=== PATIENT | male | born 1995 | race Caucasian/White ===

== ENCOUNTER 2016-08-19 13:06 | Emergency (ER) | payer OTHER ==
[~2016-08-19] VITALS: Ht 182.9 cm; Wt 102.0 kg
[~2016-08-19 13:06] MED LIST: PROM25TA5 PO
[2016-08-19 13:08] VITALS: BP 136/104; PULSE 110; RESP 16; TEMP 97.2; O2SAT 95
[2016-08-19 13:23] VITALS: O2SAT 100
[2016-08-19] MEDS ORDERED: predniSONE 20 MG TAB PO ONE (13:30)
[2016-08-19] MEDS: RESP: ALBUTEROL 2.5 MG/IPRATROPIUM 0.5 MG NEB (SCH) INH ×2 (13:30→13:31)
--- NOTE | 2016-08-19 13:30 | PD ---
HPI Chief Complaint: Respiratory Symptoms Time Seen by Provider: 13:13 Travel History International Travel<30 days: No Contact w/Intl Traveler<30days: No Traveled to known affect area: No History of Present Illness HPI The patient is a 21-year-old male who presents to the emergency department for shortness of breath and wheezing. The patient notes a week and a half of URI symptoms with cough and congestion. The patient then started wheezing and was seen by his primary physician. The patient was placed on a steroid inhaler which did help for several days, however, his symptoms are not progressing. The patient does complain of a dry nonproductive cough, chest tightness, and audible wheezing. The patient does have a history of asthma with admissions as a child, but no recent hospitalizations. The patient denies any previous intubations. The patient has been using his albuterol inhaler, however, is not currently using his albuterol nebulizer, secondary to running out of his medications. The patient's symptoms are moderate, possibly exacerbated by history of asthma and recent URI, and mildly alleviated with steroid inhaler and albuterol inhaler. PFSH Past Medical History Asthma: Yes Autoimmune Disease: No Blood Disorders: No Anxiety: No Depression: No Cardiovascular Problems: No Diminished Hearing: No Endocrine: No Gastrointestinal Disorders: Yes (per patient "they can't figure out what's wrong" N,V.) Genitourinary: No Immune Disorder: No Musculoskeletal: No Neurologic: Yes (CONCUSSION) Psychiatric: No Reproductive: No Respiratory: Yes (ASTHMA) Tetanus Vaccination: < 5 Years Influenza Vaccination: Yes Past Surgical History Other Surgery: No Social History Alcohol Use: No Tobacco Use: Yes (1/2PPD) Substance Use: Yes (last marajuana 1 week ago) Allergies-Medications (Allergen,Severity, Reaction): Coded Allergies: Dextromethorphan (Verified Allergy, Intermediate, HIVES, 08/19/16) Reported Meds & Prescriptions Reported Meds & Active Scripts Active Review of Systems Except as stated in HPI: all other systems reviewed are Neg General / Constitutional: No: Fever HENT: Positive: Congestion Cardiovascular: Positive: Chest Pain or Discomfort (tightness) Respiratory: Positive: Cough, Shortness of Breath, Wheezing Gastrointestinal: No: Nausea, Vomiting Musculoskeletal: No: Edema Physical Exam Narrative GENERAL: Awake, alert, pleasant 21-year-old male appears his stated age and is in no acute respiratory distress. SKIN: Warm and dry. HEAD: Atraumatic. Normocephalic. EYES: No injection or drainage. ENT: No nasal bleeding or discharge. Mucous membranes pink and moist. NECK: Trachea midline. No JVD. CARDIOVASCULAR: Regular, tachycardic with a heart rate of 110. RESPIRATORY: No accessory muscle use. Prolonged expiratory phase with diffuse wheezing. GASTROINTESTINAL: Abdomen soft, non-tender, nondistended. No rebound tenderness. MUSCULOSKELETAL: No obvious deformities. No clubbing. No cyanosis. No edema. NEUROLOGICAL: Awake and alert. No obvious cranial nerve deficits. Motor grossly within normal limits. Normal speech. PSYCHIATRIC: Appropriate mood and affect; insight and judgment normal. Data Data Last Documented VS Vital Signs Date Time Temp Pulse Resp B/P Pulse Ox O2 Delivery O2 Flow Rate FiO2 08/19/16 13:24 70 16 100 Room Air 08/19/16 13:08 97.2 136/104 Orders Ecg Monitoring (08/19/16 13:18) Oximetry (08/19/16 13:18) Oxygen Administration (08/19/16 13:18) Chest, Single Ap (08/19/16 13:18) Albuterol-Ipratropium Neb (Duoneb Neb) (08/19/16 13:30) Prednisone (Deltasone) (08/19/16 13:30) MDM Medical Decision Making Medical Screen Exam Complete: Yes Emergency Medical Condition: Yes Medical Record Reviewed: Yes Interpretation(s) Chest x-ray reveals negative chest for acute disease. Evidence for previous reduction of clavicular fracture noted on the right. Differential Diagnosis Differential diagnosis includes reactive airway disease, asthma exacerbation, bronchitis, pneumonia, pulmonary embolism, pleural effusion, cardiomyopathy, congestive heart failure. Narrative Course The patient was administered prednisone 60 mg orally. Chest x-ray was obtained. The patient was then provided duo nebs 3. Chest x-ray was negative. The patient was reassessed at 2 PM, his symptoms had significantly improved. The patient be discharged home on prednisone and albuterol nebulizers. He is advised to return if symptoms worsen or progress. Diagnosis Primary Impression: Asthma exacerbation Patient Instructions: General Instructions Additional Instructions: Medications as directed. Follow-up with your primary physician. Return if symptoms worsen or progress. Med/Other Pt SpecificInfo: Prescription(s) given Scripts Albuterol Neb 2.5 Mg/3 Ml Neb2.5 Mg NEB Q4HR NEB #60 NEBULE Ref 0 While awake Prov:Guillermo Rodas MD 08/19/16 Prednisone (Deltasone)20 Mg Tab40 Mg PO DAILY 4 Days Ref 0 Prov:Guillermo Rodas MD 08/19/16 Disposition: 01 DISCHARGE HOME Condition: Stable Guillermo Rodas MD Aug 19, 2016 13:30
--- NOTE | 2016-08-19 13:46 | RADHPO ---
EXAM DATE/TIME: 08/19/2016 13:26 [facility] COMPARISON: CHEST SINGLE AP, March 04, 2015, 22:42. INDICATIONS : Patient states shortness of breath. MEDICAL HISTORY : Asthma SURGICAL HISTORY : None. ENCOUNTER: Initial ACUITY: 1 day PAIN SCORE: 0/10 LOCATION: Bilateral chest FINDINGS: Evidence for previous reduction of clavicular fracture is noted. Lungs are clear. Heart and pulmona ry vascularity are normal. CONCLUSION: Negative chest for acute disease. Chato Vang MD FACR on August 19, 2016 at 13:42 Board Certified Radiologist. This report was verified electronically.
[2016-08-19] MEDS ORDERED: ALBU0.08 NEB (14:03)
[2016-08-19] MEDS ORDERED: PRED-503 PO (14:03)
== END 2016-08-19 14:34 | disposition home or self-care (01) ==
LOC: PHED 13:06
DX: J45.901 Unspecified asthma with (acute) exacerbation (principal); R00.0 Tachycardia, unspecified; F17.210 Nicotine dependence, cigarettes, uncomplicated
CPT/HCPCS: 71010; 94640; 94664; 99284; J7512

== ENCOUNTER 2016-08-26 07:38 | Emergency (ER) | payer OTHER ==
[~2016-08-26] VITALS: Ht 182.9 cm; Wt 110.0 kg
[~2016-08-26 07:38] MED LIST changes: +ALBU0.08 NEB; +PRED-503 PO; -PROM25TA5 PO
[2016-08-26 07:42] VITALS: BP 153/85; PULSE 116; RESP 28; TEMP 98.2; O2SAT 92
[2016-08-26 07:45] VITALS: RESP 20; O2SAT 93; O2SAT 97
[2016-08-26] MEDS: RESP: ALBUTEROL 2.5 MG/IPRATROPIUM 0.5 MG NEB (SCH) INH (07:55)
--- NOTE | 2016-08-26 07:55 | PD ---
HPI Chief Complaint: Respiratory Symptoms Time Seen by Provider: 07:45 Travel History International Travel<30 days: No Contact w/Intl Traveler<30days: No Traveled to known affect area: No History of Present Illness HPI This patient complains of shortness of breath. He has history of asthma and smokes. He does have nebulizer at home. Started this morning. Duration 3 hours. Symptoms are severe. No alleviating factors. He is not having chest pain. No productive cough or fever. He has a chronic dry cough and wheezes often. He arrives critically ill with respiratory rate in the 40s and room air saturation of 88% and very dyspneic. PFSH Past Medical History Asthma: Yes Autoimmune Disease: No Blood Disorders: No Anxiety: No Depression: No Cardiovascular Problems: No Diminished Hearing: No Endocrine: No Gastrointestinal Disorders: Yes (per patient "they can't figure out what's wrong" N,V.) Genitourinary: No Immune Disorder: No Musculoskeletal: No Neurologic: Yes (CONCUSSION) Psychiatric: No Reproductive: No Respiratory: Yes Influenza Vaccination: Yes ?: Not Past Surgical History Other Surgery: No Social History Alcohol Use: No Tobacco Use: Yes (1/2PPD) Substance Use: Yes (last marajuana 1 week ago) Allergies-Medications (Allergen,Severity, Reaction): Coded Allergies: Dextromethorphan (Verified Allergy, Intermediate, HIVES, 08/26/16) Reported Meds & Prescriptions Reported Meds & Active Scripts Active Albuterol Neb (Albuterol Sulfate) 2.5 Mg/3 Ml Neb 2.5 Mg NEB Q4HR NEB While awake Review of Systems General / Constitutional: No: Fever Eyes: No: Visual changes HENT: No: Headaches Cardiovascular: Positive: Tachycardia, No: Chest Pain or Discomfort Respiratory: Positive: Cough, Shortness of Breath, Wheezing Gastrointestinal: No: Abdominal Pain Genitourinary: No: Dysuria Musculoskeletal: No: Pain Skin: No Rash Neurologic: No: Weakness Psychiatric: No: Depression Endocrine: No: Polydipsia Hematologic/Lymphatic: No: Easy Bruising Physical Exam Narrative GENERAL: Well-nourished, well-developed patient in respiratory distress. SKIN: Warm and dry. HEAD: Atraumatic. Normocephalic. EYES: Pupils equal and round. No scleral icterus. No injection or drainage. ENT: No nasal bleeding or discharge. Mucous membranes pink and moist. NECK: Trachea midline. No JVD. CARDIOVASCULAR: Regular rate and rhythm. No murmur appreciated. Tachycardic at 120 RESPIRATORY: Positive accessory muscle use. Diffuse expiratory wheezing without crackles. Respiratory rate of 45. GASTROINTESTINAL: Abdomen soft, non-tender, nondistended. Hepatic and splenic margins not palpable. MUSCULOSKELETAL: No obvious deformities. No clubbing. No cyanosis. No edema. NEUROLOGICAL: Awake and alert. No obvious cranial nerve deficits. Motor grossly within normal limits. Normal speech. PSYCHIATRIC: Appropriate mood and affect; insight and judgment normal. Data Data Last Documented VS Vital Signs Date Time Temp Pulse Resp B/P Pulse Ox O2 Delivery O2 Flow Rate FiO2 08/26/16 09:16 110 16 92 Nasal Cannula 2 08/26/16 08:30 143/74 08/26/16 07:42 98.2 Orders Complete Blood Count With Diff (08/26/16 07:48) Basic Metabolic Panel (Bmp) (08/26/16 07:48) Iv Access Insert/Monitor (08/26/16 07:48) Ecg Monitoring (08/26/16 07:48) Oximetry (08/26/16 07:48) Oxygen Administration (08/26/16 07:48) Chest, Single Ap (08/26/16 07:48) Sodium Chloride 0.9% Flush (Ns Flush) (08/26/16 08:00) Methylprednisolone So Succ Inj (Solumedr (08/26/16 08:00) Albuterol-Ipratropium Neb (Duoneb Neb) (08/26/16 08:00) Labs Laboratory Tests Test 08/26/16 08:05 White Blood Count 11.9 TH/MM3 Red Blood Count 5.09 MIL/MM3 Hemoglobin 15.3 GM/DL Hematocrit 45.5 % Mean Corpuscular Volume 89.4 FL Mean Corpuscular Hemoglobin 30.1 PG Mean Corpuscular Hemoglobin 33.7 % Concent Red Cell Distribution Width 13.2 % Platelet Count 199 TH/MM3 Mean Platelet Volume 7.7 FL Neutrophils (%) (Auto) 62.5 % Lymphocytes (%) (Auto) 22.1 % Monocytes (%) (Auto) 5.7 % Eosinophils (%) (Auto) 8.4 % Basophils (%) (Auto) 1.3 % Neutrophils # (Auto) 7.4 TH/MM3 Lymphocytes # (Auto) 2.6 TH/MM3 Monocytes # (Auto) 0.7 TH/MM3 Eosinophils # (Auto) 1.0 TH/MM3 Basophils # (Auto) 0.2 TH/MM3 CBC Comment DIFF FINAL Differential Comment Sodium Level 140 MEQ/L Potassium Level 3.3 MEQ/L Chloride Level 102 MEQ/L Carbon Dioxide Level 31.4 MEQ/L Anion Gap 7 MEQ/L Blood Urea Nitrogen 11 MG/DL Creatinine 0.98 MG/DL Estimat Glomerular Filtration 95 ML/MIN Rate Random Glucose 104 MG/DL Calcium Level 9.4 MG/DL MDM Medical Decision Making Medical Screen Exam Complete: Yes Emergency Medical Condition: Yes Medical Record Reviewed: Yes Differential Diagnosis Asthma exacerbation, pneumonia, pneumothorax Narrative Course I have reviewed the patient's electronic medical record. Patient was here for asthma exacerbation one week ago IV placed I gave him a series of 3 nebulizer treatments Placed him on oxygen Extended cardiac monitoring reveals sinus tachycardia without ectopy I reviewed his chest x-ray which is normal CBC is normal Metabolic profile is normal Patient arrived critically ill and was hypoxic on room air with tachypnea and tachycardia and respiratory distress On recheck he is clinically significantly improved. No longer critically ill. Oxygen saturation on room air is now 99% There is minor residual wheeze but much improved. He needs to quit smoking 5 days of prednisone written He has a nebulizer at home and a primary physician Critical Care Narrative Aggregate critical care time was 34 minutes. Time to perform other separately billable procedures was not included in the critical care time. My time did not include minutes spent treating any other patients simultaneously or on activities that did not directly contribute to the patient's treatment. The services I provided to this patient were to treat and/or prevent clinically significant deterioration that could result in: Cardiopulmonary arrest, cardiac arrhythmia, hypoxemic brain injury I provided critical care services requiring my management, as noted below: Chart data review, documentation time, medication orders and management, vital sign assessments/reviewing monitor data, ordering and reviewing lab tests, ordering and interpreting/reviewing x-rays and diagnostic studies, care of the patient and discussion of the patient with the admitting physicians. Diagnosis Primary Impression: Acute respiratory failure with hypoxia Additional Impression: Asthma exacerbation Additional Instructions: The patient was advised to follow up with their physician and return if they worsen. Quit smoking Med/Other Pt SpecificInfo: Prescription(s) given Scripts Prednisone 20 Mg Tab40 Mg PO DAILY #10 TAB Ref 0 Take 40 mg (2 tablets) daily for 5 days Prov:Yadiel Nuno MD 08/26/16 Disposition: 01 DISCHARGE HOME Condition: Stable Yadiel Nuno MD Aug 26, 2016 07:55
[2016-08-26] MEDS ORDERED: methylPREDNISolone SOD SUCC 125 MG/2 ML VIAL IVP ONE (08:00)
[2016-08-26] MEDS ORDERED: SODIUM CHLORIDE 0.9% FLUSH 5 ML FLUSH IVF PRN (08:00)
[2016-08-26 08:15] VITALS: BP 153/85; PULSE 111; RESP 16; O2SAT 93
[2016-08-26 08:25] LABS: AUTOMATED NEUTROPHIL # 7.4 TH/MM3 (1.8-7.7); BASOPHIL # 0.2 TH/MM3 (0-0.2); BASOPHIL % 1.3 % (0.0-2.0); EOSINOPHIL % 8.4 % (0.0-4.0); HEMATOCRIT 45.5 % (39.0-51.0); HEMO FLAGS DIFF FINAL; LYMPH % 22.1 % (9.0-44.0); LYMPHOCYTE # 2.6 TH/MM3 (1.0-4.8); MEAN CELL VOLUME 89.4 FL (80.0-100.0); MEAN CORPUSCULAR HEMOGLOBIN 30.1 PG (27.0-34.0); MEAN CORPUSCULAR HGB CONC 33.7 % (32.0-36.0); MONO % 5.7 % (0.0-8.0); NEUT % 62.5 % (16.0-70.0); PLATELET COUNT 199 TH/MM3 (150-450); POTASSIUM 3.3 MEQ/L (3.5-5.1); RED BLOOD COUNT 5.09 MIL/MM3 (4.50-5.90); RED CELL DISTRIBUTION WIDTH 13.2 % (11.6-17.2); WHITE BLOOD COUNT 11.9 TH/MM3 (4.0-11.0)
[2016-08-26 08:29] LABS: BICARBONATE 31.4 MEQ/L (21.0-32.0)
[2016-08-26 08:30] VITALS: BP 143/74; PULSE 110; RESP 18; O2SAT 91
--- NOTE | 2016-08-26 09:21 | RADHPO ---
EXAM DATE/TIME: 08/26/2016 07:56 [facility] COMPARISON: CHEST SINGLE AP, August 19, 2016, 13:26. INDICATIONS : Severe short of breath. MEDICAL HISTORY : Asthma. Smoker. SURGICAL HISTORY : ORIF right clavicle. ENCOUNTER: Initial ACUITY: 1 day PAIN SCORE: 0/10 LOCATION: chest FINDINGS: A single view of the chest demonstrates the lungs to be symmetrically aerated without evidence of mas s, infiltrate or effusion. The cardiomediastinal contours are unremarkable. Osseous structures are intact with screw plate fixation device again noted over the right clavicle. There overlying a ctroca rdiogram leads and oxygen tubing. CONCLUSION: No acute disease. Wilian Ritchie MD on August 26, 2016 at 9:19 Board Certified Radiologist. This report was verified electronically.
[2016-08-26] MEDS ORDERED: PRED20 PO (10:12)
[2016-08-26 10:26] VITALS: BP 135/88
== END 2016-08-26 10:33 | disposition home or self-care (01) ==
LOC: PHED 07:45
DX: J96.01 Acute respiratory failure with hypoxia (principal); J45.901 Unspecified asthma with (acute) exacerbation; F17.210 Nicotine dependence, cigarettes, uncomplicated
CPT/HCPCS: 71010; 80048; 85025; 94640; 94664; 96374; 99291; J2930

== ENCOUNTER 2016-09-06 04:06 | Emergency (ER) | payer OTHER ==
[~2016-09-06] VITALS: Ht 182.9 cm; Wt 108.5 kg
[~2016-09-06 04:06] MED LIST changes: -PRED-503 PO; +PRED20 PO
[2016-09-06 04:21] VITALS: BP 123/86; PULSE 92; RESP 20; TEMP 97.6; O2SAT 96
[2016-09-06] MEDS ORDERED: DEXAMETHASONE SOD PHOS 4 MG/ML VIAL IM ONE (04:30)
--- NOTE | 2016-09-06 04:35 | PD ---
HPI Chief Complaint: Respiratory Symptoms Time Seen by Provider: 04:26 Travel History International Travel<30 days: No Contact w/Intl Traveler<30days: No Traveled to known affect area: No History of Present Illness HPI 31-year-old male complains of shortness of breath. Patient has history of asthma. Patient states that he woke up in the middle night with shortness of breath and wheezing. Patient denies any fever chills. Patient denies any coughing congestion. Patient denies any chest pain. Patient gave himself an albuterol treatment before coming to the emergency room. PFSH Past Medical History Asthma: Yes Autoimmune Disease: No Blood Disorders: No Anxiety: No Depression: No Cardiovascular Problems: No Diminished Hearing: No Endocrine: No Gastrointestinal Disorders: Yes (per patient "they can't figure out what's wrong" N,V.) Genitourinary: No Immune Disorder: No Musculoskeletal: No Neurologic: Yes (CONCUSSION) Psychiatric: No Reproductive: No Respiratory: Yes Tetanus Vaccination: < 5 Years Influenza Vaccination: Yes Past Surgical History Other Surgery: No Social History Alcohol Use: No Tobacco Use: Yes (1/2PPD) Substance Use: Yes (last marajuana 1 week ago) Allergies-Medications (Allergen,Severity, Reaction): Coded Allergies: Dextromethorphan (Verified Allergy, Intermediate, HIVES, 09/06/16) Reported Meds & Prescriptions Reported Meds & Active Scripts Active Albuterol Neb (Albuterol Sulfate) 2.5 Mg/3 Ml Neb 2.5 Mg NEB Q4HR NEB While awake Review of Systems General / Constitutional: No: Fever Eyes: No: Visual changes HENT: No: Headaches Cardiovascular: No: Chest Pain or Discomfort Respiratory: Positive: Shortness of Breath, Wheezing Gastrointestinal: No: Abdominal Pain Genitourinary: No: Dysuria Musculoskeletal: No: Pain Skin: No Rash Neurologic: No: Weakness Psychiatric: No: Depression Endocrine: No: Polydipsia Hematologic/Lymphatic: No: Easy Bruising Physical Exam Narrative GENERAL: Well-nourished, well-developed patient. SKIN: Warm and dry. HEAD: Normocephalic. EYES: No scleral icterus. No injection or drainage. NECK: Supple, trachea midline. No JVD or lymphadenopathy. CARDIOVASCULAR: Regular rate and rhythm without murmurs, gallops, or rubs. RESPIRATORY: Breath sounds equal bilaterally. No accessory muscle use. Patient has moderate expiratory wheezes bilaterally. No rhonchi. GASTROINTESTINAL: Abdomen soft, non-tender, nondistended. MUSCULOSKELETAL: No cyanosis, or edema. BACK: Nontender without obvious deformity. No CVA tenderness. Neurologic exam normal. Data Data Last Documented VS Vital Signs Date Time Temp Pulse Resp B/P Pulse Ox O2 Delivery O2 Flow Rate FiO2 09/06/16 04:24 96 20 96 Room Air 09/06/16 04:21 97.6 123/86 Orders Albuterol-Ipratropium Neb (Duoneb Neb) (09/06/16 04:30) Dexamethasone Inj (Decadron Inj) (09/06/16 04:30) [facility] Medical Decision Making Medical Screen Exam Complete: Yes Emergency Medical Condition: Yes Medical Record Reviewed: Yes Differential Diagnosis Differential diagnosis including acute exacerbation of asthma, bronchitis, pneumonia, PE, pneumothorax. Narrative Course 21-year-old male with shortness of breath and wheezing. History of asthma. Albuterol with Atrovent unit dose treatment 3. Decadron 8 mg IM. Diagnosis Primary Impression: Acute asthma exacerbation Qualified Code: J45.51 - Severe persistent asthma with acute exacerbation Patient Instructions: General Instructions Additional Instructions: Continue with nebulizer treatment as needed. Take medication as directed. Follow-up with personal physician. Return if worse. Advised patient to stop smoking. Med/Other Pt SpecificInfo: Prescription(s) given Scripts Prednisone (Deltasone)20 Mg Tab20 Mg PO BID #14 TAB Ref 0 Prov:Brendan Mercer MD 09/06/16 Albuterol Neb 2.5 Mg/3 Ml Neb2.5 Mg NEB Q4HR NEB #60 NEBULE Ref 0 While awake Prov:Brendan Mercer MD 09/06/16 Ipratropium Neb 0.5 Mg/2.5 Ml Amp0.5 Mg NEB Q4HR NEB #30 NEBULE Ref 0 Prov:Brendan Mercer MD 09/06/16 Disposition: 01 DISCHARGE HOME Condition: Stable Brendan Mercer MD Sep 06, 2016 04:35
[2016-09-06] MEDS: RESP: ALBUTEROL 2.5 MG/IPRATROPIUM 0.5 MG NEB (SCH) INH (04:38)
[2016-09-06 05:19] VITALS: BP 137/85; PULSE 92; RESP 18; O2SAT 96
[2016-09-06] MEDS ORDERED: IPRA0.02 NEB (05:21)
[2016-09-06] MEDS ORDERED: PRED-503 PO (05:23)
[2016-09-06] MEDS ORDERED: ALBU0.08 NEB (05:23)
== END 2016-09-06 05:33 | disposition home or self-care (01) ==
LOC: PHED 04:06
DX: J45.901 Unspecified asthma with (acute) exacerbation (principal); F17.210 Nicotine dependence, cigarettes, uncomplicated; F12.10 Cannabis abuse, uncomplicated
CPT/HCPCS: 94640; 94664; 96372; 99284; J1100

== ENCOUNTER 2016-09-11 01:35 | Emergency (ER) | payer SELFPAY ==
[~2016-09-11] VITALS: Ht 195.6 cm; Wt 109.7 kg
[~2016-09-11 01:35] MED LIST changes: +IPRA0.02 NEB; +PRED-503 PO; -PRED20 PO
[2016-09-11 01:43] VITALS: BP 145/77; PULSE 123; RESP 28; TEMP 97.7; O2SAT 94
[2016-09-11] MEDS: RESP: ALBUTEROL 2.5 MG/IPRATROPIUM 0.5 MG NEB (SCH) INH ×2 (01:54→01:55)
--- NOTE | 2016-09-11 02:12 | PD ---
HPI Chief Complaint: Respiratory Symptoms Time Seen by Provider: 01:44 Travel History International Travel<30 days: No Contact w/Intl Traveler<30days: No Traveled to known affect area: No History of Present Illness HPI The patient is a 38-year-old male with a long history of asthma who complains of fairly sudden onset of shortness of breath beginning at midnight tonight. The patient has had episodes of acute asthma since the beginning of last month. He is currently on 40 mg of prednisone daily. He denies any fever or chills. The patient denies any chest pain other than the usual tightness he gets with asthma. He gave himself an albuterol and ipratropium treatment nebulizer before he came into the emergency room tonight, this was done at 11 PM tonight. He does not have a cage maker and Dr. Miguel Winter is his primary care physician. He continues to smoke one half pack a day but he has not smoked in the last 2 weeks because of his severe asthma symptoms. He used to smoke marijuana but he has not done that in over 2 months. The patient states that the symptoms only occur when he is at home and never at work or anywhere else. PFSH Past Medical History Asthma: Yes Autoimmune Disease: No Blood Disorders: No Anxiety: No Depression: No Cardiovascular Problems: No Diminished Hearing: No Endocrine: No Gastrointestinal Disorders: Yes (per patient "they can't figure out what's wrong" N,V.) Genitourinary: No Immune Disorder: No Musculoskeletal: No Neurologic: Yes (CONCUSSION middle school age ) Psychiatric: No Reproductive: No Respiratory: Yes Past Surgical History Other Surgery: No Social History Alcohol Use: No Tobacco Use: Yes () Substance Use: Yes (july 2016) Allergies-Medications (Allergen,Severity, Reaction): Coded Allergies: Dextromethorphan (Verified Allergy, Intermediate, HIVES, 09/11/16) Reported Meds & Prescriptions Reported Meds & Active Scripts Active Deltasone (Prednisone) 20 Mg Tab 20 Mg PO BID Albuterol Neb (Albuterol Sulfate) 2.5 Mg/3 Ml Neb 2.5 Mg NEB Q4HR NEB While awake Ipratropium Neb (Ipratropium [place]) 0.5 Mg/2.5 Ml Amp 0.5 Mg NEB Q4HR NEB Review of Systems Except as stated in HPI: all other systems reviewed are Neg Physical Exam Narrative GENERAL: The patient is alert, oriented 3 in moderate respiratory distress. His vital signs show pulse of 123, respiratory rate of 28, blood pressure 145/ 77 with oximetry 94% on room air. SKIN: Warm and dry. HEAD: Atraumatic. Normocephalic. EYES: Pupils equal and round. No scleral icterus. No injection or drainage. ENT: No nasal bleeding or discharge. Mucous membranes pink and moist. NECK: Trachea midline. No JVD. CARDIOVASCULAR: Regular rate and rhythm. No murmur appreciated. RESPIRATORY: No accessory muscle use. Diminished breath sounds are present bilaterally, bilateral wheezes are heard. GASTROINTESTINAL: Abdomen soft, non-tender, nondistended. Hepatic and splenic margins not palpable. MUSCULOSKELETAL: No obvious deformities. No clubbing. No cyanosis. No edema. NEUROLOGICAL: Awake and alert. No obvious cranial nerve deficits. Motor grossly within normal limits. Normal speech. PSYCHIATRIC: Appropriate mood and affect; insight and judgment normal. Data Data Last Documented VS Vital Signs Date Time Temp Pulse Resp B/P Pulse Ox O2 Delivery O2 Flow Rate FiO2 09/11/16 01:48 123 26 94 Room Air 09/11/16 01:43 97.7 145/77 Orders Albuterol-Ipratropium Neb (Duoneb Neb) (09/11/16 01:45) Resp Peak Flow Rate (09/11/16 ) Complete Blood Count With Diff (09/11/16 02:13) Comprehensive Metabolic Panel (09/11/16 02:13) Magnesium (Mg) (09/11/16 02:13) Arterial Blood Gas (Abg) (09/11/16 02:13) Iv Access Insert/Monitor (09/11/16 02:13) Ecg Monitoring (09/11/16 02:13) Oximetry (09/11/16 02:13) Oxygen Administration (09/11/16 02:13) Sodium Chloride 0.9% Flush (Ns Flush) (09/11/16 02:15) Methylprednisolone So Succ Inj (Solumedr (09/11/16 02:15) Chest, Pa & Lat (09/11/16 02:52) Labs Laboratory Tests Test 09/11/16 09/11/16 09/11/16 02:23 02:30 03:08 Blood Gas Puncture Site RT RADIAL Blood Gas Patient Temperature 98.6 Blood Gas HCO3 26 mmol/L Blood Gas Base Excess 1.7 mmol/L Blood Gas Oxygen Saturation 94 % Arterial Blood pH 7.40 Arterial Blood Partial 43 mmHG Pressure CO2 Arterial Blood Partial 90 mmHG Pressure O2 Arterial Blood Oxygen Content 19.3 Vol % Arterial Blood 2.1 % Carboxyhemoglobin Arterial Blood Methemoglobin 1.1 % Blood Gas Hemoglobin 14.5 G/DL Blood Gas Inspired Oxygen 21 % White Blood Count 10.2 TH/MM3 Red Blood Count 4.67 MIL/MM3 Hemoglobin 14.4 GM/DL Hematocrit 41.8 % Mean Corpuscular Volume 89.4 FL Mean Corpuscular Hemoglobin 30.8 PG Mean Corpuscular Hemoglobin 34.4 % Concent Red Cell Distribution Width 13.0 % Platelet Count 195 TH/MM3 Mean Platelet Volume 8.4 FL Neutrophils (%) (Auto) 65.5 % Lymphocytes (%) (Auto) 22.8 % Monocytes (%) (Auto) 4.5 % Eosinophils (%) (Auto) 6.5 % Basophils (%) (Auto) 0.7 % Neutrophils # (Auto) 6.6 TH/MM3 Lymphocytes # (Auto) 2.3 TH/MM3 Monocytes # (Auto) 0.5 TH/MM3 Eosinophils # (Auto) 0.7 TH/MM3 Basophils # (Auto) 0.1 TH/MM3 CBC Comment DIFF FINAL Differential Comment Sodium Level 142 MEQ/L Potassium Level 3.7 MEQ/L Chloride Level 105 MEQ/L Carbon Dioxide Level 29.1 MEQ/L Anion Gap 8 MEQ/L Blood Urea Nitrogen 11 MG/DL Creatinine 1.20 MG/DL Estimat Glomerular Filtration 75 ML/MIN Rate Random Glucose 162 MG/DL Calcium Level 9.0 MG/DL Magnesium Level 2.3 MG/DL Total Bilirubin 0.1 MG/DL Aspartate Amino Transf 14 U/L (AST/SGOT) Alanine Aminotransferase 37 U/L (ALT/SGPT) Alkaline Phosphatase 78 U/L Total Protein 6.6 GM/DL Albumin 3.5 GM/DL [facility] Medical Decision Making Medical Screen Exam Complete: Yes Emergency Medical Condition: Yes Medical Record Reviewed: Yes Differential Diagnosis Acute asthma, allergic reaction, pneumonia Narrative Course The patient has acute asthma. Apparently, there is something in his home that he is allergic to horse at his asthma. This may be pollen. It may be a good idea to close his windows and turn on the air conditioner and change the air- conditioner filters. He is told that pollen often builds up in the home when the windows are open. He should follow-up with a cage maker. It is now [id number] and the patient feels much better and wants to go home. Diagnosis Primary Impression: Acute asthma exacerbation Additional Instructions: As we discussed, follow-up with a cage maker. It may benefit you to close the windows, turned on the air conditioner and change the air-conditioner filters. Take the steroids as prescribed. Med/Other Pt SpecificInfo: No Change to Meds Disposition: 01 DISCHARGE HOME Condition: Stable Toi Espinoza MD Sep 11, 2016 02:12
[2016-09-11] MEDS ORDERED: SODIUM CHLORIDE 0.9% FLUSH 5 ML FLUSH IVF PRN (02:15)
[2016-09-11] MEDS ORDERED: methylPREDNISolone SOD SUCC 125 MG/2 ML VIAL IVP ONE (02:15)
[2016-09-11 02:31] LABS: BLOOD GAS BASE EXCESS 1.7 mmol/L (-2-2); BLOOD GAS CARBOXYHEMOGLOBIN 2.1 % (0-4); BLOOD GAS HCO3 26 mmol/L (22-26); BLOOD GAS METHEMOGLOBIN 1.1 % (0-2); BLOOD GAS O2 HGB SATURATION 94 % (90-100); BLOOD GAS OXYGEN CONTENT 19.3 Vol % (12.0-20.0); BLOOD GAS PCO2 43 mmHG (38-42); BLOOD GAS PO2 90 mmHG (61-120); BLOOD GAS TOTAL HGB 14.5 G/DL (12.0-16.0); TEMP CORR TO 98.6
[2016-09-11 02:32] LABS: CRITICAL VALUE NO; DRAW SITE RT RADIAL; FIO2 21 %; NUMBER OF ARTERIAL PUNCTURES 1; STAT YES; ULNAR PULSE Y
[2016-09-11 02:54] LABS: AUTOMATED NEUTROPHIL # 6.6 TH/MM3 (1.8-7.7); BASOPHIL # 0.1 TH/MM3 (0-0.2); BASOPHIL % 0.7 % (0.0-2.0); EOSINOPHIL # 0.7 TH/MM3 (0-0.4); EOSINOPHIL % 6.5 % (0.0-4.0); HEMATOCRIT 41.8 % (39.0-51.0); HEMO FLAGS DIFF FINAL; LYMPH % 22.8 % (9.0-44.0); LYMPHOCYTE # 2.3 TH/MM3 (1.0-4.8); MEAN CELL VOLUME 89.4 FL (80.0-100.0); MEAN CORPUSCULAR HEMOGLOBIN 30.8 PG (27.0-34.0); MEAN CORPUSCULAR HGB CONC 34.4 % (32.0-36.0); MONO % 4.5 % (0.0-8.0); NEUT % 65.5 % (16.0-70.0); PLATELET COUNT 195 TH/MM3 (150-450); RED BLOOD COUNT 4.67 MIL/MM3 (4.50-5.90); WHITE BLOOD COUNT 10.2 TH/MM3 (4.0-11.0)
[2016-09-11 03:24] LABS: CHLORIDE 105 MEQ/L (98-107); POTASSIUM 3.7 MEQ/L (3.5-5.1); SODIUM (NA) 142 MEQ/L (136-145)
[2016-09-11 03:28] LABS: ANION GAP 8 MEQ/L (5-15); BICARBONATE 29.1 MEQ/L (21.0-32.0); BLOOD UREA NITROGEN 11 MG/DL (7-18); MAGNESIUM 2.3 MG/DL (1.5-2.5)
[2016-09-11 03:31] LABS: ALT (GPT) 37 U/L (12-78); AST (GOT) 14 U/L (15-37); GLOMERULAR FILTRATION RATE 75 ML/MIN (>89)
[2016-09-11 03:33] LABS: TOTAL BILIRUBIN ADULT 0.1 MG/DL (0.2-1.0)
[2016-09-11 03:34] LABS: ALKALINE PHOSPHATASE 78 U/L (45-117)
[2016-09-11 04:21] VITALS: BP 118/67
--- NOTE | 2016-09-11 04:39 | RADHPO ---
EXAM DATE/TIME: 09/11/2016 03:21 [facility] COMPARISON: CHEST SINGLE AP, August 26, 2016, 7:56. INDICATIONS : Patient states shortness of breath. MEDICAL HISTORY : Asthma SURGICAL HISTORY : Clavicle repair 2014 ENCOUNTER: Initial ACUITY: 2 days PAIN SCORE: 2/10 LOCATION: Bilateral chest FINDINGS: PA and lateral views of the chest demonstrate the lungs to be symmetrically aerated without evidence of mass, infiltrate or effusion. The cardiomediastinal contours are unremarkable. Plating of previou s clavicle fracture again noted on the right. CONCLUSION: No acute disease. Jacob Do MD on September 11, 2016 at 4:36 Board Certified Radiologist. This report was verified electronically.
== END 2016-09-11 04:23 | disposition home or self-care (01) ==
LOC: PHED 01:35
DX: J45.901 Unspecified asthma with (acute) exacerbation (principal); F17.210 Nicotine dependence, cigarettes, uncomplicated
CPT/HCPCS: 36600; 71020; 80053; 82805; 83735; 85025; 94640; 94664; 94799; 96374; 99283; J2930

== ENCOUNTER 2016-09-26 19:21 | Observation (INO) | payer SELFPAY ==
[~2016-09-26] VITALS: Ht 182.9 cm; Wt 108.5 kg
[2016-09-26] VITALS (7 sets, daily range): BP systolic 126–137; BP diastolic 60–88; PULSE 118–125; RESP 20–22; TEMP 98.2; O2SAT 88–95
[2016-09-26] MEDS ORDERED: predniSONE 20 MG TAB PO ONE (19:45)
[2016-09-26] MEDS ORDERED: RESP: ALBUTEROL 2.5 MG/IPRATROPIUM 0.5 MG NEB (SCH) NEB ONE (19:45)
--- NOTE | 2016-09-26 19:57 | PD ---
HPI Chief Complaint: Respiratory Symptoms Time Seen by Provider: 19:27 Travel History International Travel<30 days: No Contact w/Intl Traveler<30days: No Traveled to known affect area: No History of Present Illness HPI Patient is a 21-year-old male presents emergency department for evaluation of shortness of breath. Patient states she has a history of asthma is been trying his inhalers and nebulizers at home without relief. He was last seen here on September 11. States his last time he was seen for his asthma. Patient denies any cough cold flu symptoms denies any chest pain. Denies any history of blood clots. Denies any fevers. PFSH Past Medical History Asthma: Yes Autoimmune Disease: No Blood Disorders: No Anxiety: No Depression: No Cardiovascular Problems: No Diminished Hearing: No Endocrine: No Gastrointestinal Disorders: Yes (per patient "they can't figure out what's wrong" N,V.) Genitourinary: No Immune Disorder: No Musculoskeletal: No Neurologic: Yes (CONCUSSION middle school age ) Psychiatric: No Reproductive: No Respiratory: Yes Tetanus Vaccination: < 5 Years Influenza Vaccination: Yes Past Surgical History Other Surgery: No Social History Alcohol Use: No Tobacco Use: Yes () Substance Use: Yes (july 2016) Allergies-Medications (Allergen,Severity, Reaction): Coded Allergies: Dextromethorphan (Verified Allergy, Intermediate, HIVES, 09/26/16) Reported Meds & Prescriptions Reported Meds & Active Scripts Active Albuterol Neb (Albuterol Sulfate) 2.5 Mg/3 Ml Neb 2.5 Mg NEB Q4HR NEB While awake Ipratropium Neb (Ipratropium [place]) 0.5 Mg/2.5 Ml Amp 0.5 Mg NEB Q4HR NEB Review of Systems Except as stated in HPI: all other systems reviewed are Neg Physical Exam Narrative GENERAL: Well-nourished, well-developed patient. SKIN: Warm and dry. HEAD: Normocephalic. EYES: No scleral icterus. No injection or drainage. NECK: Supple, trachea midline. No JVD or lymphadenopathy. CARDIOVASCULAR: Regular rhythm tachycardia without murmurs, gallops, or rubs. RESPIRATORY: No increased work of breathing, there are inspiratory extra wheezes and decreased air entry. No accessory muscle uses.. GASTROINTESTINAL: Abdomen soft, non-tender, nondistended. MUSCULOSKELETAL: No cyanosis, or edema. BACK: Nontender without obvious deformity. No CVA tenderness. Data Data Last Documented VS Vital Signs Date Time Temp Pulse Resp B/P Pulse Ox O2 Delivery O2 Flow Rate FiO2 09/26/16 22:30 125 20 126/73 95 Nasal Cannula 09/26/16 22:15 2 09/26/16 19:31 98.2 Orders Albuterol-Ipratropium Neb (Duoneb Neb) (09/26/16 19:45) Prednisone (Deltasone) (09/26/16 19:45) Basic Metabolic Panel (Bmp) (09/26/16 20:35) Complete Blood Count With Diff (09/26/16 20:35) Chest, Single Ap (09/26/16 20:35) Ecg Monitoring (09/26/16 20:35) Iv Access Insert/Monitor (09/26/16 20:35) Oximetry (09/26/16 20:35) Oxygen Administration (09/26/16 20:35) Albuterol-Ipratropium Neb (Duoneb Neb) (09/26/16 20:45) Sodium Chloride 0.9% Flush (Ns Flush) (09/26/16 20:45) Magnesium Sulfate 1 Gm Premix (Magnesium (09/26/16 20:45) Blood Gas Venous (Vbg) (09/26/16 20:47) Ampicillin-Sulbactam Inj (Unasyn Inj) (09/26/16 23:00) Levofloxacin 750 Mg Premix Inj (Levaquin (09/26/16 23:30) Admit Order (Ed Use Only) (09/26/16 ) Labs Laboratory Tests Test 09/26/16 09/26/16 21:00 21:03 White Blood Count 18.8 TH/MM3 Red Blood Count 5.12 MIL/MM3 Hemoglobin 15.4 GM/DL Hematocrit 46.4 % Mean Corpuscular Volume 90.6 FL Mean Corpuscular Hemoglobin 30.2 PG Mean Corpuscular Hemoglobin 33.3 % Concent Red Cell Distribution Width 13.4 % Platelet Count 147 TH/MM3 Mean Platelet Volume 9.1 FL Neutrophils (%) (Auto) 83.0 % Lymphocytes (%) (Auto) 8.5 % Monocytes (%) (Auto) 4.3 % Eosinophils (%) (Auto) 2.5 % Basophils (%) (Auto) 1.7 % Neutrophils # (Auto) 15.6 TH/MM3 Lymphocytes # (Auto) 1.6 TH/MM3 Monocytes # (Auto) 0.8 TH/MM3 Eosinophils # (Auto) 0.5 TH/MM3 Basophils # (Auto) 0.3 TH/MM3 CBC Comment AUTO DIFF Differential Comment AUTO DIFF CONFIRMED Platelet Estimate NORMAL Platelet Morphology Comment NORMAL Sodium Level 142 MEQ/L Potassium Level 3.4 MEQ/L Chloride Level 102 MEQ/L Carbon Dioxide Level 29.6 MEQ/L Anion Gap 10 MEQ/L Blood Urea Nitrogen 11 MG/DL Creatinine 1.10 MG/DL Estimat Glomerular Filtration 83 ML/MIN Rate Random Glucose 116 MG/DL Calcium Level 9.8 MG/DL Blood Gas Puncture Site LT ARM Blood Gas Patient Temperature 98.6 Venous Blood pH 7.39 Venous Blood Partial Pressure 47 mmHg CO2 Venous Blood Partial Pressure 27 mmHg O2 Venous Blood HCO3 28 mmol/L Venous Blood Oxygen Saturation 43 % Venous Blood Oxygen Content 9.5 Vol % Venous Blood Base Excess 3.7 mmol/L Oxygen Delivery Device ROOM AIR Blood Gas Inspired Oxygen 21 % MDM Medical Decision Making Medical Screen Exam Complete: Yes Emergency Medical Condition: Yes Differential Diagnosis SOB, Hypoxia, PNA, Asthma exacerbation Narrative Course Patient roomed in the ER, appears well and in NAD. Fairly hypoxic on arrival and was 91%. Given 3 duoneb on arrival, afterwards still fairly hypoxic. Patient given additional 3 duonebs. Seen saturating 88 on room air after the duonebs. Also given prednisone 60mg po, levaquin IV, magnesium IV. Discussed with Jacob Xiao and will be Admitted to Dr. Navarrete for further workup and admission. CBC and BMP show elevated WBC to 18, otherwise reassuring. CXR negative. Diagnosis Primary Impression: Acute respiratory failure with hypoxia Additional Impression: Acute asthma exacerbation Admitting Information Admitting Physician Requests: Admit Condition: Stable Zion Shook MD Sep 26, 2016 19:57
[2016-09-26] MEDS: RESP: ALBUTEROL 2.5 MG/IPRATROPIUM 0.5 MG NEB (SCH) INH ×2 (20:43→20:44)
[2016-09-26] MEDS ORDERED: SODIUM CHLORIDE 0.9% FLUSH 5 ML FLUSH IVF PRN (20:45)
--- NOTE | 2016-09-26 21:06 | RADHPO ---
EXAM DATE/TIME: 09/26/2016 20:47 [facility] COMPARISON: CHEST SINGLE AP, August 26, 2016, 7:56. INDICATIONS : Short of breath with history of asthma. MEDICAL HISTORY : asthma SURGICAL HISTORY : None. ENCOUNTER: Initial ACUITY: 2 days PAIN SCORE: 5/10 LOCATION: Bilateral upper chest FINDINGS: A single view of the chest demonstrates the lungs to be symmetrically aerated without evidence of mas s, infiltrate or effusion. The cardiomediastinal contours are unremarkable. Osseous structures are intact and stable. Stable internal fixation of the right clavicle.. CONCLUSION: No acute disease. No significant change has occurred. Teofilo Kramer MD on September 26, 2016 at 21:04 Board Certified Radiologist. This report was verified electronically.
[2016-09-26 21:12] LABS: BLOOD GAS VENOUS BASE EXCESS 3.7 mmol/L (-2-2); BLOOD GAS VENOUS HCO3 28 mmol/L (22-26); BLOOD GAS VENOUS O2 CONTENT 9.5 Vol % (9.0-17.0); BLOOD GAS VENOUS O2 HGB SAT 43 % (70-76); BLOOD GAS VENOUS PCO2 47 mmHg (44-48); BLOOD GAS VENOUS PO2 27 mmHg (35-40); BLOOD GAS VENOUS pH 7.39 (7.360-7.400); TEMP CORR TO 98.6
[2016-09-26 21:13] LABS: CRITICAL VALUE YES; DRAW SITE LT ARM; FIO2 21 %; OXYGEN DEVICE ROOM AIR; STAT YES
[2016-09-26 21:26] LABS: POTASSIUM 3.4 MEQ/L (3.5-5.1)
[2016-09-26 21:29] LABS: BICARBONATE 29.6 MEQ/L (21.0-32.0)
[2016-09-26 21:35] LABS: AUTOMATED NEUTROPHIL # 15.6 TH/MM3 (1.8-7.7); BASOPHIL # 0.3 TH/MM3 (0-0.2); BASOPHIL % 1.7 % (0.0-2.0); EOSINOPHIL # 0.5 TH/MM3 (0-0.4); EOSINOPHIL % 2.5 % (0.0-4.0); HEMATOCRIT 46.4 % (39.0-51.0); LYMPH % 8.5 % (9.0-44.0); LYMPHOCYTE # 1.6 TH/MM3 (1.0-4.8); MEAN CELL VOLUME 90.6 FL (80.0-100.0); MEAN CORPUSCULAR HEMOGLOBIN 30.2 PG (27.0-34.0); MEAN CORPUSCULAR HGB CONC 33.3 % (32.0-36.0); MONO % 4.3 % (0.0-8.0); PLATELET COUNT 147 TH/MM3 (150-450); RED BLOOD COUNT 5.12 MIL/MM3 (4.50-5.90); RED CELL DISTRIBUTION WIDTH 13.4 % (11.6-17.2); WHITE BLOOD COUNT 18.8 TH/MM3 (4.0-11.0)
[2016-09-26 21:47] LABS: HEMO FLAGS AUTO DIFF
[2016-09-26 22:14] LABS: PLATELET ESTIMATE SMEAR NORMAL (NORMAL); PLATELET MORPHOLOGY NORMAL (NORMAL); SCAN/DIFF AUTO DIFF CONFIRMED
[2016-09-26] MEDS ORDERED: AMPICILLIN-SULBACTAM INJ 3 GM in SODIUM CHLORIDE 0.9% INJ 100 ML IV ONE (23:00)
[2016-09-26] MEDS: MAGNESIUM SULFATE 1 GM PREMIX 100 ML IV SCH (23:16)
[2016-09-26] MEDS ORDERED: LEVOFLOXACIN 750 MG PREMIX INJ 150 ML IV ONE (23:30)
[2016-09-27] VITALS (10 sets, daily range): BP systolic 107–142; BP diastolic 57–78; PULSE 113–131; RESP 18–29; TEMP 96.2–98; O2SAT 92–96
[2016-09-27] MEDS: ENOXAPARIN SODIUM 40 MG/0.4 ML SYRINGE SQ SCH (00:42)
[2016-09-27] MEDS: RESP: ALBUTEROL 2.5 MG/3 ML NEB (PRN) NEB ×2 (01:54→05:24)
[2016-09-27] MEDS: RESP: IPRATROPIUM 0.5 MG/2.5 ML NEB NEB SCH ×6 (03:50→23:45)
[2016-09-27] MEDS: RESP: ALBUTEROL 2.5 MG/3 ML NEB (SCH) NEB ×6 (03:50→23:46)
[2016-09-27] MEDS: SODIUM CHLORIDE 0.9% FLUSH 5 ML FLUSH IV PRN ×2 (05:27→17:13)
[2016-09-27] MEDS ORDERED: methylPREDNISolone SOD SUCC 125 MG/2 ML VIAL IV ONE (05:30)
[2016-09-27 06:12] LABS: HEMATOCRIT 45.3 % (39.0-51.0); MEAN CELL VOLUME 89.1 FL (80.0-100.0); MEAN CORPUSCULAR HEMOGLOBIN 30.1 PG (27.0-34.0); MEAN CORPUSCULAR HGB CONC 33.8 % (32.0-36.0); PLATELET COUNT 241 TH/MM3 (150-450); RED BLOOD COUNT 5.08 MIL/MM3 (4.50-5.90); RED CELL DISTRIBUTION WIDTH 13.1 % (11.6-17.2); REVIEW FLAG FINAL; WHITE BLOOD COUNT 17.8 TH/MM3 (4.0-11.0)
[2016-09-27] MEDS ORDERED: predniSONE 20 MG TAB PO SCH (09:00)
[2016-09-27] MEDS ORDERED: POTASSIUM CHLORIDE 20 MEQ CONTROLLED RELEASE TAB PO ONE (09:45)
[2016-09-27] MEDS: SODIUM CHLORIDE 0.9% FLUSH 5 ML FLUSH IV SCH ×2 (09:55→21:49)
--- NOTE | 2016-09-27 11:05 | MH ---
cc: CHALO ALEXIS MD DATE OF ADMISSION 09/26/2016 CHIEF COMPLAINT Cough, shortness of breath HISTORY OF PRESENT ILLNESS This is a 21-year-old male with a past medical-surgical history significant for asthma. He had a concussion in the past and a smoker of a half pack a day for many years who came to the ER at [facility] complaining of shortness of breath. The patient stated that he has a history of asthma and has been trying his inhaler and nebulizer at home without relief. He is getting more and more short of breath and he said that he got short of breath to the extent that he decided to come to the [facility] ER. He denies any chest pain. Denies any fever or chills and denies any nausea or vomiting, diarrhea, or constipation. He has some yellow phlegm and has difficulty breathing, other than that, nothing significant. PAST MEDICAL HISTORY As dictated above. PAST SURGICAL HISTORY Nothing significant. SOCIAL HISTORY Denies drinking. Smoked a half-pack a day for many years and abuses drugs off and on. He is not . 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 FAMILY HISTORY Significant for diabetes mellitus and asthma. ALLERGIES TO MEDICATIONS Include and DEXTROMETHORPAN. MEDICATIONS Include: 1. Albuterol nebulizations 2.5 q. 4-hour 2. Ipratropium bromide 0.5/2.5 mL q. 4-hour REVIEW OF SYSTEMS Positive for mild shortness of breath, cough and yellow phlegm, all other review of systems are negative. PHYSICAL EXAMINATION This is a 21-year-old male laying on the bed not in acute distress. VITAL SIGNS: Temperature 96.4, heart rate 118, respiration 20, blood pressure 133/72, O2 saturation 95% on two liters nasal cannula. HEENT: Normocephalic, atraumatic. EOMI. PERRL. Oral mucosa moist. NECK: Supple. No visible thyromegaly or neck mass. Trachea is central. CARDIOVASCULAR: Regular rate and rhythm. RESPIRATORY: Bilateral mild crackles and wheezing, decreased air entry bilaterally. ABDOMEN: Soft and nontender. Bowel sounds audible. EXTREMITIES: No cyanosis or clubbing. Full range of motion of all extremities. He is awake, alert and oriented x4. No focal deficits. SKIN: Warm and dry. PSYCH: The patient is cooperative, mood and affect is normal. LABORATORY DATA Include CBC is totally unremarkable except for WBC count was 18.8 now it is 17.8. BMP totally unremarkable except for potassium 3.4 low, glucose 116 high, GFR 83 low. ABGs done showed a pH of 7.39 with pCO2 47 with pO2 27 with bicarb 28. Chest x-ray was done which shows no acute disease. No significant changes have occurred. ASSESSMENT/PLAN 1. This is a 21-year male who came to the ER diagnosed with shortness of breath secondary to asthma exacerbation. The patient is on Levaquin 750 mg p.o. daily, Solu-Medrol 40 mg IV q6h, albuterol and Atrovent nebulization q4-hour. 2. History of asthma. Continue home medication. 3. DVT prophylaxis Lovenox 40 mg subcutaneous daily. 4. GI prophylaxis Protonix 40 mg p.o. daily. 5. We are going to manage the patient on a daily basis and make recommendations on a daily basis. Chalo Alexis MD EA/OLIVIA /10:49 AM /10:58 AM
[2016-09-27] MEDS: methylPREDNISolone SOD SUCC 40 MG/1 ML VIAL IV SCH ×2 (12:32→17:12)
[2016-09-27] MEDS: LEVOFLOXACIN 750 MG TAB PO SCH (21:48)
[2016-09-28] VITALS (8 sets, daily range): BP systolic 107–143; BP diastolic 60–76; PULSE 99–123; RESP 19–20; TEMP 97.1–97.4; O2SAT 91–97
[2016-09-28] MEDS: methylPREDNISolone SOD SUCC 40 MG/1 ML VIAL IV SCH ×3 (00:15→11:12)
[2016-09-28] MEDS: SODIUM CHLORIDE 0.9% FLUSH 5 ML FLUSH IV PRN ×2 (00:15→05:00)
[2016-09-28] MEDS: ENOXAPARIN SODIUM 40 MG/0.4 ML SYRINGE SQ SCH (00:15)
[2016-09-28] MEDS: RESP: ALBUTEROL 2.5 MG/3 ML NEB (SCH) NEB ×6 (04:12→23:04)
[2016-09-28] MEDS: RESP: IPRATROPIUM 0.5 MG/2.5 ML NEB NEB SCH ×6 (04:12→23:04)
[2016-09-28 07:34] LABS: BASOPHIL # 0.1 TH/MM3 (0-0.2); BASOPHIL % 0.3 % (0.0-2.0); EOSINOPHIL # 0.3 TH/MM3 (0-0.4); EOSINOPHIL % 0.9 % (0.0-4.0); HEMATOCRIT 41.4 % (39.0-51.0); LYMPH % 3.2 % (9.0-44.0); LYMPHOCYTE # 0.9 TH/MM3 (1.0-4.8); MEAN CELL VOLUME 91.7 FL (80.0-100.0); MEAN CORPUSCULAR HEMOGLOBIN 31.3 PG (27.0-34.0); MEAN CORPUSCULAR HGB CONC 34.1 % (32.0-36.0); MONO % 2.7 % (0.0-8.0); NEUT % 92.9 % (16.0-70.0); PLATELET COUNT 231 TH/MM3 (150-450); RED BLOOD COUNT 4.51 MIL/MM3 (4.50-5.90); RED CELL DISTRIBUTION WIDTH 13.7 % (11.6-17.2); WHITE BLOOD COUNT 28.1 TH/MM3 (4.0-11.0)
[2016-09-28 07:36] LABS: HEMO FLAGS DIFF FINAL
[2016-09-28 08:08] LABS: ALKALINE PHOSPHATASE 48 U/L (45-117); ALT (GPT) 29 U/L (12-78); ANION GAP 10 MEQ/L (5-15); AST (GOT) 6 U/L (15-37); BICARBONATE 26.3 MEQ/L (21.0-32.0); BLOOD UREA NITROGEN 21 MG/DL (7-18); CHLORIDE 105 MEQ/L (98-107); GLOMERULAR FILTRATION RATE 75 ML/MIN (>89); POTASSIUM 4.7 MEQ/L (3.5-5.1); SODIUM (NA) 141 MEQ/L (136-145); TOTAL BILIRUBIN ADULT 0.5 MG/DL (0.2-1.0)
--- NOTE | 2016-09-28 08:19 | HHI.PR ---
Subjective History of Present Illness Patient feel better no acute d/w family at bed side. Review of Systems Constitutional Constitutional: Fatigue, Weakness Pulmonary Respiratory: Coughing Vitals/Results Intake & Output 09/27/16 09/27/16 09/28/16 15:00 23:00 07:00 Intake Total 780 ml 0 ml 0 ml Balance 780 ml 0 ml 0 ml Intake Oral 780 ml IV Total 0 ml 0 ml # Voids 2 2 # Bowel Movements 2 Vital Signs Vital Signs Date Time Temp Pulse Resp B/P Pulse Ox O2 Delivery O2 Flow Rate FiO2 09/28/16 07:45 97 Nasal Cannula 2.00 09/28/16 04:00 97.2 106 20 107/60 95 09/28/16 00:00 97.4 121 20 130/73 95 09/27/16 20:00 96.4 119 20 135/65 95 09/27/16 19:45 95 Nasal Cannula 2.00 09/27/16 16:00 96.6 131 20 107/66 93 09/27/16 12:00 96.2 119 20 110/57 93 09/27/16 08:53 95 Nasal Cannula 2.00 CBC/BMP: 09/28/16 0715 09/28/16 0715 Lab Results Laboratory Tests Test 09/28/16 07:15 White Blood Count 28.1 TH/MM3 Red Blood Count 4.51 MIL/MM3 Hemoglobin 14.1 GM/DL Hematocrit 41.4 % Mean Corpuscular Volume 91.7 FL Mean Corpuscular Hemoglobin 31.3 PG Mean Corpuscular Hemoglobin 34.1 % Concent Red Cell Distribution Width 13.7 % Platelet Count 231 TH/MM3 Mean Platelet Volume 8.3 FL Neutrophils (%) (Auto) 92.9 % Lymphocytes (%) (Auto) 3.2 % Monocytes (%) (Auto) 2.7 % Eosinophils (%) (Auto) 0.9 % Basophils (%) (Auto) 0.3 % Neutrophils # (Auto) 26.0 TH/MM3 Lymphocytes # (Auto) 0.9 TH/MM3 Monocytes # (Auto) 0.8 TH/MM3 Eosinophils # (Auto) 0.3 TH/MM3 Basophils # (Auto) 0.1 TH/MM3 CBC Comment DIFF FINAL Differential Comment Sodium Level 141 MEQ/L Potassium Level 4.7 MEQ/L Chloride Level 105 MEQ/L Carbon Dioxide Level 26.3 MEQ/L Anion Gap 10 MEQ/L Blood Urea Nitrogen 21 MG/DL Creatinine 1.20 MG/DL Estimat Glomerular Filtration 75 ML/MIN Rate Random Glucose 145 MG/DL Calcium Level 9.8 MG/DL Total Bilirubin 0.5 MG/DL Aspartate Amino Transf 6 U/L (AST/SGOT) Alanine Aminotransferase 29 U/L (ALT/SGPT) Alkaline Phosphatase 48 U/L Total Protein 6.6 GM/DL Albumin 3.4 GM/DL Physical Exam General General Appearance: Well Developed, Well Nourished, No Acute Distress, Comfortable Eyes Eye Exam: Pupils Equal, Pupils Reactive, Sclera White, Extraocular Movement Intact Throat Throat Exam: Oral Mucosa [place] & Moist, Oral Pharynx Normal Neck Neck Exam: Neck Supple, Trachea Midline Pulmonary Resp Exam: Clear Bilaterally, Breath Sounds Equal, No Distress Cardiology CV Exam: Regular, Normal Sinus Rhythm Gastrointestinal/Abdomen GI Exam: Soft, Non-Tender, Bowel Sounds Present Musculoskeletal MS Exam: Joints Intact, Normal Tone Integumentary Skin Exam: Clear, Warm, Dry, Intact, Normal Turgor Extremeties Extremities Exam: No Edema Neurologic Neuro Exam: Alert, Awake, Oriented, Speech Clear, Moving All Extremities, No Focal Deficits Psychiatric Psych Exam: Appropriate Responses PUD Prophylasis PUD Prophylaxis: Protonix Assessment/Plan Assessment/Plan ASSESSMENT/PLAN 1. This is a 21-year male who came to the ER diagnosed with shortness of breath secondary to asthma exacerbation. The patient is on Levaquin 750 mg p.o. daily, Solu-Medrol 40 mg IV q6h, albuterol and Atrovent nebulization q4-hour. 2. History of asthma. Continue home medication. 3. DVT prophylaxis Lovenox 40 mg subcutaneous daily. 4. GI prophylaxis Protonix 40 mg p.o. daily. We are going to manage the patient on a daily basis and make recommendations on a daily basis. Discussed Condition with: Patient Chalo Kelly MD Sep 28, 2016 08:19
[2016-09-28] MEDS: SODIUM CHLORIDE 0.9% FLUSH 5 ML FLUSH IV SCH ×2 (11:12→21:52)
[2016-09-28] MEDS: BENZONATATE 100 MG CAP PO SCH ×2 (13:15→16:45)
[2016-09-28] MEDS: predniSONE 20 MG TAB PO SCH (16:00)
[2016-09-28] MEDS: LEVOFLOXACIN 750 MG TAB PO SCH (21:51)
[2016-09-29] VITALS: BP 133/70; PULSE 101; RESP 20; TEMP 96.8; O2SAT 93
[2016-09-29] MEDS: ENOXAPARIN SODIUM 40 MG/0.4 ML SYRINGE SQ SCH (00:18)
[2016-09-29] MEDS: RESP: ALBUTEROL 2.5 MG/3 ML NEB (SCH) NEB ×2 (03:09→07:34)
[2016-09-29] MEDS: RESP: IPRATROPIUM 0.5 MG/2.5 ML NEB NEB SCH ×2 (03:09→07:34)
[2016-09-29 05:51] LABS: BASOPHIL % 0.1 % (0.0-2.0); EOSINOPHIL % 0.1 % (0.0-4.0); HEMATOCRIT 38.1 % (39.0-51.0); HEMO FLAGS DIFF FINAL; LYMPH % 9.1 % (9.0-44.0); LYMPHOCYTE # 1.8 TH/MM3 (1.0-4.8); MEAN CELL VOLUME 89.7 FL (80.0-100.0); MEAN CORPUSCULAR HEMOGLOBIN 31.6 PG (27.0-34.0); MEAN CORPUSCULAR HGB CONC 35.2 % (32.0-36.0); MONO % 5.8 % (0.0-8.0); NEUT % 84.9 % (16.0-70.0); PLATELET COUNT 216 TH/MM3 (150-450); RED BLOOD COUNT 4.25 MIL/MM3 (4.50-5.90); RED CELL DISTRIBUTION WIDTH 13.3 % (11.6-17.2)
[2016-09-29 06:06] LABS: CHLORIDE 105 MEQ/L (98-107); POTASSIUM 4.3 MEQ/L (3.5-5.1); SODIUM (NA) 142 MEQ/L (136-145)
[2016-09-29 06:11] LABS: ANION GAP 9 MEQ/L (5-15); BICARBONATE 28.5 MEQ/L (21.0-32.0); BLOOD UREA NITROGEN 22 MG/DL (7-18)
[2016-09-29 06:14] LABS: ALT (GPT) 25 U/L (12-78); AST (GOT) 4 U/L (15-37); GLOMERULAR FILTRATION RATE 75 ML/MIN (>89)
[2016-09-29 06:16] LABS: TOTAL BILIRUBIN ADULT 0.4 MG/DL (0.2-1.0)
[2016-09-29 06:17] LABS: ALKALINE PHOSPHATASE 44 U/L (45-117)
[2016-09-29 07:30] VITALS: O2SAT 94
--- NOTE | 2016-09-29 08:18 | HHI.PR ---
Subjective History of Present Illness Patient feel better no acute d/w mother at bed side. wants to go home today ..ok to DC Home today Review of Systems Constitutional Constitutional: Fatigue, Weakness Pulmonary Respiratory: Coughing Vitals/Results Intake & Output 09/28/16 09/28/16 09/29/16 15:00 23:00 07:00 Intake Total 440 ml 240 ml 480 ml Balance 440 ml 240 ml 480 ml Intake Oral 440 ml 240 ml 480 ml # Voids 2 3 # Bowel Movements 0 0 Vital Signs Vital Signs Date Time Temp Pulse Resp B/P Pulse Ox O2 Delivery O2 Flow Rate FiO2 09/29/16 07:30 94 21 09/29/16 00:00 96.8 101 20 133/70 93 09/28/16 20:05 92 21 09/28/16 20:00 97.1 109 19 138/71 92 09/28/16 16:00 97.1 108 20 143/76 92 09/28/16 12:00 97.3 99 20 115/69 94 CBC/BMP: 09/29/16 0513 09/29/16 0513 Lab Results Laboratory Tests Test 09/29/16 05:13 White Blood Count 20.0 TH/MM3 Red Blood Count 4.25 MIL/MM3 Hemoglobin 13.4 GM/DL Hematocrit 38.1 % Mean Corpuscular Volume 89.7 FL Mean Corpuscular Hemoglobin 31.6 PG Mean Corpuscular Hemoglobin 35.2 % Concent Red Cell Distribution Width 13.3 % Platelet Count 216 TH/MM3 Mean Platelet Volume 8.2 FL Neutrophils (%) (Auto) 84.9 % Lymphocytes (%) (Auto) 9.1 % Monocytes (%) (Auto) 5.8 % Eosinophils (%) (Auto) 0.1 % Basophils (%) (Auto) 0.1 % Neutrophils # (Auto) 17.0 TH/MM3 Lymphocytes # (Auto) 1.8 TH/MM3 Monocytes # (Auto) 1.2 TH/MM3 Eosinophils # (Auto) 0.0 TH/MM3 Basophils # (Auto) 0.0 TH/MM3 CBC Comment DIFF FINAL Differential Comment Sodium Level 142 MEQ/L Potassium Level 4.3 MEQ/L Chloride Level 105 MEQ/L Carbon Dioxide Level 28.5 MEQ/L Anion Gap 9 MEQ/L Blood Urea Nitrogen 22 MG/DL Creatinine 1.20 MG/DL Estimat Glomerular Filtration 75 ML/MIN Rate Random Glucose 111 MG/DL Calcium Level 9.8 MG/DL Total Bilirubin 0.4 MG/DL Aspartate Amino Transf 4 U/L (AST/SGOT) Alanine Aminotransferase 25 U/L (ALT/SGPT) Alkaline Phosphatase 44 U/L Total Protein 6.3 GM/DL Albumin 3.2 GM/DL Physical Exam General General Appearance: Well Developed, Well Nourished, No Acute Distress, Comfortable Eyes Eye Exam: Pupils Equal, Pupils Reactive, Sclera White, Extraocular Movement Intact Throat Throat Exam: Oral Mucosa [place] & Moist, Oral Pharynx Normal Neck Neck Exam: Neck Supple, Trachea Midline Pulmonary Resp Exam: Clear Bilaterally, Breath Sounds Equal, No Distress Cardiology CV Exam: Regular, Normal Sinus Rhythm Gastrointestinal/Abdomen GI Exam: Soft, Non-Tender, Bowel Sounds Present Musculoskeletal MS Exam: Joints Intact, Normal Tone Integumentary Skin Exam: Clear, Warm, Dry, Intact, Normal Turgor Extremeties Extremities Exam: No Edema Neurologic Neuro Exam: Alert, Awake, Oriented, Speech Clear, Moving All Extremities, No Focal Deficits Psychiatric Psych Exam: Appropriate Responses PUD Prophylasis PUD Prophylaxis: Protonix Assessment/Plan Assessment/Plan ASSESSMENT/PLAN 1. This is a 21-year male who came to the ER diagnosed with shortness of breath secondary to asthma exacerbation. The patient is on Levaquin 750 mg p.o. daily, Prednisone 20 mg PO Daily. albuterol and Atrovent nebulization q4-hour. 2. History of asthma. Continue home medication. 3. DVT prophylaxis Lovenox 40 mg subcutaneous daily. 4. GI prophylaxis Protonix 40 mg p.o. daily. wants to go home today ..Ok to DC Home today f/u with pcp 1 week. Discussed Condition with: Patient Chalo Kelly MD Sep 29, 2016 08:18
[2016-09-29] MEDS ORDERED: LEVA750T PO (08:37)
[2016-09-29] MEDS ORDERED: BENZ100 PO (08:37)
[2016-09-29] MEDS ORDERED: PRED20 PO (08:37)
[2016-09-29] MEDS: BENZONATATE 100 MG CAP PO SCH (08:46)
[2016-09-29] MEDS: SODIUM CHLORIDE 0.9% FLUSH 5 ML FLUSH IV SCH (08:46)
[2016-09-29] MEDS: predniSONE 20 MG TAB PO SCH (08:46)
[2016-09-29] MEDS ORDERED: IPRASOL INH (10:19)
--- NOTE | 2016-10-05 08:23 | MD ---
cc: CHALO ALEXIS MD ADMISSION DATE: 09/26/2016 DISCHARGE DATE: 09/29/2016 DISPOSITION Okay to discharge the patient. CONDITION AT THE TIME OF DISCHARGE Satisfactory. ACTIVITY As tolerated. DIET Cardiac diet. ALLERGIES DEXTROMETHORPHAN. DISCHARGE MEDICATIONS 1. Tessalon Perles 100 mg p.o. t.i.d. 2. DuoNeb nebulization q.4 hours p.r.n. shortness of breath, cough, wheezing. 3. Levaquin 750 mg p.o. daily for 10 days. 4. Prednisone 20 mg p.o. daily for 5 days. 5. Continue with albuterol and ipratropium nebulization. FOLLOWUP The patient was advised to follow up with PCP in one week. ADMITTING DIAGNOSIS Shortness of breath secondary to asthmatic exacerbation. DISCHARGE DIAGNOSIS Asthma exacerbation, improved. HOSPITAL COURSE This is a 21-year male admitted with shortness of breath, diagnosed with asthma exacerbation. He was given DuoNeb nebulization and Solu-Medrol 40 mg IV q. 6 hours and also albuterol and Atrovent nebulization q. 4 hours. The patient remained stable. The patient had leukocytosis during the hospital stay. The patient discharged in satisfactory condition. The patient's chest x-ray was done, shows nothing acute and no significant change has occurred. The patient remained stable during the hospital stay. The patient had leukocytosis to start with which increased and then eventually decreased. The patient had mild hypokalemia. The patient had albumin of 3.2 which is low. Total protein was 6.3 - low, alkaline phosphatase 44 - low. The patient had a glucose of 111. Further details in the medical record. Chalo Alexis MD EA/BENITEZ /10:27 AM /8:16 AM
== END 2016-09-29 10:23 | disposition home or self-care (01) ==
LOC: PHED 19:21 → UNDOADMIN 23:33 → PHEDA 23:33 → INTOOBSV 23:34 → PHEDA 23:34 → PH3A 09-27 01:11
PROVIDERS: ADMIT Specialist; ATTEND Specialist
DX: J45.901 Unspecified asthma with (acute) exacerbation (principal); D72.829 Elevated white blood cell count, unspecified; F17.200 Nicotine dependence, unspecified, uncomplicated; Z88.8 Allergy status to other drugs, medicaments and biological substances; Z79.51 Long term (current) use of inhaled steroids
CPT/HCPCS: 71010; 80048; 80053; 82805; 85025; 85027; 94640; 94664; 94799; 96365; 96366; G0378; J1650; J1956; J2920; J2930; J3475; J7512; J7613; J7644

== ENCOUNTER 2016-10-29 06:37 | Emergency (ER) | payer SELFPAY ==
[~2016-10-29] VITALS: Ht 185.4 cm; Wt 113.0 kg
[~2016-10-29 06:37] MED LIST changes: +BENZ100 PO; +IPRASOL INH; +LEVA750T PO; -PRED-503 PO; +PRED20 PO
[2016-10-29 06:49] VITALS: BP 153/74; PULSE 113; RESP 22; TEMP 98.4; O2SAT 94
[2016-10-29] MEDS: RESP: ALBUTEROL 2.5 MG/IPRATROPIUM 0.5 MG NEB (SCH) INH ×2 (06:55→06:56)
[2016-10-29] MEDS ORDERED: SODIUM CHLORIDE 0.9% FLUSH 10 ML FLUSH IVF PRN (07:00)
[2016-10-29] MEDS ORDERED: SODIUM CHLOR 0.9% 1000 ML INJ 1,000 ML IV SCH (07:00)
[2016-10-29] MEDS ORDERED: methylPREDNISolone SOD SUCC 125 MG/2 ML VIAL IVP ONE (07:00)
[2016-10-29 07:01] VITALS: BP 130/82; PULSE 115; RESP 22; O2SAT 94
--- NOTE | 2016-10-29 07:02 | RADHPO ---
EXAM DATE/TIME: 10/29/2016 06:53 [facility] COMPARISON: CHEST SINGLE AP, September 26, 2016, 20:47. INDICATIONS : Shortness of breath. MEDICAL HISTORY : None. SURGICAL HISTORY : ORIF right clavicle ENCOUNTER: Initial ACUITY: 1 day PAIN SCORE: 0/10 LOCATION: Bilateral chest FINDINGS: A single view of the chest demonstrates the lungs to be symmetrically aerated without evidence of mas s, infiltrate or effusion. The cardiomediastinal contours are unremarkable. There is a surgical plat e at the right clavicle. CONCLUSION: No acute disease. Jacob Rodriguez MD on October 29, 2016 at 6:59 Board Certified Radiologist. This report was verified electronically.
[2016-10-29] MEDS ORDERED: ALBU6.7H INH (07:04)
[2016-10-29] MEDS ORDERED: FLUT1INH INH ×2 (07:04→08:50)
--- NOTE | 2016-10-29 07:05 | PD ---
HPI Chief Complaint: Respiratory Distress Time Seen by Provider: 06:46 Travel History International Travel<30 days: No Contact w/Intl Traveler<30days: No Traveled to known affect area: No History of Present Illness HPI 21-year-old male presents to the emergency department by private transportation for one day of shortness of breath. Patient has history of asthma. Patient was hospitalized 1 month ago for exacerbation of asthma. Patient denies fever chills productive cough sore throat sinus pressure drainage chest pain nausea vomiting abdominal pain flank pain skin rash joint pain or swelling. Patient is a nonsmoker. Patient is on able to identify exacerbating factors. Patient denies environmental allergens or seasonal allergens. PFSH Past Medical History Narrative Medical Asthma; no tobacco use; nursing notes reviewed Asthma: Yes Autoimmune Disease: No Blood Disorders: No Anxiety: No Depression: No Cancer: No Cardiovascular Problems: No Cerebrovascular Accident: No Diabetes: No Diminished Hearing: No Endocrine: No Gastrointestinal Disorders: Yes (per patient "they can't figure out what's wrong" N,V.) Genitourinary: No Immune Disorder: No Musculoskeletal: No Neurologic: Yes Psychiatric: No Reproductive: No Respiratory: Yes Migraines: No Seizures: No Thyroid Disease: No Past Surgical History Abdominal Surgery: No Cardiac Surgery: No Ear Surgery: No Endocrine Surgery: No Eye Surgery: No Genitourinary Surgery: No Oral Surgery: No Thoracic Surgery: No Other Surgery: No Social History Alcohol Use: No Tobacco Use: Yes (2PPD) Substance Use: Yes (MARIJUANA 07/2016) Allergies-Medications (Allergen,Severity, Reaction): Coded Allergies: Dextromethorphan (Verified Allergy, Intermediate, HIVES, 10/29/16) Reported Meds & Prescriptions Reported Meds & Active Scripts Active Albuterol Neb (Albuterol Sulfate) 2.5 Mg/3 Ml Neb 2.5 Mg NEB Q4HR NEB While awake Ipratropium Neb (Ipratropium [place]) 0.5 Mg/2.5 Ml Amp 0.5 Mg NEB Q4HR NEB Reported Breo Ellipta Inh (Fluticasone/Vilanterol) 100-25 Mcg/Act Inh 1 Puff INH DAILY Use daily at the same time. Proventil Hfa 6.7 GM Inh (Albuterol Sulfate) 90 Mcg/Act Aer 2 Puff INH Q4-6H PRN Review of Systems Except as stated in HPI: all other systems reviewed are Neg General / Constitutional: No: Fever, Chills HENT: No: Congestion Cardiovascular: No: Chest Pain or Discomfort Respiratory: Positive: Shortness of Breath, Wheezing Genitourinary: No: Flank Pain Musculoskeletal: No: Pain Skin: No Rash Neurologic: No: Weakness Psychiatric: No: Anxiety Endocrine: No: Heat Intolerance Hematologic/Lymphatic: No: Easy Bruising Physical Exam Narrative GENERAL: Well-developed well-nourished male with mild work of breathing SKIN: Warm and dry. HEAD: Normocephalic. EYES: No scleral icterus. No injection or drainage. NECK: Supple, trachea midline. No JVD or lymphadenopathy. CARDIOVASCULAR: Regular rate and rhythm without murmurs, gallops, or rubs. RESPIRATORY: Breath sounds equal bilaterally markedly diminished breath sounds with expiratory wheeze. No accessory muscle use. GASTROINTESTINAL: Abdomen soft, non-tender, nondistended. MUSCULOSKELETAL: No cyanosis, or edema. BACK: Nontender without obvious deformity. No CVA tenderness. Data Data Last Documented VS Vital Signs Date Time Temp Pulse Resp B/P Pulse Ox O2 Delivery O2 Flow Rate FiO2 10/29/16 07:02 94 Room Air 10/29/16 07:01 115 22 130/82 10/29/16 06:49 98.4 Orders Complete Blood Count With Diff (10/29/16 06:46) Basic Metabolic Panel (Bmp) (10/29/16 06:46) Magnesium (Mg) (10/29/16 06:46) Iv Access Insert/Monitor (10/29/16 06:46) Ecg Monitoring (10/29/16 06:46) Oximetry (10/29/16 06:46) Oxygen Administration (10/29/16 06:46) Chest, Single Ap (10/29/16 06:46) Sodium Chloride 0.9% Flush (Ns Flush) (10/29/16 07:00) Methylprednisolone So Succ Inj (Solumedr (10/29/16 07:00) Albuterol-Ipratropium Neb (Duoneb Neb) (10/29/16 07:00) Sodium Chlor 0.9% 1000 Ml Inj (Ns 1000 M (10/29/16 07:00) Magnesium Sulfate 1 Gm Premix (Magnesium (10/29/16 07:15) MDM Medical Decision Making Medical Screen Exam Complete: Yes Emergency Medical Condition: Yes Medical Record Reviewed: Yes Differential Diagnosis Exacerbation asthma, bronchitis, pneumonia, PE, pneumothorax Narrative Course Patient placed on secured entrance monitor IV access obtained Mirlande cabral ordered along with Solu-Medrol Care signed over to oncoming physician at 7:10 AM eJnna Messer MD Oct 29, 2016 07:05
[2016-10-29 07:09] VITALS: BP 134/80; PULSE 115; RESP 24; TEMP 98.4; O2SAT 94
[2016-10-29 07:09] LABS: AUTOMATED NEUTROPHIL # 3.1 TH/MM3 (1.8-7.7); BASOPHIL # 0.1 TH/MM3 (0-0.2); BASOPHIL % 1.2 % (0.0-2.0); EOSINOPHIL # 0.9 TH/MM3 (0-0.4); EOSINOPHIL % 11.4 % (0.0-4.0); HEMO FLAGS DIFF FINAL; LYMPH % 40.3 % (9.0-44.0); MEAN CORPUSCULAR HGB CONC 34.4 % (32.0-36.0); MONO % 6.6 % (0.0-8.0); NEUT % 40.5 % (16.0-70.0); PLATELET COUNT 213 TH/MM3 (150-450); RED BLOOD COUNT 4.67 MIL/MM3 (4.50-5.90); RED CELL DISTRIBUTION WIDTH 12.7 % (11.6-17.2); WHITE BLOOD COUNT 7.6 TH/MM3 (4.0-11.0)
[2016-10-29] MEDS ORDERED: MAGNESIUM SULFATE 1 GM PREMIX 100 ML IV ONE (07:15)
[2016-10-29 07:18] LABS: POTASSIUM 3.3 MEQ/L (3.5-5.1)
[2016-10-29 07:21] LABS: BICARBONATE 30.9 MEQ/L (21.0-32.0); MAGNESIUM 1.9 MG/DL (1.5-2.5)
--- NOTE | 2016-10-29 07:41 | PD ---
Physical Exam Date Seen by Provider: Oct 29, 2016 Data Data Last Documented VS Vital Signs Date Time Temp Pulse Resp B/P Pulse Ox O2 Delivery O2 Flow Rate FiO2 10/29/16 08:15 98.4 100 22 131/71 94 Room Air Orders Complete Blood Count With Diff (10/29/16 06:46) Basic Metabolic Panel (Bmp) (10/29/16 06:46) Magnesium (Mg) (10/29/16 06:46) Iv Access Insert/Monitor (10/29/16 06:46) Ecg Monitoring (10/29/16 06:46) Oximetry (10/29/16 06:46) Oxygen Administration (10/29/16 06:46) Chest, Single Ap (10/29/16 06:46) Sodium Chloride 0.9% Flush (Ns Flush) (10/29/16 07:00) Methylprednisolone So Succ Inj (Solumedr (10/29/16 07:00) Albuterol-Ipratropium Neb (Duoneb Neb) (10/29/16 07:00) Sodium Chlor 0.9% 1000 Ml Inj (Ns 1000 M (10/29/16 07:00) Magnesium Sulfate 1 Gm Premix (Magnesium (10/29/16 07:15) Labs Laboratory Tests Test 10/29/16 06:55 White Blood Count 7.6 TH/MM3 Red Blood Count 4.67 MIL/MM3 Hemoglobin 14.5 GM/DL Hematocrit 42.0 % Mean Corpuscular Volume 90.0 FL Mean Corpuscular Hemoglobin 31.0 PG Mean Corpuscular Hemoglobin 34.4 % Concent Red Cell Distribution Width 12.7 % Platelet Count 213 TH/MM3 Mean Platelet Volume 7.7 FL Neutrophils (%) (Auto) 40.5 % Lymphocytes (%) (Auto) 40.3 % Monocytes (%) (Auto) 6.6 % Eosinophils (%) (Auto) 11.4 % Basophils (%) (Auto) 1.2 % Neutrophils # (Auto) 3.1 TH/MM3 Lymphocytes # (Auto) 3.0 TH/MM3 Monocytes # (Auto) 0.5 TH/MM3 Eosinophils # (Auto) 0.9 TH/MM3 Basophils # (Auto) 0.1 TH/MM3 CBC Comment DIFF FINAL Differential Comment Sodium Level 144 MEQ/L Potassium Level 3.3 MEQ/L Chloride Level 107 MEQ/L Carbon Dioxide Level 30.9 MEQ/L Anion Gap 6 MEQ/L Blood Urea Nitrogen 7 MG/DL Creatinine 1.10 MG/DL Estimat Glomerular Filtration 83 ML/MIN Rate Random Glucose 132 MG/DL Calcium Level 9.3 MG/DL Magnesium Level 1.9 MG/DL [facility] Medical Record Reviewed: Yes Supervised Visit with ERICK: No Interpretation(s) Vital Signs Date Time Temp Pulse Resp B/P Pulse Ox O2 Delivery O2 Flow Rate FiO2 10/29/16 07:09 98.4 115 24 134/80 94 Room Air 10/29/16 07:02 94 Room Air 10/29/16 07:01 115 22 130/82 94 Room Air 10/29/16 06:51 122 22 94 Room Air 10/29/16 06:49 98.4 113 22 153/74 94 CBC & BMP Diagram 10/29/16 06:55 Last Impressions Chest X-Ray 10/29/16 0646 Signed Impressions: Service Date/Time: Monday, October 29, 2016 06:53 - CONCLUSION: No acute disease. Jacob Rodriguez MD Differential Diagnosis Pneumonia, asthma exacerbation, PE (though unlikely), pneumothorax Narrative Course Patient was signed out to me by Dr. Messer at change of shift. Patient is a 21-year-old male who is a known asthmatic, presents to emergency room with complaints of shortness of breath. Patient reports that he has had a history of asthma since he was a child, reports that he does not know what exacerbates his asthma. Patient reports that he woke up this morning feeling short of breath. Patient reports that he tried using to get treatments with no relief of symptoms. Patient is a nonsmoker, denies cough or congestion. Patient reports that he was hospitalized 1 month ago for asthma exacerbation. Patient currently receiving no treatment at this time. We'll give a dose of IV magnesium and reevaluate after treatments. Laboratory Tests Test 10/29/16 06:55 White Blood Count 7.6 TH/MM3 (4.0-11.0) Red Blood Count 4.67 MIL/MM3 (4.50-5.90) Hemoglobin 14.5 GM/DL (13.0-17.0) Hematocrit 42.0 % (39.0-51.0) Mean Corpuscular Volume 90.0 FL (80.0-100.0) Mean Corpuscular Hemoglobin 31.0 PG (27.0-34.0) Mean Corpuscular Hemoglobin 34.4 % Concent (32.0-36.0) Red Cell Distribution Width 12.7 % (11.6-17.2) Platelet Count 213 TH/MM3 (150-450) Mean Platelet Volume 7.7 FL (7.0-11.0) Neutrophils (%) (Auto) 40.5 % (16.0-70.0) Lymphocytes (%) (Auto) 40.3 % (9.0-44.0) Monocytes (%) (Auto) 6.6 % (0.0-8.0) Eosinophils (%) (Auto) 11.4 % (0.0-4.0) Basophils (%) (Auto) 1.2 % (0.0-2.0) Neutrophils # (Auto) 3.1 TH/MM3 (1.8-7.7) Lymphocytes # (Auto) 3.0 TH/MM3 (1.0-4.8) Monocytes # (Auto) 0.5 TH/MM3 (0-0.9) Eosinophils # (Auto) 0.9 TH/MM3 (0-0.4) Basophils # (Auto) 0.1 TH/MM3 (0-0.2) CBC Comment DIFF FINAL Differential Comment Sodium Level 144 MEQ/L (136-145) Potassium Level 3.3 MEQ/L (3.5-5.1) Chloride Level 107 MEQ/L (98-107) Carbon Dioxide Level 30.9 MEQ/L (21.0-32.0) Anion Gap 6 MEQ/L (5-15) Blood Urea Nitrogen 7 MG/DL (7-18) Creatinine 1.10 MG/DL (0.60-1.30) Estimat Glomerular Filtration 83 ML/MIN (>89) Rate Random Glucose 132 MG/DL (74-106) Calcium Level 9.3 MG/DL (8.5-10.1) Magnesium Level 1.9 MG/DL (1.5-2.5) Last Impressions Chest X-Ray 10/29/16 0646 Signed Impressions: Service Date/Time: Saturday, October 29, 2016 06:53 - CONCLUSION: No acute disease. Jacob Rodriguez MD Patient reevaluated, patient feeling much better at this time, lungs are clear to auscultation bilaterally. Reviewed all labs and all studies with patient detail. Plan to have patient follow up with primary care doctor, will have patient return to emergency room as needed. Diagnosis Primary Impression: Acute asthma exacerbation Qualified Code: J45.901 - Asthma with acute exacerbation, unspecified asthma severity Patient Instructions: General Instructions Additional Instruction: Please return to emergency room as needed Please follow up with your primary care doctor in 1-2 days Please take all medications as prescribed. Med/Other Pt SpecificInfo: Prescription(s) given Scripts Prednisone 20 Mg Tab20 Mg PO BID 5 Days Ref 0 Prov:Aspen Flores DO 10/29/16 Fluticasone-Vilanterol Inh (Breo Ellipta Inh)100-25 Mcg/Act Inh1 Puff INH DAILY #1 INHALER Ref 0 Use daily at the same time. Prov:Aspen Flores DO 10/29/16 Albuterol 8.5 GM Inh (Proair Hfa 8.5 GM Inh)90 Mcg/Act Aer2 Puff INH Q4-6H PRN ( SHORTNESS OF BREATH) #1 INHALER Ref 0 108 mcg/actuation Prov:Aspen Flores DO 10/29/16 Disposition: 01 DISCHARGE HOME Condition: Stable Aspen Flores DO Oct 29, 2016 07:41
[2016-10-29 08:15] VITALS: BP 131/71; PULSE 100; RESP 22; TEMP 98.4; O2SAT 94
[2016-10-29] MEDS ORDERED: ALBUAER3 INH (08:50)
[2016-10-29] MEDS ORDERED: PRED20 PO (08:50)
== END 2016-10-29 09:08 | disposition home or self-care (01) ==
LOC: PHED 06:37
DX: J45.901 Unspecified asthma with (acute) exacerbation (principal)
CPT/HCPCS: 71010; 80048; 83735; 85025; 94640; 94664; 96365; 96375; 99283; J2930; J3475; J7030

== ENCOUNTER 2017-03-27 19:30 | Observation (INO) | payer SELFPAY ==
[~2017-03-27] VITALS: Ht 182.9 cm; Wt 108.3 kg
[~2017-03-27 19:30] MED LIST changes: +ALBU6.7H INH; +ALBUAER3 INH; -BENZ100 PO; +FLUT1INH INH; -IPRASOL INH; -LEVA750T PO
[2017-03-27 19:48] VITALS: BP 142/76; PULSE 101; RESP 12; TEMP 97.6; O2SAT 97
[2017-03-27 19:51] VITALS: BP 142/76; PULSE 101; RESP 18; TEMP 97.6
[2017-03-27] MEDS ORDERED: SODIUM CHLOR 0.9% 1000 ML INJ 1,000 ML IV SCH (20:14)
[2017-03-27] MEDS ORDERED: SODIUM CHLORIDE 0.9% FLUSH 10 ML FLUSH IV FLUSH PRN ×2 (20:15→23:15)
[2017-03-27] MEDS ORDERED: ONDANSETRON HCL 4 MG/2 ML VIAL IVP ONE (20:15)
[2017-03-27] MEDS ORDERED: MORPHINE SULFATE 4 MG/ML INJ IV PUSH ONE ×2 (20:15→23:15)
--- NOTE | 2017-03-27 20:18 | PD ---
HPI Chief Complaint: Abdominal Pain Time Seen by Provider: 20:11 Travel History International Travel<30 days: No Contact w/Intl Traveler<30days: No Traveled to known affect area: No History of Present Illness HPI 22-year-old male here for evaluation of nausea, vomiting, abdominal pain. The patient reports that the symptoms have been going on for the last week. Abdominal pain is diffuse, moderate to severe, constant. He is unable to qualify the pain. Emesis is white, nonbloody. He reports a few episodes of loose bowel movements yesterday. Denies history of abdominal surgeries. Chart review shows that he was diagnosed with cannabinoid hyperemesis syndrome. He reports smoking marijuana week ago. PFSH Past Medical History Asthma: Yes Autoimmune Disease: No Blood Disorders: No Anxiety: No Depression: No Cancer: No Cardiovascular Problems: No Cerebrovascular Accident: No Diabetes: No Diminished Hearing: No Endocrine: No Gastrointestinal Disorders: Yes (per patient "they can't figure out what's wrong" N,V.) Genitourinary: No Immune Disorder: No Musculoskeletal: No Neurologic: Yes Psychiatric: No Reproductive: No Respiratory: Yes (Asthma) Immunizations Current: Yes Migraines: No Seizures: No Thyroid Disease: No Past Surgical History Abdominal Surgery: No Cardiac Surgery: No Ear Surgery: No Endocrine Surgery: No Eye Surgery: No Genitourinary Surgery: No Oral Surgery: No Thoracic Surgery: No Other Surgery: Yes Social History Alcohol Use: No Tobacco Use: No (QUIT) Substance Use: Yes (MARIJUANA 07/2016) Allergies-Medications (Allergen,Severity, Reaction): Coded Allergies: dextromethorphan (Verified Allergy, Intermediate, HIVES, 03/27/17) Reported Meds & Prescriptions Reported Meds & Active Scripts Active Prednisone 20 Mg Tab 20 Mg PO BID 5 Days Breo Ellipta Inh (Fluticasone/Vilanterol) 100-25 Mcg/Act Inh 1 Puff INH DAILY Use daily at the same time. Proair Hfa 8.5 GM Inh (Albuterol Sulfate) 90 Mcg/Act Aer 2 Puff INH Q4-6H PRN 108 mcg/actuation Albuterol Neb (Albuterol Sulfate) 2.5 Mg/3 Ml Neb 2.5 Mg NEB Q4HR NEB While awake Ipratropium Neb (Ipratropium Telephone) 0.5 Mg/2.5 Ml Amp 0.5 Mg NEB Q4HR NEB Reported Breo Ellipta Inh (Fluticasone/Vilanterol) 100-25 Mcg/Act Inh 1 Puff INH DAILY Use daily at the same time. Proventil Hfa 6.7 GM Inh (Albuterol Sulfate) 90 Mcg/Act Aer 2 Puff INH Q4-6H PRN Review of Systems Except as stated in HPI: all other systems reviewed are Neg Physical Exam Narrative GENERAL: Well-developed, well-nourished, comfortable, no apparent distress. SKIN: Focused skin assessment warm/dry. HEAD: Atraumatic. Normocephalic. EYES: Pupils equal and round. No scleral icterus. No injection or drainage. ENT: Mucous membranes pink and dry. NECK: Trachea midline. No JVD. CARDIOVASCULAR: Regular rate and rhythm. RESPIRATORY: No accessory muscle use. Clear to auscultation. Breath sounds equal bilaterally. GASTROINTESTINAL: Abdomen soft, nondistended. Mild diffuse tenderness. No peritoneal signs. MUSCULOSKELETAL: No obvious deformities. No clubbing. No cyanosis. No edema. NEUROLOGICAL: Awake and alert. No obvious cranial nerve deficits. Motor grossly within normal limits. Normal speech. PSYCHIATRIC: Appropriate mood and affect; insight and judgment normal. Data Data Last Documented VS Vital Signs Date Time Temp Pulse Resp B/P (MAP) Pulse Ox O2 Delivery O2 Flow Rate FiO2 03/27/17 22:00 118 18 139/72 (94) 99 Room Air 03/27/17 19:51 97.6 Orders Orders Complete Blood Count With Diff (03/27/17 20:14) Comprehensive Metabolic Panel (03/27/17 20:14) Lipase (03/27/17 20:14) Prothrombin Time / Inr (Pt) (03/27/17 20:14) Act Partial Throm Time (Ptt) (03/27/17 20:14) Urinalysis - C+S If Indicated (03/27/17 20:14) Ct Abd/Pel W Iv Contrast(Rout) (03/27/17 20:14) Iv Access Insert/Monitor (03/27/17 20:14) Ecg Monitoring (03/27/17 20:14) Oximetry (03/27/17 20:14) Morphine Inj (Morphine Inj) (03/27/17 20:15) Ondansetron Inj (Zofran Inj) (03/27/17 20:15) Sodium Chlor 0.9% 1000 Ml Inj (Ns 1000 M (03/27/17 20:14) Sodium Chloride 0.9% Flush (Ns Flush) (03/27/17 20:15) Potassium Chloride (Kcl) (03/27/17 22:15) Iohexol 350 Inj (Omnipaque 350 Inj) (03/27/17 22:38) Potassium Chlor 20 Meq Premix (Kcl 20 Me (03/27/17 23:15) Place In Observation (03/27/17 ) Vital Signs (Adult) Q4H (03/27/17 23:10) Activity Oob With Assistance (03/27/17 23:10) Marketing Admin / Telemetry .CONTINUOUS (03/27/17 23:10) Diet Heart Healthy (03/28/17 Breakfast) Sodium Chloride 0.9% Flush (Ns Flush) (03/27/17 23:15) Sodium Chloride 0.9% Flush (Ns Flush) (03/28/17 09:00) Ondansetron Inj (Zofran Inj) (03/27/17 23:15) Basic Metabolic Panel (Bmp) (03/28/17 06:00) Complete Blood Count With Diff (03/28/17 06:00) Naloxone Inj (Narcan Inj) (03/27/17 23:15) Basic Metabolic Panel (Bmp) (03/27/17 23:55) Magnesium (Mg) (03/27/17 23:55) ^ Other Nursing Orders (03/27/17 23:10) Admit Order (Ed Use Only) (03/27/17 23:12) Morphine Inj (Morphine Inj) (03/27/17 23:15) Labs Laboratory Tests Test 03/27/17 20:31 White Blood Count 12.3 TH/MM3 Red Blood Count 5.50 MIL/MM3 Hemoglobin 16.5 GM/DL Hematocrit 48.1 % Mean Corpuscular Volume 87.4 FL Mean Corpuscular Hemoglobin 30.0 PG Mean Corpuscular Hemoglobin Concent 34.3 % Red Cell Distribution Width 12.7 % Platelet Count 269 TH/MM3 Mean Platelet Volume 8.7 FL Neutrophils (%) (Auto) 72.6 % Lymphocytes (%) (Auto) 16.5 % Monocytes (%) (Auto) 9.6 % Eosinophils (%) (Auto) 0.8 % Basophils (%) (Auto) 0.5 % Neutrophils # (Auto) 8.9 TH/MM3 Lymphocytes # (Auto) 2.0 TH/MM3 Monocytes # (Auto) 1.2 TH/MM3 Eosinophils # (Auto) 0.1 TH/MM3 Basophils # (Auto) 0.1 TH/MM3 CBC Comment DIFF FINAL Differential Comment Prothrombin Time 11.4 SEC Prothromb Time International Ratio 1.0 RATIO Activated Partial Thromboplast Time 26.1 SEC Blood Urea Nitrogen 17 MG/DL Creatinine 1.20 MG/DL Random Glucose 93 MG/DL Total Protein 7.7 GM/DL Albumin 4.2 GM/DL Calcium Level 10.4 MG/DL Alkaline Phosphatase 56 U/L Aspartate Amino Transf (AST/SGOT) 23 U/L Alanine Aminotransferase (ALT/SGPT) 56 U/L Total Bilirubin 1.2 MG/DL Sodium Level 132 MEQ/L Potassium Level 2.8 MEQ/L Chloride Level 91 MEQ/L Carbon Dioxide Level 27.8 MEQ/L Anion Gap 13 MEQ/L Estimat Glomerular Filtration Rate 74 ML/MIN Lipase 102 U/L [facility] Medical Decision Making Medical Screen Exam Complete: Yes Emergency Medical Condition: Yes Medical Record Reviewed: Yes Differential Diagnosis Vomiting, dehydration, bowel obstruction, ileus, cyclic vomiting, cannabinoids hypertensive syndrome, appendicitis, pancreatitis, hepatobiliary disease Narrative Course Initial vital signs show heart rate 101, blood pressure 142/76, pulse ox 97% on room air, oral temp of 97.6F Heart rate improved to 64 after a liter of normal saline IV. CBC shows WBC 12.3, hemoglobin 16.5, hematocrit 40.1, platelets 269. CMP is remarkable for sodium 132, potassium 2.8, chloride 91, calcium 10.4. Lipase is 102. CT abdomen pelvis: No acute disease. Patient was given a dose of IV morphine and IV Zofran with initial improvement in pain and nausea. He was given 60 mg of oral potassium for his hypokalemia. On reassessment the patient again feels nauseous and is retching. He states his abdominal pain is returning. Given his hypokalemia, continued abdominal pain and nausea, the patient will be admitted for overnight observation for potassium replacement, symptomatic management, and reassessment in the morning. Case discussed with hospitalist Dr. Luz who will admit the patient to her service. 11:52 PM after the patient had been admitted, he started to complain of slight worsening asthma symptoms. He has history of asthma. There are slight end expiratory wheezes bilaterally. No respiratory distress. Albuterol inhaler treatments ordered. Diagnosis Primary Impression: Intractable abdominal pain Additional Impressions: Intractable nausea and vomiting Qualified Codes: R11.2 - Nausea with vomiting, unspecified Hypokalemia Admitting Information Admitting Physician Requests: Observation Marcelino Mcgraw MD Mar 27, 2017 20:18
[2017-03-27 20:31] VITALS: BP 132/79; PULSE 64; RESP 18; O2SAT 97
[2017-03-27 21:12] LABS: AUTOMATED NEUTROPHIL # 8.9 TH/MM3 (1.8-7.7); BASOPHIL # 0.1 TH/MM3 (0-0.2); BASOPHIL % 0.5 % (0.0-2.0); EOSINOPHIL # 0.1 TH/MM3 (0-0.4); EOSINOPHIL % 0.8 % (0.0-4.0); HEMATOCRIT 48.1 % (39.0-51.0); HEMO FLAGS DIFF FINAL; LYMPH % 16.5 % (9.0-44.0); MEAN CELL VOLUME 87.4 FL (80.0-100.0); MEAN CORPUSCULAR HGB CONC 34.3 % (32.0-36.0); MONO % 9.6 % (0.0-8.0); NEUT % 72.6 % (16.0-70.0); PLATELET COUNT 269 TH/MM3 (150-450); RED CELL DISTRIBUTION WIDTH 12.7 % (11.6-17.2); WHITE BLOOD COUNT 12.3 TH/MM3 (4.0-11.0)
[2017-03-27 21:20] LABS: APTT (PATIENT) 26.1 SEC (24.3-30.1); PROTHROMBIN TIME - PATIENT 11.4 SEC (9.8-11.6)
[2017-03-27 21:55] LABS: ALKALINE PHOSPHATASE 56 U/L (45-117); ALT (GPT) 56 U/L (12-78); ANION GAP 13 MEQ/L (5-15); AST (GOT) 23 U/L (15-37); BICARBONATE 27.8 MEQ/L (21.0-32.0); BLOOD UREA NITROGEN 17 MG/DL (7-18); CHLORIDE 91 MEQ/L (98-107); GLOMERULAR FILTRATION RATE 74 ML/MIN (>89); SODIUM (NA) 132 MEQ/L (136-145); TOTAL BILIRUBIN ADULT 1.2 MG/DL (0.2-1.0)
[2017-03-27 21:58] LABS: POTASSIUM 2.8 MEQ/L (3.5-5.1)
[2017-03-27 22:00] VITALS: BP 139/72; PULSE 118; RESP 18; O2SAT 99
[2017-03-27] MEDS ORDERED: POTASSIUM CHLORIDE 20 MEQ CONTROLLED RELEASE TAB PO ONE (22:15)
[2017-03-27] MEDS ORDERED: IOHEXOL 350 MG/ML 10 ML VIAL (for RAD DIAG) IVCONTRAST ONE (22:38)
--- NOTE | 2017-03-27 22:50 | RADRPT ---
EXAM DATE/TIME: 03/27/2017 22:23 [facility] COMPARISON: CT ABDOMEN & PELVIS W CONTRAST, February 05, 2016, 5:35. INDICATIONS : Abdominal pain. Nausea. Vomiting. IV CONTRAST: 100 cc Omnipaque 350 (iohexol) IV ORAL CONTRAST: No oral contrast ingested. RADIATION DOSE: 18.98 CTDIvol (mGy) MEDICAL HISTORY : None SURGICAL HISTORY : None. ENCOUNTER: Initial ACUITY: 1 week PAIN SCALE: 8/10 LOCATION: Bilateral upper quadrant lower quadrant TECHNIQUE: Volumetric scanning of the abdomen and pelvis was performed. Using automated exposure control and ad justment of the mA and/or kV according to patient size, radiation dose was kept as low as reasonably achievable to obtain optimal diagnostic quality images. DICOM format image data is available electro nically for review and comparison. FINDINGS: LOWER LUNGS: The visualized lower lungs are clear. LIVER: Homogeneous density without lesion. There is no dilation of the biliary tree. No calcified gallston es. SPLEEN: Normal size without lesion. PANCREAS: Within normal limits. KIDNEYS: Normal in size and shape. There is no mass, stone or hydronephrosis. ADRENAL GLANDS: Within normal limits. VASCULAR: There is no aortic aneurysm. BOWEL/MESENTERY: The stomach, small bowel, and colon demonstrate no acute abnormality. There is no free intraperitone al air or fluid. ABDOMINAL WALL: Within normal limits. RETROPERITONEUM: There is no lymphadenopathy. BLADDER: No wall thickening or mass. REPRODUCTIVE: Within normal limits. INGUINAL: There is no lymphadenopathy or hernia. MUSCULOSKELETAL: Within normal limits for patient age. CONCLUSION: No acute disease. Zion Emerson MD on March 27, 2017 at 22:46 Board Certified Radiologist. This report was verified electronically.
[2017-03-27] MEDS ORDERED: NALOXONE HCL 0.4 MG/ML AMP IV PUSH PRN (23:15)
[2017-03-27] MEDS ORDERED: ONDANSETRON HCL 4 MG/2 ML VIAL IVP PRN (23:15)
[2017-03-27] MEDS ORDERED: POTASSIUM CHLOR 20 MEQ PREMIX 100 ML IV ONE (23:15)
[2017-03-27 23:30] VITALS: BP 119/82; PULSE 68; RESP 18; O2SAT 99
[2017-03-27 23:38] LABS: GLUCOSE,URINE NEG (NEG); KETONE, URINE 80 OR GREATER mg/dL (NEG); NITRITE,URINE NEG (NEG); PH, URINE 6.5 (5.0-8.5)
[2017-03-27 23:52] LABS: BLOOD, URINE TRACE (NEG)
[2017-03-27 23:53] LABS: URINE COLOR YELLOW (YELLW/STRAW)
[2017-03-27 23:55] LABS: MUCUS URINE OCC /lpf (OCC); RBC, URINE 0-3 /hpf (0-3); SQUAMOUS EPITHELIAL CELL URINE 0-5 /hpf (0-5)
[2017-03-27 23:56] LABS: COMMENT (UR) CULT NOT INDICATED; CULTURE IF INDICATED CULT NOT INDICATED
[2017-03-28] VITALS (13 sets, daily range): BP systolic 106–142; BP diastolic 49–73; PULSE 52–66; RESP 10–31; TEMP 97.8–98.4; O2SAT 95–99
[2017-03-28] MEDS ORDERED: ALBUTEROL SULFATE 90 MCG/ACT HFA 8 GM INHALER INH ONE
[2017-03-28 00:09] LABS: POTASSIUM 3.1 MEQ/L (3.5-5.1)
[2017-03-28 00:37] LABS: BICARBONATE 27.3 MEQ/L (21.0-32.0); MAGNESIUM 2.1 MG/DL (1.5-2.5)
[2017-03-28] MEDS ORDERED: MORPHINE SULFATE 4 MG/ML INJ IV PRN (03:15)
[2017-03-28] MEDS: POTASSIUM CHLOR 20 MEQ PREMIX 100 ML IV SCH ×2 (03:30→05:54)
[2017-03-28 06:04] LABS: AUTOMATED NEUTROPHIL # 6.3 TH/MM3 (1.8-7.7); BASOPHIL % 0.5 % (0.0-2.0); EOSINOPHIL # 0.2 TH/MM3 (0-0.4); EOSINOPHIL % 2.5 % (0.0-4.0); HEMATOCRIT 38.4 % (39.0-51.0); HEMO FLAGS DIFF FINAL; LYMPH % 24.4 % (9.0-44.0); LYMPHOCYTE # 2.4 TH/MM3 (1.0-4.8); MEAN CELL VOLUME 87.5 FL (80.0-100.0); MEAN CORPUSCULAR HEMOGLOBIN 30.3 PG (27.0-34.0); MEAN CORPUSCULAR HGB CONC 34.7 % (32.0-36.0); MONO % 9.6 % (0.0-8.0); PLATELET COUNT 203 TH/MM3 (150-450); RED BLOOD COUNT 4.39 MIL/MM3 (4.50-5.90); RED CELL DISTRIBUTION WIDTH 12.6 % (11.6-17.2); WHITE BLOOD COUNT 9.9 TH/MM3 (4.0-11.0)
[2017-03-28 06:13] LABS: POTASSIUM 3.1 MEQ/L (3.5-5.1)
[2017-03-28 06:18] LABS: BICARBONATE 27.6 MEQ/L (21.0-32.0)
[2017-03-28] MEDS ORDERED: SODIUM CHLOR 0.9% 1000 ML INJ 1,000 ML IV ONE (08:30)
[2017-03-28] MEDS ORDERED: SODIUM CHLORIDE 0.9% FLUSH 10 ML FLUSH IV FLUSH SCH (09:00)
--- NOTE | 2017-03-28 09:22 | HHI.HP ---
[facility] Service [facility] Primary Care Physician Brent Winter M.D. Admission Diagnosis intractable nausea/vomiting/abdominal pain, hypokalemia Diagnoses: Chief Complaint: Nausea vomiting Travel History International Travel<30 Days: No Contact w/Intl Traveler <30 Da: No Traveled to Known Affected Are: No History of Present Illness 22-year-old white male being admitted for intractable nausea/vomiting. Patient was in his usual state of health until about one week ago when he began experiencing generalized abdominal pain associated with refractory nausea and vomiting. 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 He states that he has not been able to go to work all this week due to his symptoms and decided to proceed to the emergency room finally last night. States that he also had some onset of loose watery stools 2-3 days ago as well. States that his emesis and his stool are nonbloody. Denies any fevers or chills. Denies any burning with urination. States that 2 days prior to the onset of his symptoms he had smoked marijuana. He states that this presentation is very similar to his previous presentations to the ER (claims he is calm 7 times in the last 2 years) for the same reason. Says that his visits have become more spaced out for his visits associated with nausea and vomiting: Says he used to come every 3-6 months for nausea vomiting but now was able to hold off from returning for a 9 months; says in this timeframe he's cut down on smoking marijuana to 1-2x/day ( implying it was much more previously). Says that he feels much better now since first walking into the emergency room last night, says the Zofran has helped. Nursing reports that he has not had any emesis on the floor and has tolerated apple juice this morning. Patient himself says he has not had any diarrhea since entering the ER. Says that his pain also is improved, currently has no nausea. He denies any antibiotic use in the last 3 months and denies being sick around any individuals with a known C. difficile infection or symptoms suggestive of viral gastroenteritis. Chart review demonstrates that the patient has undergone EGD in the past that is negative for H. pylori, nonspecific inflammation and esophagus and stomach. Gallbladder ultrasound in the past is also unremarkable. Patient thinks he has had a gastric emptying study done at [facility] but is not sure. 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, admits to marijuana use ( ongoing still) Physical Exam Vital Signs Vital Signs Date Time Temp Pulse Resp B/P (MAP) Pulse Ox O2 Delivery O2 Flow Rate FiO2 03/28/17 04:00 66 13 118/52 (74) 98 03/28/17 02:00 98.4 62 31 135/73 (93) 95 03/28/17 02:00 62 03/28/17 00:42 03/27/17 23:37 16 03/27/17 23:30 68 18 119/82 (94) 99 Room Air 03/27/17 22:00 118 18 139/72 (94) 99 Room Air 03/27/17 20:50 16 03/27/17 20:31 64 18 132/79 (96) 97 Room Air 03/27/17 20:04 18 03/27/17 19:51 97.6 101 18 142/76 (98) 03/27/17 19:48 97.6 101 12 142/76 (98) 97 Physical Exam VS: Reviewed, afebrile, normotensive GENERAL: No acute distress, awake, alert SKIN: Warm and dry. EYES: Sunken eyes, no scleral icterus, no injection ENT: No nasal bleeding or discharge. Mucous membranes pink and moist. CARDIOVASCULAR: Regular rate and rhythm. no murmurs RESPIRATORY: No accessory muscle use. Clear to auscultation. Breath sounds equal bilaterally. GASTROINTESTINAL: Abdomen soft, non-tender, nondistended. Hepatic and splenic margins not palpable. MUSCULOSKELETAL: Extremities without clubbing, cyanosis, or edema. grossly intact ROM with 5/5 strength in upper and lower extremities proximally NEUROLOGICAL: Awake and alert. No facial droop nor slurred speech noted. PSYCHIATRIC: Appropriate mood and affect; insight and judgment normal. Laboratory Laboratory Tests Test 03/27/17 20:31 03/27/17 23:22 03/27/17 23:57 03/28/17 04:37 White Blood Count 12.3 9.9 Red Blood Count 5.50 4.39 Hemoglobin 16.5 13.3 Hematocrit 48.1 38.4 Mean Corpuscular Volume 87.4 87.5 Mean Corpuscular Hemoglobin 30.0 30.3 Mean Corpuscular Hemoglobin Concent 34.3 34.7 Red Cell Distribution Width 12.7 12.6 Platelet Count 269 203 Mean Platelet Volume 8.7 8.6 Neutrophils (%) (Auto) 72.6 63.0 Lymphocytes (%) (Auto) 16.5 24.4 Monocytes (%) (Auto) 9.6 9.6 Eosinophils (%) (Auto) 0.8 2.5 Basophils (%) (Auto) 0.5 0.5 Neutrophils # (Auto) 8.9 6.3 Lymphocytes # (Auto) 2.0 2.4 Monocytes # (Auto) 1.2 1.0 Eosinophils # (Auto) 0.1 0.2 Basophils # (Auto) 0.1 0.0 CBC Comment DIFF FINAL DIFF FINAL Differential Comment Prothrombin Time 11.4 Prothromb Time International Ratio 1.0 Activated Partial Thromboplast Time 26.1 Blood Urea Nitrogen 17 15 14 Creatinine 1.20 1.10 1.10 Random Glucose 93 87 91 Total Protein 7.7 Albumin 4.2 Calcium Level 10.4 9.4 8.9 Alkaline Phosphatase 56 Aspartate Amino Transf (AST/SGOT) 23 Alanine Aminotransferase (ALT/SGPT) 56 Total Bilirubin 1.2 Sodium Level 132 131 135 Potassium Level 2.8 3.1 3.1 Chloride Level 91 93 97 Carbon Dioxide Level 27.8 27.3 27.6 Anion Gap 13 11 10 Estimat Glomerular Filtration Rate 74 82 82 Lipase 102 Urine Color YELLOW Urine Turbidity CLEAR Urine pH 6.5 Urine Specific [place] GREATER THAN 1.035 Urine Protein NEG Urine Glucose (UA) NEG Urine Ketones 80 OR GREATER Urine Occult Blood TRACE Urine Nitrite NEG Urine Bilirubin NEG Urine Leukocyte Esterase NEG Urine RBC 0-3 Urine Squamous Epithelial Cells 0-5 Urine Mucus OCC Microscopic Urinalysis Comment CULT NOT INDICATED Magnesium Level 2.1 Result Diagram: 03/28/17 0437 03/28/17 0437 Imaging Last Impressions Abdomen/Pelvis CT 03/27/172013 Signed Impressions: Service Date/Time: Monday, March 27, 2017 22:23 - CONCLUSION: No acute disease. MD Kadi Motley VTE Risk Assessment Kadi VTE Risk Assessment: No/Low Risk (score <= 1) Caprini Risk Assessment Model Point Value = 1 Point Value = 2 Point Value = 3 Point Value = 5 Age 41-60 Minor surgery BMI > 25 kg/m2 Swollen legs Varicose veins or History of unexplained or recurrent spontaneous Oral contraceptives or hormone replacement Sepsis (< 1 month) Serious lung disease, including pneumonia (< 1 month) Abnormal pulmonary function Acute myocardial infarction Congestive heart failure (< 1 month) History of inflammatory bowel disease Medical patient at bed rest Age 61-74 Arthroscopic surgery Major open surgery (> 45 min) Laparoscopic surgery (> 45 min) Malignancy Confined to bed (> 72 hours) Immobilizing plaster cast Central venous access Age >= 75 History of VTE Family history of VTE Factor V Leiden Prothrombin [id number] Lupus anticoagulant Anticardiolipin antibodies Elevated serum homocysteine Heparin-induced thrombocytopenia Other congenital or acquired thrombophilia Stroke (< 1 month) Elective arthroplasty Hip, pelvis, or leg fracture Acute spinal cord injury (< 1 month) Prophylaxis Regimen Total Risk Factor Score Risk Level Prophylaxis Regimen 0-1 Low Early ambulation 2 Moderate Order ONE of the following: *Sequential Compression Device (SCD) *Heparin 5000 units SQ BID 3-4 Higher Order ONE of the following medications: *Heparin 5000 units SQ TID *Enoxaparin/Lovenox 40 mg SQ daily (WT < 150 kg, CrCl > 30 mL/min) *Enoxaparin/Lovenox 30 mg SQ daily (WT < 150 kg, CrCl > 10-29 mL/min) *Enoxaparin/Lovenox 30 mg SQ BID (WT < 150 kg, CrCl > 30 mL/min) AND/OR *Sequential Compression Device (SCD) 5 or more Highest Order ONE of the following medications: *Heparin 5000 units SQ TID (Preferred with Epidurals) *Enoxaparin/Lovenox 40 mg SQ daily (WT < 150 kg, CrCl > 30 mL/min) *Enoxaparin/Lovenox 30 mg SQ daily (WT < 150 kg, CrCl > 10-29 mL/min) *Enoxaparin/Lovenox 30 mg SQ BID (WT < 150 kg, CrCl > 30 mL/min) AND *Sequential Compression Device (SCD) Assessment and Plan Problem List: (1) Intractable nausea and vomiting ICD Code: R11.2 - Nausea with vomiting, unspecified Status: Acute (2) Abdominal pain ICD Code: R10.9 - Unspecified abdominal pain Status: Acute Assessment and Plan 22-year-old white male admitted for intractable nausea/vomiting. Hemodynamically stable upon admission Nausea/vomiting - viral gastroenteritis versus cyclical vomiting syndrome secondary to marijuana use. Improved with supportive care since admission, continue Zofran when necessary. Abdominal pain - same treatment for nausea/vomiting. Diarrhea - possibly secondary to marijuana hypermotility versus viral gastroenteritis Acute kidney injury secondary to dehydration secondary to nausea/vomiting - supportive care as above, will give IV fluids Hypokalemia - secondary to nausea/vomiting, replacing, anticipate correction with replenishment of fluid status Anticipate discharge in less than 24 hours pending toleration of po diet. Problem Qualifiers (1) Intractable nausea and vomiting: Qualified Codes: R11.2 - Nausea with vomiting, unspecified (2) Abdominal pain: Qualified Codes: R10.84 - Generalized abdominal pain Jay Taylor MD Mar 28, 2017 09:22
[2017-03-28] MEDS ORDERED: PROM12.54 PO ×2 (15:13→15:37)
--- NOTE | 2017-03-28 15:13 | HHI.DCPOC ---
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 Avoid second hand smoke Call the 24-hour hour crisis hotline for domestic abuse at Jay Taylor MD Mar 28, 2017 15:13
[2017-03-28] MEDS ORDERED: POTA-243 PO ×2 (15:18→15:37)
--- NOTE | 2017-03-28 15:18 | HHI.DS ---
Discharge Summary Admission Date Mar 27, 2017 at 23:13 Discharge Date: Mar 28, 2017 Admitting Diagnosis intractable nausea/vomiting/abdominal pain, hypokalemia (1) Intractable nausea and vomiting ICD Code: R11.2 - Nausea with vomiting, unspecified Status: Acute (2) Abdominal pain ICD Code: R10.9 - Unspecified abdominal pain Status: Acute Procedures none Brief History - From Admission 22-year-old white male being admitted for intractable nausea/vomiting. Patient was in his usual state of health until about one week ago when he began experiencing generalized abdominal pain associated with refractory nausea and vomiting. 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 He states that he has not been able to go to work all this week due to his symptoms and decided to proceed to the emergency room finally last night. States that he also had some onset of loose watery stools 2-3 days ago as well. States that his emesis and his stool are nonbloody. Denies any fevers or chills. Denies any burning with urination. States that 2 days prior to the onset of his symptoms he had smoked marijuana. He states that this presentation is very similar to his previous presentations to the ER (claims he is calm 7 times in the last 2 years) for the same reason. Says that his visits have become more spaced out for his visits associated with nausea and vomiting: Says he used to come every 3-6 months for nausea vomiting but now was able to hold off from returning for a 9 months; says in this timeframe he's cut down on smoking marijuana to 1-2x/day ( implying it was much more previously). Says that he feels much better now since first walking into the emergency room last night, says the [place] has helped. Nursing reports that he has not had any emesis on the floor and has tolerated apple juice this morning. Patient himself says he has not had any diarrhea since entering the ER. Says that his pain also is improved, currently has no nausea. He denies any antibiotic use in the last 3 months and denies being sick around any individuals with a known C. difficile infection or symptoms suggestive of viral gastroenteritis. Chart review demonstrates that the patient has undergone EGD in the past that is negative for H. pylori, nonspecific inflammation and esophagus and stomach. Gallbladder ultrasound in the past is also unremarkable. Patient thinks he has had a gastric emptying study done at [facility] but is not sure. CBC/BMP: 03/28/17 0437 03/28/17 0437 Significant Findings Laboratory Tests Test 03/27/17 20:31 03/27/17 23:22 03/27/17 23:57 03/28/17 04:37 White Blood Count 12.3 TH/MM3 (4.0-11.0) Neutrophils (%) (Auto) 72.6 % (16.0-70.0) Monocytes (%) (Auto) 9.6 % (0.0-8.0) 9.6 % (0.0-8.0) Neutrophils # (Auto) 8.9 TH/MM3 (1.8-7.7) Monocytes # (Auto) 1.2 TH/MM3 (0-0.9) 1.0 TH/MM3 (0-0.9) Calcium Level 10.4 MG/DL (8.5-10.1) Total Bilirubin 1.2 MG/DL (0.2-1.0) Sodium Level 132 MEQ/L (136-145) 131 MEQ/L (136-145) 135 MEQ/L (136-145) Potassium Level 2.8 MEQ/L (3.5-5.1) 3.1 MEQ/L (3.5-5.1) 3.1 MEQ/L (3.5-5.1) Chloride Level 91 MEQ/L (98-107) 93 MEQ/L (98-107) 97 MEQ/L (98-107) Estimat Glomerular Filtration Rate 74 ML/MIN (>89) 82 ML/MIN (>89) 82 ML/MIN (>89) Urine Specific [place] GREATER THAN 1.035 Urine Ketones 80 OR GREATER mg/dL (NEG) Urine Occult Blood TRACE (NEG) Red Blood Count 4.39 MIL/MM3 (4.50-5.90) Hematocrit 38.4 % (39.0-51.0) PE at Discharge No acute distress Abdomen soft nontender Hospital Course Patient was admitted, started on IV fluids and IV antiemetics. His lab workup was unremarkable and CT scan was also unremarkable. He was tolerating by mouth intake well and felt ready to go home. This was concluded to be due to cyclical vomiting syndrome secondary to marijuana usage. Patient was counseled extensively on ceasing all marijuana use. Patient has met maximum benefit from hospitalization and is clinically stable for discharge. He was instructed to follow-up with his primary care doctor and have his electrolytes rechecked. Pt Condition on Discharge: Stable Discharge Disposition: Discharge Home Discharge Time: > 30 minutes Discharge Instructions DIET: Follow Instructions for: As Tolerated, No Restrictions Activities you can perform: Regular-No Restrictions Follow up Referrals: PCP Follow-up - 2 Weeks New Medications: Promethazine (Promethazine) 12.5 Mg Tab 12.5 MG PO Q6H PRN for NAUSEA OR VOMITING, #12 TAB 0 Refills Continued Medications: Albuterol 6.7 GM Inh (Proventil Hfa 6.7 GM Inh) 90 Mcg/Act Aer 2 PUFF INH Q4-6H PRN for SHORTNESS OF BREATH, #1 INHALER 0 Refills Albuterol 8.5 GM Inh (Proair Hfa 8.5 GM Inh) 90 Mcg/Act Aer 2 PUFF INH Q4-6H PRN for SHORTNESS OF BREATH, #1 INHALER 0 Refills 108 mcg/actuation Albuterol Neb (Albuterol Neb) 2.5 Mg/3 Ml Neb 2.5 MG NEB Q4HR NEB for Breathing Treatment, #60 NEBULE 0 Refills While awake Fluticasone-Vilanterol Inh (Breo Ellipta Inh) 100-25 Mcg/Act Inh 1 PUFF INH DAILY, #1 INHALER 0 Refills Use daily at the same time. Fluticasone-Vilanterol Inh (Breo Ellipta Inh) 100-25 Mcg/Act Inh 1 PUFF INH DAILY, #1 INHALER 0 Refills Use daily at the same time. Ipratropium Neb (Ipratropium Neb) 0.5 Mg/2.5 Ml Amp 0.5 MG NEB Q4HR NEB for Breathing Treatment, #30 NEBULE 0 Refills Discontinued Medications: Prednisone (Prednisone) 20 Mg Tab 20 MG PO BID for 5 Days, TAB 0 Refills Jay Taylor MD Mar 28, 2017 15:18
[2017-03-29] MEDS ORDERED: ZOFR4TAB PO (16:18)
[2017-03-29] MEDS ORDERED: DICY10 PO (18:31)
[2017-03-29] MEDS ORDERED: PROC10TA PO (18:31)
== END 2017-03-28 15:58 | disposition home or self-care (01) ==
LOC: PHED 19:30 → PHEDA 23:13 → PHICU 03-28 01:00
PROVIDERS: ADMIT Hospitalist; ATTEND Hospitalist
DX: G43.A0 Cyclical vomiting, in migraine, not intractable (principal); T40.7X5A Adverse effect of cannabis (derivatives), initial encounter; E87.6 Hypokalemia; J45.909 Unspecified asthma, uncomplicated
CPT/HCPCS: 74177; 80048; 80053; 81001; 83690; 83735; 85025; 85610; 85730; 96361; 96365; 96366; 96375; 96376; 99285; G0378; J2270; J2405; J3480; J7030; Q9967

== ENCOUNTER 2017-03-29 15:40 | Emergency (ER) | payer SELFPAY ==
[~2017-03-29] VITALS: Ht 182.9 cm; Wt 107.0 kg
[~2017-03-29 15:40] MED LIST changes: +POTA-243 PO; -PRED20 PO; +PROM12.54 PO
[2017-03-29 15:46] VITALS: BP 134/85; PULSE 100; RESP 20; TEMP 98.2; O2SAT 97
[2017-03-29] MEDS ORDERED: SODIUM CHLOR 0.9% 1000 ML INJ 1,000 ML IV ONE (16:15)
[2017-03-29] MEDS ORDERED: DICYCLOMINE HCL 20 MG/2 ML VIAL IM ONE (16:15)
[2017-03-29] MEDS ORDERED: PROCHLORPERAZINE INJ 10 MG/2 ML VIAL IV PUSH ONE (16:15)
[2017-03-29] MEDS ORDERED: diphenhydrAMINE HCL 50 MG/ML VIAL IV PUSH ONE (16:15)
[2017-03-29] MEDS ORDERED: ZOFR4TAB PO (16:18)
[2017-03-29 16:20] VITALS: RESP 16; O2SAT 99
--- NOTE | 2017-03-29 16:20 | PD ---
HPI Chief Complaint: GI Complaint Time Seen by Provider: 16:14 Travel History International Travel<30 days: No Contact w/Intl Traveler<30days: No Traveled to known affect area: No History of Present Illness HPI This is a 22-year-old male with a history of cyclic vomiting syndrome secondary to using marijuana, who presents today with complaints of nausea vomiting and abdominal pain. Patient was just discharged from hospital yesterday for the same. He had not filled his prescriptions for his anti-medics. Mom was at the bedside states that he had been previously prescribed Zofran and was using this. She did not realize that he had been prescribed something stronger for the vomiting. There is no reported fevers, chills. Last time he is here he was dehydrated and had hypokalemia. There are no new complaints. PFSH Past Medical History Asthma: Yes Autoimmune Disease: No Blood Disorders: No Anxiety: No Depression: No Cancer: No Cardiovascular Problems: No Cerebrovascular Accident: No Diabetes: No Diminished Hearing: No Endocrine: No Gastrointestinal Disorders: Yes (per patient "they can't figure out what's wrong" N,V.) GERD: Yes Genitourinary: No Immune Disorder: No Musculoskeletal: No Neurologic: Yes Psychiatric: No Reproductive: No Respiratory: Yes (Asthma) Immunizations Current: Yes Migraines: No Seizures: No Thyroid Disease: No Tetanus Vaccination: < 5 Years Influenza Vaccination: No ?: Not Past Surgical History Abdominal Surgery: No Cardiac Surgery: No Ear Surgery: No Endocrine Surgery: No Eye Surgery: No Genitourinary Surgery: No Oral Surgery: No Thoracic Surgery: No Other Surgery: Yes Social History Alcohol Use: No Tobacco Use: No (quit one month ago-cigs) Substance Use: Yes (MARIJUANA DAILY states stopped 2 weeks ago) Allergies-Medications (Allergen,Severity, Reaction): Coded Allergies: dextromethorphan (Verified Allergy, Intermediate, HIVES, 03/29/17) Reported Meds & Prescriptions Reported Meds & Active Scripts Active Bentyl (Dicyclomine HCl) 10 Mg Cap 10 Mg PO QID Prochlorperazine Maleate 10 Mg Tab 10 Mg PO Q6H PRN Promethazine (Promethazine HCl) 12.5 Mg Tab 12.5 Mg PO Q6H PRN Klor-Con 10 (Potassium Chloride) 10 Meq Tab 10 Meq PO DAILY Breo Ellipta Inh (Fluticasone/Vilanterol) 100-25 Mcg/Act Inh 1 Puff INH DAILY Use daily at the same time. Proair Hfa 8.5 GM Inh (Albuterol Sulfate) 90 Mcg/Act Aer 2 Puff INH Q4-6H PRN 108 mcg/actuation Albuterol Neb (Albuterol Sulfate) 2.5 Mg/3 Ml Neb 2.5 Mg NEB Q4HR NEB While awake Ipratropium Neb (Ipratropium [place]) 0.5 Mg/2.5 Ml Amp 0.5 Mg NEB Q4HR NEB Reported Zofran (Ondansetron HCl) 4 Mg Tab 4 Mg PO Q8HR PRN Review of Systems Except as stated in HPI: all other systems reviewed are Neg General / Constitutional: No: Fever, Chills HENT: No: Headaches, Neck Pain Cardiovascular: No: Chest Pain or Discomfort, Palpitations Respiratory: No: Cough, Shortness of Breath Gastrointestinal: Positive: Nausea, Vomiting, Abdominal Pain Genitourinary: No: Decreased Urinary Output Musculoskeletal: No: Weakness, Pain Neurologic: Positive: Dizziness, No: Weakness, Headache Physical Exam Narrative GENERAL: Well-nourished, well-developed patient who is vomiting when I entered the room.. SKIN: Focused skin assessment warm/dry. HEAD: Normocephalic/atraumatic. EYES: No scleral icterus. No injection or drainage. NECK: Supple, trachea midline. No JVD or lymphadenopathy. CARDIOVASCULAR: Regular rate and rhythm without murmurs, gallops, or rubs. RESPIRATORY: Breath sounds equal bilaterally. No accessory muscle use. GASTROINTESTINAL: Abdomen soft, nondistended. There is no rebound or guarding. No hepatosplenomegaly. MUSCULOSKELETAL: No cyanosis, or edema. NEUROLOGICAL: Awake and alert. Cranial nerves II through XII intact. Motor grossly within normal limits. Five out of 5 muscle strength in all muscle groups. Data Data Last Documented VS Vital Signs Date Time Temp Pulse Resp B/P (MAP) Pulse Ox O2 Delivery O2 Flow Rate FiO2 03/29/17 18:00 16 03/29/17 16:20 99 Room Air 03/29/17 15:46 98.2 100 134/85 (101) Orders Orders Diphenhydramine Inj (Benadryl Inj) (03/29/17 16:15) Prochlorperazine Inj (Compazine Inj) (03/29/17 16:15) Dicyclomine Inj (Bentyl Inj) (03/29/17 16:15) Sodium Chlor 0.9% 1000 Ml Inj (Ns 1000 M (03/29/17 16:15) Complete Blood Count With Diff (03/29/17 16:14) Comprehensive Metabolic Panel (03/29/17 16:14) Iv Access Insert/Monitor (03/29/17 16:14) Ecg Monitoring (03/29/17 16:14) Oximetry (03/29/17 16:14) Labs Laboratory Tests Test 03/29/17 16:40 White Blood Count 7.9 TH/MM3 Red Blood Count 5.11 MIL/MM3 Hemoglobin 15.1 GM/DL Hematocrit 44.3 % Mean Corpuscular Volume 86.8 FL Mean Corpuscular Hemoglobin 29.6 PG Mean Corpuscular Hemoglobin Concent 34.1 % Red Cell Distribution Width 12.6 % Platelet Count 252 TH/MM3 Mean Platelet Volume 8.7 FL Neutrophils (%) (Auto) 66.9 % Lymphocytes (%) (Auto) 20.0 % Monocytes (%) (Auto) 8.0 % Eosinophils (%) (Auto) 2.7 % Basophils (%) (Auto) 2.4 % Neutrophils # (Auto) 5.3 TH/MM3 Lymphocytes # (Auto) 1.6 TH/MM3 Monocytes # (Auto) 0.6 TH/MM3 Eosinophils # (Auto) 0.2 TH/MM3 Basophils # (Auto) 0.2 TH/MM3 CBC Comment DIFF FINAL Differential Comment Blood Urea Nitrogen 4 MG/DL Creatinine 1.00 MG/DL Random Glucose 104 MG/DL Total Protein 6.9 GM/DL Albumin 3.8 GM/DL Calcium Level 9.8 MG/DL Alkaline Phosphatase 48 U/L Aspartate Amino Transf (AST/SGOT) 28 U/L Alanine Aminotransferase (ALT/SGPT) 48 U/L Total Bilirubin 0.7 MG/DL Sodium Level 136 MEQ/L Potassium Level 3.5 MEQ/L Chloride Level 100 MEQ/L Carbon Dioxide Level 26.8 MEQ/L Anion Gap 9 MEQ/L Estimat Glomerular Filtration Rate 92 ML/MIN MDM Medical Decision Making Medical Screen Exam Complete: Yes Emergency Medical Condition: Yes Differential Diagnosis Cyclic vomiting syndrome versus gastroenteritis versus intractable vomiting versus pancreatitis Narrative Course 42-year-old male with history of cannabis related cyclic vomiting, presents here with abdominal cramps and cyclic vomiting. The patient was discharged yesterday from the hospital after being admitted for the same. He was given 50 mg of Benadryl and 10 mg of IVD, sent. He was also given 10 mg of IVD Bentyl. He is much more comfortable. He'll be discharged with a prescription for Bentyl and Compazine. He is instructed had Benadryl every 6 hours for the next 24-36 hours. He is instructed to have a bland diet and advance as tolerated. Diagnosis Primary Impression: Cannabinoid hyperemesis syndrome Additional Instructions: 8 Benadryl every 6 hours 24-36 hours with nausea medicine and antispasmodics. [place] diet, advance as tolerated. Med/Other Pt SpecificInfo: Prescription(s) given Scripts Dicyclomine (Bentyl) 10 Mg Cap 10 MG PO QID for Bowel Management, #20 CAP 0 Refills Prov: Miguel Skinner MD 03/29/17 Prochlorperazine Maleate (Prochlorperazine Maleate) 10 Mg Tab 10 MG PO Q6H Y for NAUSEA OR VOMITING, #20 TAB 0 Refills Prov: Miguel Skinner MD 03/29/17 Disposition: 01 DISCHARGE HOME Condition: Stable Miguel Skinner MD Mar 29, 2017 16:20
[2017-03-29 16:50] LABS: AUTOMATED NEUTROPHIL # 5.3 TH/MM3 (1.8-7.7); BASOPHIL # 0.2 TH/MM3 (0-0.2); BASOPHIL % 2.4 % (0.0-2.0); EOSINOPHIL # 0.2 TH/MM3 (0-0.4); EOSINOPHIL % 2.7 % (0.0-4.0); HEMATOCRIT 44.3 % (39.0-51.0); HEMO FLAGS DIFF FINAL; LYMPHOCYTE # 1.6 TH/MM3 (1.0-4.8); MEAN CELL VOLUME 86.8 FL (80.0-100.0); MEAN CORPUSCULAR HEMOGLOBIN 29.6 PG (27.0-34.0); MEAN CORPUSCULAR HGB CONC 34.1 % (32.0-36.0); NEUT % 66.9 % (16.0-70.0); PLATELET COUNT 252 TH/MM3 (150-450); RED BLOOD COUNT 5.11 MIL/MM3 (4.50-5.90); RED CELL DISTRIBUTION WIDTH 12.6 % (11.6-17.2); WHITE BLOOD COUNT 7.9 TH/MM3 (4.0-11.0)
[2017-03-29 17:00] LABS: CHLORIDE 100 MEQ/L (98-107); POTASSIUM 3.5 MEQ/L (3.5-5.1); SODIUM (NA) 136 MEQ/L (136-145)
[2017-03-29 17:15] VITALS: BP 128/79; PULSE 83; RESP 16; O2SAT 98
[2017-03-29 17:58] LABS: ALKALINE PHOSPHATASE 48 U/L (45-117); ALT (GPT) 48 U/L (12-78); ANION GAP 9 MEQ/L (5-15); AST (GOT) 28 U/L (15-37); BICARBONATE 26.8 MEQ/L (21.0-32.0); BLOOD UREA NITROGEN 4 MG/DL (7-18); GLOMERULAR FILTRATION RATE 92 ML/MIN (>89); TOTAL BILIRUBIN ADULT 0.7 MG/DL (0.2-1.0)
[2017-03-29] MEDS ORDERED: DICY10 PO (18:31)
[2017-03-29] MEDS ORDERED: PROC10TA PO (18:31)
[2017-03-29 18:57] VITALS: BP 121/77
== END 2017-03-29 19:02 | disposition home or self-care (01) ==
LOC: PHED 15:40
DX: R11.2 Nausea with vomiting, unspecified (principal); T40.7X5A Adverse effect of cannabis (derivatives), initial encounter
CPT/HCPCS: 80053; 85025; 96361; 96372; 96374; 96375; 99284; J0500; J0780; J1200; J7030

== ENCOUNTER 2017-10-14 21:53 | Emergency (ER) | payer SELFPAY ==
[~2017-10-14 21:53] MED LIST changes: -ALBU6.7H INH; +DICY10 PO; +KLOR10TA PO; -POTA-243 PO; +PROC10TA PO; +ZOFR4TAB PO
[2017-10-14 21:58] VITALS: BP 143/85; PULSE 110; RESP 20; TEMP 98.5; O2SAT 95
--- NOTE | 2017-10-14 23:52 | PD ---
HPI Chief Complaint: Respiratory Symptoms Time Seen by Provider: 23:48 Travel History International Travel<30 days: No Contact w/Intl Traveler<30days: No Traveled to known affect area: No History of Present Illness HPI 22-year-old male presents to the emergency department by private transportation for complaint of shortness of breath. Patient has history of asthma. Patient' s been out of his Breo maintenance medication and has not had symptom relief with his rescue inhaler albuterol. Patient has not recently been on steroid therapy. Last week had minor upper respiratory infection symptoms. No fever or productive cough at this time. Patient states he notes that his breathing is very tight. No report of recent long distance travel protracted bedrest or surgical procedure. No report of lower extremity pain or swelling. PFSH Past Medical History Narrative Medical Asthma; no tobacco use; nursing notes reviewed Asthma: Yes Autoimmune Disease: No Blood Disorders: No Anxiety: No Depression: No Cancer: No Cardiovascular Problems: No Cerebrovascular Accident: No Diabetes: No Diminished Hearing: No Endocrine: No Gastrointestinal Disorders: Yes (per patient "they can't figure out what's wrong" N,V.) GERD: Yes Genitourinary: No Immune Disorder: No Musculoskeletal: No Neurologic: Yes Psychiatric: No Reproductive: No Respiratory: Yes (Asthma) Immunizations Current: Yes Migraines: No Seizures: No Thyroid Disease: No Tetanus Vaccination: < 5 Years Influenza Vaccination: Yes ([place]) Past Surgical History Abdominal Surgery: No Cardiac Surgery: No Ear Surgery: No Endocrine Surgery: No Eye Surgery: No Genitourinary Surgery: No Oral Surgery: No Thoracic Surgery: No Other Surgery: Yes Social History Alcohol Use: Yes ([facility]) Tobacco Use: No (quit one month ago-cigs) Substance Use: No (MARIJUANA DAILY states stopped 2 weeks ago) Allergies-Medications (Allergen,Severity, Reaction): Coded Allergies: dextromethorphan (Verified Allergy, Intermediate, HIVES, 10/14/17) Reported Meds & Prescriptions Reported Meds & Active Scripts Active Breo Ellipta Inh (Fluticasone/Vilanterol) 100-25 Mcg/Act Inh 1 Puff INH DAILY Use daily at the same time. Proair Hfa 8.5 GM Inh (Albuterol Sulfate) 90 Mcg/Act Aer 2 Puff INH Q4-6H PRN 108 mcg/actuation Albuterol Neb (Albuterol Sulfate) 2.5 Mg/3 Ml Neb 2.5 Mg NEB Q4HR NEB While awake Ipratropium Neb (Ipratropium [place]) 0.5 Mg/2.5 Ml Amp 0.5 Mg NEB Q4HR NEB Review of Systems Except as stated in HPI: all other systems reviewed are Neg General / Constitutional: No: Fever, Chills HENT: No: Congestion Cardiovascular: No: Chest Pain or Discomfort Respiratory: Positive: Cough, Shortness of Breath, Wheezing Gastrointestinal: No: Vomiting, Abdominal Pain Genitourinary: No: Flank Pain Musculoskeletal: No: Myalgias, Arthralgias Skin: No Rash Neurologic: No: Weakness, Dizziness, Syncope Psychiatric: No: Anxiety Hematologic/Lymphatic: No: Easy Bruising Physical Exam Narrative GENERAL: Well-developed well-nourished male SKIN: Warm and dry. HEAD: Normocephalic. EYES: No scleral icterus. No injection or drainage. NECK: Supple, trachea midline. No JVD or lymphadenopathy. CARDIOVASCULAR: Regular rate and rhythm without murmurs, gallops, or rubs. RESPIRATORY: Breath sounds equal bilaterally with bilateral wheezing. No accessory muscle use. GASTROINTESTINAL: Abdomen soft, non-tender, nondistended. MUSCULOSKELETAL: No cyanosis, or edema. BACK: Nontender without obvious deformity. No CVA tenderness. Data Data Last Documented VS Vital Signs Date Time Temp Pulse Resp B/P (MAP) Pulse Ox O2 Delivery O2 Flow Rate FiO2 10/15/17 00:38 101 18 106/54 (71) 95 Room Air 10/14/17 21:58 98.5 Orders Orders Iv Access Insert/Monitor (10/14/17 23:47) Ecg Monitoring (10/14/17 23:47) Oximetry (10/14/17 23:47) Oxygen Administration (10/14/17 23:47) Chest, Pa & Lat (10/14/17 23:47) Sodium Chloride 0.9% Flush (Ns Flush) (10/15/17 00:00) Methylprednisolone So Succ Inj (Solumedr (10/15/17 00:00) Albuterol-Ipratropium Neb (Duoneb Neb) (10/15/17 00:00) Ed Discharge Order (10/15/17 01:16) MDM Medical Decision Making Medical Screen Exam Complete: Yes Emergency Medical Condition: Yes Medical Record Reviewed: Yes Interpretation(s) Vital Signs Date Time Temp Pulse Resp B/P (MAP) Pulse Ox O2 Delivery O2 Flow Rate FiO2 10/15/17 00:38 101 18 106/54 (71) 95 Room Air 10/15/17 00:36 18 95 Room Air 10/15/17 00:36 95 Room Air 10/14/17 23:27 20 93 Room Air 10/14/17 21:58 98.5 110 20 143/85 (104) 95 Differential Diagnosis Exacerbation asthma, bronchitis, pneumonia Narrative Course Patient given updraft 3 along with Solu-Medrol chest x-ray ordered Patient clinically improved with room air O2 saturation 97% diminished wheezing and improved aeration. Patient is stable for outpatient management provided refill prescription for his duoneb inhaler and prednisone Patient is to follow up with his primary care provider on Monday Diagnosis Primary Impression: Asthma exacerbation Additional Impression: Medication refill Referrals: Primary Care Physician 2 days Patient Instructions: General Instructions Additional Instructions: Increase fluid hydration No work 2 days Follow-up with your primary care provider in 2 days Use her inhaler as prescribed Take acetaminophen/Tylenol as needed for fever 100.4F or greater Med/Other Pt SpecificInfo: Prescription(s) given Scripts Prednisone (Prednisone) 20 Mg Tab 40 MG PO DAILY, #4 TAB 0 Refills Take 40 mg (2 tablets) daily for 5 days Prov: Jenna Messer MD 10/15/17 Ipratropium-Albuterol Inh (Combivent Respimat Inh) 20-100 [place]/Act Aero 1 PUFF INH QID for Asthma Management, #1 INHALER 0 Refills Prov: Jenna Messer MD 10/15/17 Disposition: 01 DISCHARGE HOME Condition: Stable Jenna Messer MD Oct 14, 2017 23:52
[2017-10-15] MEDS ORDERED: methylPREDNISolone SOD SUCC 125 MG/2 ML VIAL IV PUSH ONE
[2017-10-15] MEDS ORDERED: SODIUM CHLORIDE 0.9% FLUSH 10 ML FLUSH IVF PRN
[2017-10-15] MEDS: RESP: ALBUTEROL 2.5 MG/IPRATROPIUM 0.5 MG NEB (SCH) INH ×3 (00:05→00:24)
[2017-10-15 00:36] VITALS: RESP 18; O2SAT 95
[2017-10-15 00:38] VITALS: BP 106/54; PULSE 101; RESP 18; O2SAT 95
--- NOTE | 2017-10-15 00:58 | RADRPT ---
EXAM DATE/TIME: 10/14/2017 23:54 [facility] COMPARISON: CHEST PA & LAT, September 11, 2016, 3:21. INDICATIONS : Short of breath MEDICAL HISTORY : Asthma SURGICAL HISTORY : ORIF right clavicle ENCOUNTER: Initial ACUITY: 1 day PAIN SCORE: 0/10 LOCATION: Bilateral chest FINDINGS: PA and lateral views of the chest. Internal fixation metallic plate and transfixing screws at right c lavicle. The lungs are clear. Cardiomediastinal silhouette within normal limits. No evidence of pleur al effusion or pneumothorax. CONCLUSION: No acute cardiopulmonary disease identified. Vazquez Gu MD on October 15, 2017 at 0:56 Board Certified Radiologist. This report was verified electronically.
[2017-10-15] MEDS ORDERED: PRED20 PO (01:19)
[2017-10-15] MEDS ORDERED: IPRAAER INH (01:19)
== END 2017-10-15 01:47 | disposition home or self-care (01) ==
LOC: PHED 21:53
DX: J45.901 Unspecified asthma with (acute) exacerbation (principal); K21.9 Gastro-esophageal reflux disease without esophagitis; Z76.0 Encounter for issue of repeat prescription
CPT/HCPCS: 71046; 94640; 94664; 96374; 99284; J2930

== ENCOUNTER 2017-10-24 11:37 | Emergency (ER) | payer SELFPAY ==
[~2017-10-24] VITALS: Ht 182.9 cm; Wt 112.5 kg
[~2017-10-24 11:37] MED LIST changes: -DICY10 PO; +IPRAAER INH; -KLOR10TA PO; +PRED20 PO; -PROC10TA PO; -PROM12.54 PO; -ZOFR4TAB PO
[2017-10-24 11:41] VITALS: BP 136/74; PULSE 111; RESP 18; TEMP 97.4; O2SAT 99
[2017-10-24] MEDS ORDERED: PRED20 PO (11:58)
--- NOTE | 2017-10-24 11:59 | PD ---
HPI Chief Complaint: Respiratory Symptoms Time Seen by Provider: 11:51 Travel History International Travel<30 days: No Contact w/Intl Traveler<30days: No Traveled to known affect area: No History of Present Illness HPI This 22-year-old male is complaining of shortness of breath. He has a history of asthma. He says he started wheezing around 5:00 this morning. He used his inhaler but it did not help. He has a history of asthma. He has not had fever or chills. He was treated for an asthma exacerbation last week and was on prednisone for a few days. PFSH Past Medical History Asthma: Yes Autoimmune Disease: No Blood Disorders: No Anxiety: No Depression: No Cancer: No Cardiovascular Problems: No Cerebrovascular Accident: No Diabetes: No Diminished Hearing: No Endocrine: No Gastrointestinal Disorders: Yes (per patient "they can't figure out what's wrong" N,V.) GERD: Yes Genitourinary: No Immune Disorder: No Musculoskeletal: No Neurologic: Yes Psychiatric: No Reproductive: No Respiratory: Yes (asthma) Immunizations Current: Yes Migraines: No Seizures: No Thyroid Disease: No Influenza Vaccination: Yes Past Surgical History Abdominal Surgery: No Cardiac Surgery: No Ear Surgery: No Endocrine Surgery: No Eye Surgery: No Genitourinary Surgery: No Oral Surgery: No Thoracic Surgery: No Other Surgery: Yes Social History Alcohol Use: Yes ([facility]) Tobacco Use: No (quit one month ago-cigs) Substance Use: No ([place]IJ[place] DAILY states stopped 2 weeks ago) Allergies-Medications (Allergen,Severity, Reaction): Coded Allergies: dextromethorphan (Verified Allergy, Intermediate, HIVES, 10/24/17) Reported Meds & Prescriptions Reported Meds & Active Scripts Active Prednisone 20 Mg Tab 20 Mg PO DIRECTED Take 60 MG daily x 4 days, then 40 MG x 4 days, then 20 MG daily x 4 days. Combivent Respimat Inh (Ipratropium-Albuterol Inh) 20-100 [facility]/Act Aero 1 Puff INH QID Breo Ellipta Inh (Fluticasone/Vilanterol) 100-25 Mcg/Act Inh 1 Puff INH DAILY Use daily at the same time. Proair Hfa 8.5 GM Inh (Albuterol Sulfate) 90 Mcg/Act Aer 2 Puff INH Q4-6H PRN 108 mcg/actuation Albuterol Neb (Albuterol Sulfate) 2.5 Mg/3 Ml Neb 2.5 Mg NEB Q4HR NEB While awake Ipratropium Neb (Ipratropium [place]) 0.5 Mg/2.5 Ml Amp 0.5 Mg NEB Q4HR NEB Review of Systems General / Constitutional: No: Fever, Chills Eyes: No: Diploplia, Blurred Vision HENT: No: Headaches, Vertigo Cardiovascular: No: Chest Pain or Discomfort, Palpitations Respiratory: Positive: Shortness of Breath, Wheezing Gastrointestinal: No: Vomiting, Diarrhea Genitourinary: No: Urgency, Frequency Musculoskeletal: No: Myalgias Skin: No Rash Psychiatric: No: Anxiety Endocrine: No: Heat Intolerance Hematologic/Lymphatic: No: Easy Bruising Physical Exam Narrative GENERAL well-developed male SKIN: Focused skin assessment warm/dry. HEAD: Atraumatic. Normocephalic. EYES: Pupils equal and round. No scleral icterus. No injection or drainage. ENT: No nasal bleeding or discharge. Mucous membranes pink and moist. NECK: Trachea midline. No JVD. CARDIOVASCULAR: Regular rate and rhythm. No murmur appreciated. RESPIRATORY: No accessory muscle use. Bilateral expiratory wheezes GASTROINTESTINAL: Abdomen soft, non-tender, nondistended. Hepatic and splenic margins not palpable. MUSCULOSKELETAL: No obvious deformities. No clubbing. No cyanosis. No edema. NEUROLOGICAL: Awake and alert. No obvious cranial nerve deficits. Motor grossly within normal limits. Normal speech. PSYCHIATRIC: Appropriate mood and affect; insight and judgment normal. Data Data Last Documented VS Vital Signs Date Time Temp Pulse Resp B/P (MAP) Pulse Ox O2 Delivery O2 Flow Rate FiO2 10/24/17 13:01 110 125/68 (87) 94 10/24/17 11:50 20 Room Air 10/24/17 11:41 97.4 Orders Orders Prednisone (Deltasone) (10/24/17 12:00) Albuterol-Ipratropium Neb (Duoneb Neb) (10/24/17 12:00) [facility] Medical Decision Making Medical Screen Exam Complete: Yes Emergency Medical Condition: Yes Medical Record Reviewed: Yes Differential Diagnosis Differential includes asthma, bronchospasm, allergic Narrative Course Given nebulizer treatments initial dose of prednisone. He will be released with prescription for a prednisone taper. On repeat examination his lungs are clear Diagnosis Primary Impression: Acute asthma exacerbation Scripts Prednisone (Prednisone) 20 Mg Tab 20 MG PO DIRECTED, #24 TAB 0 Refills Take 60 MG daily x 4 days, then 40 MG x 4 days, then 20 MG daily x 4 days. Prov: Jorge Mullen MD 10/24/17 Disposition: 01 DISCHARGE HOME Condition: Stable Jorge Mullen MD Oct 24, 2017 11:58
[2017-10-24] MEDS ORDERED: predniSONE 20 MG TAB PO ONE (12:00)
[2017-10-24] MEDS ORDERED: RESP: ALBUTEROL 2.5 MG/IPRATROPIUM 0.5 MG NEB (SCH) NEB ONE (12:00)
[2017-10-24 12:47] VITALS: BP 125/68; O2SAT 98
[2017-10-24 13:01] VITALS: BP 125/68; PULSE 110; O2SAT 94
== END 2017-10-24 13:19 | disposition home or self-care (01) ==
LOC: PHED 11:37
DX: J45.901 Unspecified asthma with (acute) exacerbation (principal); K21.9 Gastro-esophageal reflux disease without esophagitis
CPT/HCPCS: 94664; 99283; J7512

== ENCOUNTER 2017-11-24 04:03 | Inpatient (IN) | payer SELFPAY ==
[~2017-11-24] VITALS: Ht 190.5 cm; Wt 112.3 kg
[2017-11-24] VITALS (48 sets, daily range): BP systolic 62–199; BP diastolic 42–102; PULSE 110–152; RESP 14–49; TEMP 98.4–98.9; O2SAT 89–100
[2017-11-24] MEDS: RESP: ALBUTEROL 2.5 MG/IPRATROPIUM 0.5 MG NEB (SCH) INH ×4 (04:12→05:16)
[2017-11-24] MEDS ORDERED: SODIUM CHLOR 0.9% 1000 ML INJ 1,000 ML IV ONE ×2 (04:15→23:45)
[2017-11-24] MEDS ORDERED: methylPREDNISolone SOD SUCC 125 MG/2 ML VIAL IV PUSH ONE ×2 (04:15→13:00)
[2017-11-24] MEDS ORDERED: SODIUM CHLORIDE 0.9% FLUSH 10 ML FLUSH IVF PRN (04:15)
[2017-11-24] MEDS: MAGNESIUM SULFATE 1 GM PREMIX 100 ML IV SCH ×2 (04:18→04:57)
--- NOTE | 2017-11-24 04:21 | PD ---
HPI Chief Complaint: Respiratory Symptoms Time Seen by Provider: 04:08 Travel History International Travel<30 days: No Contact w/Intl Traveler<30days: No Traveled to known affect area: No History of Present Illness HPI Patient is a 22-year-old male who presents the emergency room with complaints of asthma attack. Patient reports that he had some wheezing tonight, reports that he went to bed and woke up short of breath. Patient is unsure what exacerbates his asthma exacerbations, he did try using an albuterol treatment with no relief of symptoms. Patient reports that he has had a nonproductive cough along with his shortness of breath. Patient denies any fever or chills, no sick contacts. Patient is a non-smoker. Patient reports that the last time he was admitted for an asthma exacerbation was about 1 year ago. PFSH Past Medical History Asthma: Yes Autoimmune Disease: No Blood Disorders: No Anxiety: No Depression: No Cancer: No Cardiovascular Problems: No Cerebrovascular Accident: No Diabetes: No Diminished Hearing: No Endocrine: No Gastrointestinal Disorders: Yes (per patient "they can't figure out what's wrong" N,V.) GERD: Yes Genitourinary: No Immune Disorder: No Musculoskeletal: No Neurologic: Yes Psychiatric: No Reproductive: No Respiratory: Yes (asthma) Immunizations Current: Yes Migraines: No Seizures: No Thyroid Disease: No ?: Not Past Surgical History Abdominal Surgery: No Cardiac Surgery: No Ear Surgery: No Endocrine Surgery: No Eye Surgery: No Genitourinary Surgery: No Oral Surgery: No Thoracic Surgery: No Other Surgery: Yes Social History Alcohol Use: Yes (OCC) Tobacco Use: No (quit one month ago-cigs) Substance Use: No (MARIJUA[place] DAILY states stopped 2 weeks ago) Allergies-Medications (Allergen,Severity, Reaction): Coded Allergies: dextromethorphan (Verified Allergy, Intermediate, HIVES, 11/24/17) Reported Meds & Prescriptions Reported Meds & Active Scripts Active Proair Hfa 8.5 GM Inh (Albuterol Sulfate) 90 Mcg/Act Aer 2 Puff INH Q4-6H PRN 108 mcg/actuation Albuterol Neb (Albuterol Sulfate) 2.5 Mg/3 Ml Neb 2.5 Mg NEB Q4HR NEB While awake Review of Systems General / Constitutional: No: Fever Eyes: No: Visual changes HENT: No: Headaches Cardiovascular: No: Chest Pain or Discomfort Respiratory: Positive: Cough, Shortness of Breath, Wheezing Gastrointestinal: No: Abdominal Pain Genitourinary: No: Dysuria Musculoskeletal: No: Pain Skin: No Rash Neurologic: No: Weakness Psychiatric: No: Depression Endocrine: No: Polydipsia Hematologic/Lymphatic: No: Easy Bruising Physical Exam Narrative GENERAL: Moderate distress SKIN: Focused skin assessment warm/dry. HEAD: Atraumatic. Normocephalic. EYES: Pupils equal and round. No scleral icterus. No injection or drainage. ENT: No nasal bleeding or discharge. Mucous membranes pink and moist. NECK: Trachea midline. No JVD. CARDIOVASCULAR: Tachycardia. No murmur appreciated. RESPIRATORY: Patient with diffuse wheezing to bilateral upper and lower lobes of lungs. Breath sounds equal bilaterally. GASTROINTESTINAL: Abdomen soft, non-tender, nondistended. Hepatic and splenic margins not palpable. MUSCULOSKELETAL: No obvious deformities. No clubbing. No cyanosis. No edema. NEUROLOGICAL: Awake and alert. No obvious cranial nerve deficits. Motor grossly within normal limits. Normal speech. PSYCHIATRIC: Anxious mood and affect; insight and judgment normal. Data Data Last Documented VS Vital Signs Date Time Temp Pulse Resp B/P (MAP) Pulse Ox O2 Delivery O2 Flow Rate FiO2 11/24/17 05:15 122 28 92 Aerosol Mask 11/24/17 05:04 4.00 11/24/17 04:07 98.5 Orders Orders Basic Metabolic Panel (Bmp) (11/24/17 04:08) Complete Blood Count With Diff (11/24/17 04:08) Chest, Single Ap (11/24/17 04:08) Ecg Monitoring (11/24/17 04:08) Iv Access Insert/Monitor (11/24/17 04:08) Oximetry (11/24/17 04:08) Methylprednisolone So Succ Inj (Solumedr (11/24/17 04:15) Albuterol-Ipratropium Neb (Duoneb Neb) (11/24/17 04:15) Sodium Chloride 0.9% Flush (Ns Flush) (11/24/17 04:15) Magnesium Sulfate 1 Gm Premix (Magnesium (11/24/17 04:15) Sodium Chlor 0.9% 1000 Ml Inj (Ns 1000 M (11/24/17 04:15) Arterial Blood Gas (Abg) (11/24/17 ) Potassium Chloride (Kcl) (11/24/17 05:00) Albuterol-Ipratropium Neb (Duoneb Neb) (11/24/17 05:15) Admit Order (Ed Use Only) (11/24/17 05:51) Admit To Inpatient (11/24/17 ) Vital Signs (Adult) Q4H (11/24/17 05:50) Diet Regular Basic (11/24/17 Breakfast) Labs Laboratory Tests Test 11/24/17 04:15 11/24/17 05:01 White Blood Count 13.1 TH/MM3 Red Blood Count 4.91 MIL/MM3 Hemoglobin 14.7 GM/DL Hematocrit 44.0 % Mean Corpuscular Volume 89.7 FL Mean Corpuscular Hemoglobin 30.0 PG Mean Corpuscular Hemoglobin Concent 33.4 % Red Cell Distribution Width 12.5 % Platelet Count 221 TH/MM3 Mean Platelet Volume 8.1 FL Neutrophils (%) (Auto) 71.3 % Lymphocytes (%) (Auto) 16.8 % Monocytes (%) (Auto) 5.4 % Eosinophils (%) (Auto) 5.9 % Basophils (%) (Auto) 0.6 % Neutrophils # (Auto) 9.3 TH/MM3 Lymphocytes # (Auto) 2.2 TH/MM3 Monocytes # (Auto) 0.7 TH/MM3 Eosinophils # (Auto) 0.8 TH/MM3 Basophils # (Auto) 0.1 TH/MM3 CBC Comment AUTO DIFF Differential Comment AUTO DIFF CONFIRMED Platelet Estimate NORMAL Platelet Morphology Comment NORMAL Red Cell Morphology Comment NORMAL Blood Urea Nitrogen 8 MG/DL Creatinine 1.10 MG/DL Random Glucose 136 MG/DL Calcium Level 9.5 MG/DL Sodium Level 141 MEQ/L Potassium Level 3.4 MEQ/L Chloride Level 106 MEQ/L Carbon Dioxide Level 28.8 MEQ/L Anion Gap 6 MEQ/L Estimat Glomerular Filtration Rate 82 ML/MIN Blood Gas Puncture Site RT RADIAL Blood Gas Patient Temperature 98.6 Blood Gas HCO3 24 mmol/L Blood Gas Base Excess -0.6 mmol/L Blood Gas Oxygen Saturation 87 % Arterial Blood pH 7.41 Arterial Blood Partial Pressure CO2 38 mmHG Arterial Blood Partial Pressure O2 55 mmHG Arterial Blood Oxygen Content 16.6 Vol % Arterial Blood Carboxyhemoglobin 1.5 % Arterial Blood Methemoglobin 1.1 % Blood Gas Hemoglobin 13.6 G/DL Oxygen Delivery Device ROOM AIR Blood Gas Inspired Oxygen 21 % MDM Medical Decision Making Medical Screen Exam Complete: Yes Emergency Medical Condition: Yes Medical Record Reviewed: Yes Interpretation(s) Vital Signs Date Time Temp Pulse Resp B/P (MAP) Pulse Ox O2 Delivery O2 Flow Rate FiO2 11/24/17 04:14 95 Nasal Cannula 4.00 11/24/17 04:07 98.5 133 24 133/75 (94) 92 Differential Diagnosis Acute asthma exacerbation, pneumonia, bronchitis, bronchospasm Narrative Course 22-year-old male who presents the emergency room for evaluation of asthma exacerbation which began prior to coming to the emergency room. During the course of the patients emergency department visit, the patients history, examination, and differential diagnosis were reviewed with the patient. The patient was placed on a potline monitor with oximetry and frequent blood pressure monitoring. The patient had an IV access obtained and blood work sent for analysis. The patient was initially provided IV Solu-Medrol, 3 DuoNeb's, IV fluids as well as IV magnesium. Vital Signs Date Time Temp Pulse Resp B/P (MAP) Pulse Ox O2 Delivery O2 Flow Rate FiO2 11/24/17 04:15 92 Room Air 11/24/17 04:14 95 Nasal Cannula 4.00 11/24/17 04:07 98.5 133 24 133/75 (94) 92 Patient initially 92% on room air, he is currently 95% on 4L NC. The patients laboratory studies were reviewed and remarkable for CBC & BMP Diagram 11/24/17 04:15 Calcium Level 9.5 Laboratory Tests Test 11/24/17 04:15 11/24/17 05:01 White Blood Count 13.1 TH/MM3 (4.0-11.0) Red Blood Count 4.91 MIL/MM3 (4.50-5.90) Hemoglobin 14.7 GM/DL (13.0-17.0) Hematocrit 44.0 % (39.0-51.0) Mean Corpuscular Volume 89.7 FL (80.0-100.0) Mean Corpuscular Hemoglobin 30.0 PG (27.0-34.0) Mean Corpuscular Hemoglobin Concent 33.4 % (32.0-36.0) Red Cell Distribution Width 12.5 % (11.6-17.2) Platelet Count 221 TH/MM3 (150-450) Mean Platelet Volume 8.1 FL (7.0-11.0) Neutrophils (%) (Auto) 71.3 % (16.0-70.0) Lymphocytes (%) (Auto) 16.8 % (9.0-44.0) Monocytes (%) (Auto) 5.4 % (0.0-8.0) Eosinophils (%) (Auto) 5.9 % (0.0-4.0) Basophils (%) (Auto) 0.6 % (0.0-2.0) Neutrophils # (Auto) 9.3 TH/MM3 (1.8-7.7) Lymphocytes # (Auto) 2.2 TH/MM3 (1.0-4.8) Monocytes # (Auto) 0.7 TH/MM3 (0-0.9) Eosinophils # (Auto) 0.8 TH/MM3 (0-0.4) Basophils # (Auto) 0.1 TH/MM3 (0-0.2) CBC Comment AUTO DIFF Differential Comment AUTO DIFF CONFIRMED Platelet Estimate NORMAL (NORMAL) Platelet Morphology Comment NORMAL (NORMAL) Red Cell Morphology Comment NORMAL (NORMAL) Blood Urea Nitrogen 8 MG/DL (7-18) Creatinine 1.10 MG/DL (0.60-1.30) Random Glucose 136 MG/DL (74-106) Calcium Level 9.5 MG/DL (8.5-10.1) Sodium Level 141 MEQ/L (136-145) Potassium Level 3.4 MEQ/L (3.5-5.1) Chloride Level 106 MEQ/L (98-107) Carbon Dioxide Level 28.8 MEQ/L (21.0-32.0) Anion Gap 6 MEQ/L (5-15) Estimat Glomerular Filtration Rate 82 ML/MIN (>89) Blood Gas Puncture Site RT RADIAL Blood Gas Patient Temperature 98.6 Blood Gas HCO3 24 mmol/L (22-26) Blood Gas Base Excess -0.6 mmol/L (-2-2) Blood Gas Oxygen Saturation 87 % (90-100) Arterial Blood pH 7.41 (7.380-7.420) Arterial Blood Partial Pressure CO2 38 mmHG (38-42) Arterial Blood Partial Pressure O2 55 mmHG (61-120) Arterial Blood Oxygen Content 16.6 Vol % (12.0-20.0) Arterial Blood Carboxyhemoglobin 1.5 % (0-4) Arterial Blood Methemoglobin 1.1 % (0-2) Blood Gas Hemoglobin 13.6 G/DL (12.0-16.0) Oxygen Delivery Device ROOM AIR Blood Gas Inspired Oxygen 21 % NOTE: abg was obtained on room air 15 minutues after 3 duonebs were given After 3 DuoNeb treatments, patient is 89% on room air, patient still continues to wheeze, another 3 nebulizer treatments are ordered. IV magnesium is currently being administered. Patient will require admission to the hospital for IV steroids as well as [id number] neb treatments. case reviewed with Dr. Friedman who accepts pt to her service Critical Care Narrative Aggregate critical care time was 45 minutes. Time to perform other separately billable procedures was not included in the critical care time. My time did not include minutes spent treating any other patients simultaneously or on activities that did not directly contribute to the patient's treatment. The services I provided to this patient were to treat and/or prevent clinically significant deterioration that could result in: , decompensation, deterioration I provided critical care services requiring my management, as noted below: Chart data review, documentation time, medication orders and management, vital sign assessments/reviewing monitor data, ordering and reviewing lab tests, ordering and interpreting/reviewing x-rays and diagnostic studies, care of the patient and discussion of the patient with the admitting physicians. Diagnosis Primary Impression: Hypoxia Additional Impression: Asthma exacerbation Qualified Codes: J45.51 - Severe persistent asthma with (acute) exacerbation Admitting Information Admitting Physician Requests: Admit Aspen Flores DO November 24, 2017 04:21
[2017-11-24 04:24] LABS: AUTOMATED NEUTROPHIL # 9.3 TH/MM3 (1.8-7.7); BASOPHIL # 0.1 TH/MM3 (0-0.2); BASOPHIL % 0.6 % (0.0-2.0); EOSINOPHIL # 0.8 TH/MM3 (0-0.4); EOSINOPHIL % 5.9 % (0.0-4.0); HEMOGLOBIN 14.7 GM/DL (13.0-17.0); LYMPH % 16.8 % (9.0-44.0); LYMPHOCYTE # 2.2 TH/MM3 (1.0-4.8); MEAN CELL VOLUME 89.7 FL (80.0-100.0); MEAN CORPUSCULAR HGB CONC 33.4 % (32.0-36.0); MEAN PLATELET VOLUME 8.1 FL (7.0-11.0); MONO % 5.4 % (0.0-8.0); MONOCYTE # 0.7 TH/MM3 (0-0.9); NEUT % 71.3 % (16.0-70.0); PLATELET COUNT 221 TH/MM3 (150-450); RED BLOOD COUNT 4.91 MIL/MM3 (4.50-5.90); RED CELL DISTRIBUTION WIDTH 12.5 % (11.6-17.2); WHITE BLOOD COUNT 13.1 TH/MM3 (4.0-11.0)
[2017-11-24 04:39] LABS: BICARBONATE 28.8 MEQ/L (21.0-32.0); CALCIUM 9.5 MG/DL (8.5-10.1)
[2017-11-24 04:43] LABS: CREATININE 1.1 MG/DL (0.60-1.30)
[2017-11-24] MEDS ORDERED: POTASSIUM CHLORIDE 10 MEQ CONTROLLED RELEASE TAB PO ONE (05:00)
--- NOTE | 2017-11-24 05:16 | RADRPT ---
EXAM DATE/TIME: 11/24/2017 04:22 [facility] COMPARISON: CHEST SINGLE AP, October 29, 2016, 6:53. INDICATIONS : Shortness of breath, difficulty breathing for 3 hours MEDICAL HISTORY : None. SURGICAL HISTORY : None. ENCOUNTER: Initial ACUITY: 1 day PAIN SCORE: 0/10 LOCATION: Bilateral chest FINDINGS: A single view of the chest demonstrates the lungs to be symmetrically aerated without evidence of mas s, infiltrate or effusion. The cardiomediastinal contours are unremarkable. Osseous structures are intact. Orthopedic plate involving the right clavicle. CONCLUSION: No acute disease. Juan Clinton Jr., MD on November 24, 2017 at 5:14 Board Certified Radiologist. This report was verified electronically.
[2017-11-24] MEDS ORDERED: SODIUM CHLORIDE 0.9% FLUSH 10 ML FLUSH IV FLUSH PRN (06:00)
[2017-11-24] MEDS ORDERED: methylPREDNISolone SOD SUCC 125 MG/2 ML VIAL IV PUSH SCH (06:00)
[2017-11-24] MEDS: RESP: ALBUTEROL 2.5 MG/IPRATROPIUM 0.5 MG NEB (SCH) NEB ×4 (07:57→20:07)
[2017-11-24] MEDS: methylPREDNISolone SOD SUCC 125 MG/2 ML VIAL IV PUSH SCH ×3 (08:16→21:10)
[2017-11-24] MEDS: SODIUM CHLORIDE 0.9% FLUSH 10 ML FLUSH IV FLUSH SCH ×2 (08:16→21:11)
[2017-11-24] MEDS: FAMOTIDINE 20 MG TAB PO SCH ×3 (10:00→21:00)
[2017-11-24] MEDS: RESP: ALBUTEROL 2.5 MG/IPRATROPIUM 0.5 MG NEB (PRN) NEB ×2 (10:23→14:03)
--- NOTE | 2017-11-24 10:59 | HHI.HP ---
[facility] Service [place] [facility] Primary Care Physician Brent Winter M.D. Admission Diagnosis Hypoxia, asthma exacerbation Diagnoses: Chief Complaint: Increased work of breathing similar to previous asthma exacerbations Travel History International Travel<30 Days: No Contact w/Intl Traveler <30 Da: No Traveled to Known Affected Are: No History of Present Illness This patient is a 22-year-old gentleman with asthma. He has had at least 6 hospital evaluations related to asthma exacerbations in the hospital in the last 12 months. He has never been intubated but has come to the hospital with increased work of breathing with poor response to his home albuterol nebulizers. Here he has gotten steroids and nebulizers and has felt better. He has significant hypoxemia on exam. He has denied any sick contacts or recent travel. At home he does not take steroids. He does take pro-air as well as albuterol nebs as needed. He has had some improvement here in the hospital and is recommended for further evaluation treatment due to acute hypoxemic respiratory failure secondary to asthma exacerbation. Review of Systems Constitutional: DENIES: Diaphoretic episodes, Fatigue, Fever, Weight gain, Weight loss, Chills, Dizziness, Change in appetite, Night Sweats Endocrine: DENIES: Heat/cold intolerance, Polydipsia, Polyuria, Polyphagia Eyes: DENIES: Blurred vision, Diplopia, Eye inflammation, Eye pain, Vision loss , Photosensitivity, Double Vision Ears, nose, mouth, throat: DENIES: Tinnitus, Hearing loss, Vertigo, Nasal discharge, Oral lesions, Throat pain, Hoarseness, Ear Pain, Running Nose, Epistaxis, Sinus Pain, Toothache, Odynophagia Respiratory: COMPLAINS OF: Cough, Wheezing, Shortness of breath, DENIES: Apneas , Snoring, Hemoptysis, Sputum production Cardiovascular: DENIES: Chest pain, Palpitations, Syncope, Dyspnea on Exertion , PND, Lower Extremity Edema, Orthopnea, Claudication Gastrointestinal: DENIES: Abdominal pain, Black stools, Bloody stools, Constipation, Diarrhea, Nausea, Vomiting, Difficulty Swallowing, Anorexia Genitourinary: DENIES: Sexual dysfunction, Urinary frequency, Urinary incontinence, Urgency, Hematuria, Dysuria, Nocturia, Penile Discharge, Testicular Pain, Testicular Swelling Integumentary: DENIES: Abnormal pigmentation, Nail changes, Pruritus, Rash Hematologic/lymphatic: DENIES: Bruising, Lymphadenopathy Immunologic/allergic: DENIES: Eczema, Urticaria Neurologic: DENIES: Abnormal gait, Headache, Localized weakness, Paresthesias, Seizures, Speech Problems, Tremor, Poor Balance Psychiatric: DENIES: Anxiety, Confusion, Mood changes, Depression, Hallucinations, Agitation, Suicidal Ideation, Homicidal Ideation, Delusions Except as stated in HPI: all other systems reviewed are Neg Past Family Social History Past Medical History Asthma Past Surgical History Left clavicle surgery Reported Medications Reviewed in the EMR Allergies: Coded Allergies: dextromethorphan (Verified Allergy, Intermediate, HIVES, 11/24/17) Active Ordered Medications Reviewed in the EMR Family History Family history of asthma Social History Patient quit tobacco about a month ago. 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00 11/24/17 04:14 95 Nasal Cannula 4.00 11/24/17 04:12 96 Nasal Cannula 4.00 11/24/17 04:10 92 21 11/24/17 04:07 98.5 133 24 133/75 (94) 92 Physical Exam GENERAL: This is a well-nourished, well-developed patient, sleepy SKIN: No rashes, ecchymoses or lesions. Cool and dry. HEAD: Atraumatic. Normocephalic. No temporal or scalp tenderness. EYES: Pupils equal round and reactive. Extraocular motions intact. No scleral icterus. No injection or drainage. ENT: Nose without bleeding, purulent drainage or septal hematoma. Throat without erythema, tonsillar hypertrophy or exudate. Uvula midline. Airway patent. NECK: Trachea midline. No JVD or lymphadenopathy. Supple, nontender, no meningeal signs. CARDIOVASCULAR: Regular rate and rhythm without murmurs, gallops, or rubs. RESPIRATORY: Bilateral rhonchi and wheezes GASTROINTESTINAL: Abdomen soft, non-tender, nondistended. No hepato-splenomegaly , or palpable masses. No guarding. MUSCULOSKELETAL: Extremities without clubbing, cyanosis, or edema. No joint tenderness, effusion, or edema noted. No calf tenderness. Negative Homans sign bilaterally. NEUROLOGICAL: Awake and alert. Cranial nerves II through XII intact. Motor and sensory grossly within normal limits. Five out of 5 muscle strength in all muscle groups. Normal speech. Laboratory Laboratory Tests Test 11/24/17 04:15 11/24/17 05:01 White Blood Count 13.1 Red Blood Count 4.91 Hemoglobin 14.7 Hematocrit 44.0 Mean Corpuscular Volume 89.7 Mean Corpuscular Hemoglobin 30.0 Mean Corpuscular Hemoglobin Concent 33.4 Red Cell Distribution Width 12.5 Platelet Count 221 Mean Platelet Volume 8.1 Neutrophils (%) (Auto) 71.3 Lymphocytes (%) (Auto) 16.8 Monocytes (%) (Auto) 5.4 Eosinophils (%) (Auto) 5.9 Basophils (%) (Auto) 0.6 Neutrophils # (Auto) 9.3 Lymphocytes # (Auto) 2.2 Monocytes # (Auto) 0.7 Eosinophils # (Auto) 0.8 Basophils # (Auto) 0.1 CBC Comment AUTO DIFF Differential Comment AUTO DIFF CONFIRMED Platelet Estimate NORMAL Platelet Morphology Comment NORMAL Red Cell Morphology Comment NORMAL Blood Urea Nitrogen 8 Creatinine 1.10 Random Glucose 136 Calcium Level 9.5 Sodium Level 141 Potassium Level 3.4 Chloride Level 106 Carbon Dioxide Level 28.8 Anion Gap 6 Estimat Glomerular Filtration Rate 82 Blood Gas Puncture Site RT RADIAL Blood Gas Patient Temperature 98.6 Blood Gas HCO3 24 Blood Gas Base Excess -0.6 Blood Gas Oxygen Saturation 87 Arterial Blood pH 7.41 Arterial Blood Partial Pressure CO2 38 Arterial Blood Partial Pressure O2 55 Arterial Blood Oxygen Content 16.6 Arterial Blood Carboxyhemoglobin 1.5 Arterial Blood Methemoglobin 1.1 Blood Gas Hemoglobin 13.6 Oxygen Delivery Device ROOM AIR Blood Gas Inspired Oxygen 21 Result Diagram: 11/24/17 0415 11/24/17 0415 Imaging Last Impressions Chest X-Ray 11/24/178 Signed Impressions: Service Date/Time: Friday, November 24, 2017 04:22 - CONCLUSION: No acute disease. MD Kadi Akers Jr. VTE Risk Assessment Kadi VTE Risk Assessment: No/Low Risk (score <= 1) Caprini Risk Assessment Model Point Value = 1 Point Value = 2 Point Value = 3 Point Value = 5 Age 41-60 Minor surgery BMI > 25 kg/m2 Swollen legs Varicose veins or History of unexplained or recurrent spontaneous Oral contraceptives or hormone replacement Sepsis (< 1 month) Serious lung disease, including pneumonia (< 1 month) Abnormal pulmonary function Acute myocardial infarction Congestive heart failure (< 1 month) History of inflammatory bowel disease Medical patient at bed rest Age 61-74 Arthroscopic surgery Major open surgery (> 45 min) Laparoscopic surgery (> 45 min) Malignancy Confined to bed (> 72 hours) Immobilizing plaster cast Central venous access Age >= 75 History of VTE Family history of VTE Factor V Leiden Prothrombin [id number] Lupus anticoagulant Anticardiolipin antibodies Elevated serum homocysteine Heparin-induced thrombocytopenia Other congenital or acquired thrombophilia Stroke (< 1 month) Elective arthroplasty Hip, pelvis, or leg fracture Acute spinal cord injury (< 1 month) Prophylaxis Regimen Total Risk Factor Score Risk Level Prophylaxis Regimen 0-1 Low Early ambulation 2 Moderate Order ONE of the following: *Sequential Compression Device (SCD) *Heparin 5000 units SQ BID 3-4 Higher Order ONE of the following medications: *Heparin 5000 units SQ TID *Enoxaparin/Lovenox 40 mg SQ daily (WT < 150 kg, CrCl > 30 mL/min) *Enoxaparin/Lovenox 30 mg SQ daily (WT < 150 kg, CrCl > 10-29 mL/min) *Enoxaparin/Lovenox 30 mg SQ BID (WT < 150 kg, CrCl > 30 mL/min) AND/OR *Sequential Compression Device (SCD) 5 or more Highest Order ONE of the following medications: *Heparin 5000 units SQ TID (Preferred with Epidurals) *Enoxaparin/Lovenox 40 mg SQ daily (WT < 150 kg, CrCl > 30 mL/min) *Enoxaparin/Lovenox 30 mg SQ daily (WT < 150 kg, CrCl > 10-29 mL/min) *Enoxaparin/Lovenox 30 mg SQ BID (WT < 150 kg, CrCl > 30 mL/min) AND *Sequential Compression Device (SCD) Assessment and Plan Problem List: (1) Acute asthma exacerbation ICD Code: J45.901 - Unspecified asthma with (acute) exacerbation Status: Acute Plan: Patient with acute hypoxemic respiratory failure due to uncontrolled severe and persistent chronic asthma Continue with IV steroids, neb bronchodilators Pulmonary consult pending due to the uncontrolled nature Code Status Full code Physician Certification 2 Midnight Certification Type: Admission for Inpatient Services Order for Inpatient Services The services are ordered in accordance with Medicare regulations or non- Medicare payer requirements, as applicable. In the case of services not specified as inpatient-only, they are appropriately provided as inpatient services in accordance with the 2-midnight benchmark. Estimated LOS (days): 3 3 days is the estimated time the patient will need to remain in the hospital, assuming treatment plan goals are met and no additional complications. Post-Hospital Plan: Wanda Mi MD November 24, 2017 10:59
[2017-11-24] MEDS ORDERED: MAGNESIUM SULFATE 1 GM PREMIX 100 ML IV ONE ×2 (13:00→14:30)
--- NOTE | 2017-11-24 14:36 | PD.CONS ---
[facility] Service Critical Care Medicine Consult Requested By Dr. Mathews Reason for Consult management of bronchospasm Primary Care Physician Brent Winter M.D. History of Present Illness This is a 22yM with history of poorly controlled asthma who presented with sudden onset shortness of breath. endoreses dry cough. denies chest pain. denies sick contacts. denies sputum production. denies fever, chills. denies n/v /c/d/abd pain. no other associated symptoms. states he does not have insurance and cannot pay for inhaled steroids or LABA meds. states he gets 1 inhaler before leaving the hospital and then when it runs out, uses prn albuterol instead. has been hospitalized at least once in the last year. multiple ER visits. has been out of any long-acting meds about 30 days now. admitted for asthma exacerbation, started on iv steroids, albuterol nebs, magnesium iv. worsening resp distress requiring face mask o2. critical care consulted for rapidly declining respiratory status. Review of Systems Constitutional: DENIES: Diaphoretic episodes, Fatigue, Fever, Weight gain, Weight loss, Chills Endocrine: DENIES: Heat/cold intolerance Eyes: DENIES: Blurred vision Ears, nose, mouth, throat: DENIES: Throat pain, Hoarseness, Running Nose Respiratory: COMPLAINS OF: Wheezing, Shortness of breath, DENIES: Apneas, Cough , Snoring, Hemoptysis, Sputum production Cardiovascular: DENIES: Chest pain, Palpitations, Syncope, Dyspnea on Exertion , PND, Lower Extremity Edema, Orthopnea, Claudication Gastrointestinal: DENIES: Abdominal pain, Black stools, Bloody stools, Constipation, Diarrhea, Nausea, Vomiting, Difficulty Swallowing Musculoskeletal: DENIES: Muscle aches, Back pain, Neck pain Neurologic: DENIES: Headache, Localized weakness Psychiatric: DENIES: Anxiety, Confusion Past Family Social History Allergies: Coded Allergies: dextromethorphan (Verified Allergy, Intermediate, HIVES, 11/24/17) Past Medical History Asthma Past Surgical History Left clavicle surgery Reported Medications Proair Hfa 8.5 GM Inh (Albuterol Sulfate) 90 Mcg/Act Aer 2 Puff INH Q4-6H PRN 108 mcg/actuation Albuterol Neb (Albuterol Sulfate) 2.5 Mg/3 Ml Neb 2.5 Mg NEB Q4HR NEB While awake Active Ordered Medications See MAR Family History Family history of asthma Social History Patient quit tobacco about a month ago. 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 Lives with his mother Physical Exam Vital Signs Vital Signs Date Time Temp Pulse Resp B/P (MAP) Pulse Ox O2 Delivery O2 Flow Rate FiO2 11/24/17 11:00 135 105/52 (69) 92 11/24/17 10:00 133 112/53 (72) 11/24/17 09:00 128 101/47 (65) 91 11/24/17 08:00 98.6 132 114/53 (73) 93 11/24/17 08:00 92 Nasal Cannula 5.00 11/24/17 07:45 11/24/17 07:02 94 Nasal Cannula 4.00 11/24/17 07:01 98.9 130 18 127/56 (79) 94 Nasal Cannula 4.00 11/24/17 05:57 133 22 119/60 (79) 94 Nasal Cannula 4.00 11/24/17 05:15 122 28 124/69 (87) 92 Aerosol Mask 11/24/17 05:04 125 26 93 Nasal Cannula 4.00 11/24/17 04:47 132 24 136/63 (87) 93 Aerosol Mask 11/24/17 04:45 133 28 89 Room Air 11/24/17 04:15 92 Room Air 11/24/17 04:15 129 28 135/75 (95) 93 Nasal Cannula 2.00 11/24/17 04:14 95 Nasal Cannula 4.00 11/24/17 04:12 96 Nasal Cannula 4.00 11/24/17 04:10 92 21 11/24/17 04:07 98.5 133 24 133/75 (94) 92 Physical Exam GENERAL: Young male, sitting up in bed, in respiratory distress HEENT: Normocephalic. Atraumatic. Pupils equal, round, reactive, conjugate. Mucous membranes are moist NECK: Trachea is midline. There is no JVD. CHEST: Tachypneic. Tripoding. Significant both inspiratory and expiratory wheezing. Diminished air entry in the bases. CARDIOVASCULAR: Tachycardic rate, regular rhythm. Sinus. ABDOMEN: Soft, nontender, nondistended. No guarding. MUSCULOSKELETAL: Pulses 2+. No peripheral edema. NEUROLOGICAL: RASS 0. CAM -. Follows commands. No focal deficits. Laboratory Laboratory Tests Test 11/24/17 04:15 5/18/18 05:01 11/24/17 12:20 White Blood Count 13.1 Red Blood Count 4.91 Hemoglobin 14.7 Hematocrit 44.0 Mean Corpuscular Volume 89.7 Mean Corpuscular Hemoglobin 30.0 Mean Corpuscular Hemoglobin Concent 33.4 Red Cell Distribution Width 12.5 Platelet Count 221 Mean Platelet Volume 8.1 Neutrophils (%) (Auto) 71.3 Lymphocytes (%) (Auto) 16.8 Monocytes (%) (Auto) 5.4 Eosinophils (%) (Auto) 5.9 Basophils (%) (Auto) 0.6 Neutrophils # (Auto) 9.3 Lymphocytes # (Auto) 2.2 Monocytes # (Auto) 0.7 Eosinophils # (Auto) 0.8 Basophils # (Auto) 0.1 CBC Comment AUTO DIFF Differential Comment AUTO DIFF CONFIRMED Platelet Estimate NORMAL Platelet Morphology Comment NORMAL Red Cell Morphology Comment NORMAL Blood Urea Nitrogen 8 Creatinine 1.10 Random Glucose 136 Calcium Level 9.5 Sodium Level 141 Potassium Level 3.4 Chloride Level 106 Carbon Dioxide Level 28.8 Anion Gap 6 Estimat Glomerular Filtration Rate 82 Blood Gas Puncture Site RT RADIAL RT RADIAL Blood Gas Patient Temperature 98.6 37.0 Blood Gas HCO3 24 18 Blood Gas Base Excess -0.6 -6.1 Blood Gas Oxygen Saturation 87 92 Arterial Blood pH 7.41 7.37 Arterial Blood Partial Pressure CO2 38 32 Arterial Blood Partial Pressure O2 55 67 Arterial Blood Oxygen Content 16.6 18.8 Arterial Blood Carboxyhemoglobin 1.5 1.1 Arterial Blood Methemoglobin 1.1 1.0 Blood Gas Hemoglobin 13.6 14.5 Oxygen Delivery Device ROOM AIR NASAL CANNULA Blood Gas Inspired Oxygen 21 Blood Gas Liter Flow 5 Result Diagram: 11/24/17 0415 11/24/17 0415 Imaging Last Impressions Chest X-Ray 11/24/17 0408 Signed Impressions: Service Date/Time: Friday, November 24, 2017 04:22 - CONCLUSION: No acute disease. Juan Clinton Jr., MD Assessment and Plan Assessment and Plan Assessment: 22-year-old male with severe acute asthma exacerbation and likely community-acquired viral tracheobronchitis. No role for empiric antibiotics with lack of sputum production and fever. Agree with nebs. Agree with IV steroids. I have added inhaled Spiriva. I have added additional IV magnesium as well as p.o. theophylline. In terms of respiratory failure, the patient is failing positive oxygen and will need noninvasive positive pressure ventilation. He remains critically ill without intervention with positive pressure ventilation, acutely decompensated to respiratory failure. I discussed his care at length with him and his mother. Specifically, I told him that he needs to find some method of obtaining chronic medicines to control his asthma as well as pulmonary outpatient follow-up. Active problems: Severe acute asthma exacerbation Acute hypoxic and hypercarbic respiratory failure requiring emergent noninvasive positive pressure ventilation Acute community-acquired viral tracheobronchitis Plan: Pulmonology consultation Additional magnesium IV Send mag level Check d-dimer: Low pretest probability, but sudden acute onset of symptoms will need to be ruled out. BiPAP IV steroids P.o. theophylline Spiriva Wean FiO2 for goal SPO2 greater than 90% Critical care will continue to follow. This patient remains critically ill with one or more organ systems which are or may become a threat to life. I have spent in excess of 32 minutes discontinuously in the care and management of this patient. This time is exclusive of procedures, and includes, but is not limited to, evaluation of the patient, review of the medical record, discussions with family, consultants, nursing staff, or respiratory therapy, and documentation in the medical record. Medardo Zuluaga MD November 24, 2017 14:36
[2017-11-24] MEDS ORDERED: LACTATED RINGER'S 1000 ML INJ 1,000 ML IV ONE (14:45)
[2017-11-24] MEDS ORDERED: THEOPHYLLINE ER 12 HR 300 MG TABCR PO ONE (15:00)
[2017-11-24] MEDS: TIOTROPIUM BROMIDE 18 MCG INH INH SCH (15:18)
[2017-11-24] MEDS ORDERED: LORazepam 2 MG/ML VIAL IV PUSH ONE (15:30)
[2017-11-24 17:37] LABS: BICARBONATE 19.4 MEQ/L (21.0-32.0); CALCIUM 9.8 MG/DL (8.5-10.1); CREATININE 1.3 MG/DL (0.60-1.30)
[2017-11-24] MEDS ORDERED: ETOMIDATE 20 MG/10 ML VIAL ONE (21:44)
[2017-11-24] MEDS ORDERED: PROPOFOL 500 MG/50 ML INJ 50 ML ONE ×2 (21:46→22:15)
[2017-11-24] MEDS ORDERED: MIDAZOLAM HCL 5 MG/ML VIAL (1 ML) ONE (22:02)
[2017-11-24] MEDS ORDERED: MIDAZOLAM HCL 2 MG/2 ML VIAL IV PUSH ONE (22:15)
[2017-11-24] MEDS ORDERED: MIDAZOLAM 100 MG/100 ML INJ 100 ML IV PRN (22:15)
--- NOTE | 2017-11-24 22:40 | RADRPT ---
EXAM DATE/TIME: 11/24/2017 22:03 [place] COMPARISON: CHEST SINGLE AP, November 24, 2017, 4:22. INDICATIONS : Post endotracheal tube placement. MEDICAL HISTORY : Asthma SURGICAL HISTORY : ORIF right clavicle ENCOUNTER: Subsequent ACUITY: 1 day PAIN SCORE: Non-responsive. LOCATION: Bilateral chest FINDINGS: ET tube is well placed with the tip 5.3 cm from the shelley. The NG tube tip is directed into the stom ach. The heart size is normal. The lungs are clear. There is a surgical plate at the right clavicle. CONCLUSION: ET tube in good position. Jacob Rodriguez MD on November 24, 2017 at 22:37 Board Certified Radiologist. This report was verified electronically.
[2017-11-24] MEDS: fentaNYL DRIP 250 ML IV PRN ×2 (22:50→23:24)
[2017-11-24] MEDS: PROPOFOL 1000 MG/100 ML INJ 100 ML IV PRN (23:27)
[2017-11-24] MEDS: MIDAZOLAM 50 MG/NS 50 ML DRIP Premix IV PRN (23:35)
[2017-11-24] MEDS ORDERED: ROCURONIUM INJ 50 MG/5 ML VIAL IV ONE (23:45)
[2017-11-25] VITALS (94 sets, daily range): BP systolic 75–163; BP diastolic 38–68; PULSE 58–146; RESP 11–36; TEMP 98.3–99; O2SAT 93–100
[2017-11-25] MEDS ORDERED: ROCURONIUM INJ 50 MG/5 ML VIAL IV ONE (00:15)
[2017-11-25] MEDS ORDERED: TERBUTALINE INJ 1 MG/ML AMP SQ PRN (00:15)
[2017-11-25] MEDS ORDERED: CISATRACURIUM INJ 100 MG in SODIUM CHLOR 0.9% 250 ML INJ 250 ML IV PRN (00:15)
[2017-11-25] MEDS ORDERED: CHLORHEXIDINE GLUCONATE 2 % 1 PACK (2 CLOTHS)(extra cloths) TOPICAL PRN (00:15)
[2017-11-25] MEDS: PHENYLEPHRINE INJ 40 MG in DEXTROSE 5% IN WATE 500 ML INJ 496 ML IV PRN ×6 (00:43→20:08)
[2017-11-25] MEDS: RESP: ALBUTEROL 2.5 MG/IPRATROPIUM 0.5 MG NEB (SCH) NEB ×7 (03:32→23:54)
--- NOTE | 2017-11-25 03:32 | PD ---
Data Data Last Documented VS Vital Signs Date Time Temp Pulse Resp B/P (MAP) Pulse Ox O2 Delivery O2 Flow Rate FiO2 11/24/17 05:15 122 28 124/69 (87) 92 Aerosol Mask 11/24/17 05:04 4.00 11/24/17 04:10 21 11/24/17 04:07 98.5 Orders Orders Basic Metabolic Panel (Bmp) (11/24/17 04:08) Complete Blood Count With Diff (11/24/17 04:08) Chest, Single Ap (11/24/17 04:08) Ecg Monitoring (11/24/17 04:08) Iv Access Insert/Monitor (11/24/17 04:08) Oximetry (11/24/17 04:08) Methylprednisolone So Succ Inj (Solumedr (11/24/17 04:15) Albuterol-Ipratropium Neb (Duoneb Neb) (11/24/17 04:15) Sodium Chloride 0.9% Flush (Ns Flush) (11/24/17 04:15) Magnesium Sulfate 1 Gm Premix (Magnesium (11/24/17 04:15) Sodium Chlor 0.9% 1000 Ml Inj (Ns 1000 M (11/24/17 04:15) Arterial Blood Gas (Abg) (11/24/17 ) Potassium Chloride (Kcl) (11/24/17 05:00) Albuterol-Ipratropium Neb (Duoneb Neb) (11/24/17 05:15) Admit Order (Ed Use Only) (11/24/17 05:51) Admit To Inpatient (11/24/17 ) Vital Signs (Adult) Q4H (11/24/17 05:50) Diet Regular Basic (11/24/17 Breakfast) Sodium Chloride 0.9% Flush (Ns Flush) (11/24/17 09:00) Sodium Chloride 0.9% Flush (Ns Flush) (11/24/17 06:00) Albuterol-Ipratropium Neb (Duoneb Neb) (11/24/17 08:00) Albuterol-Ipratropium Neb (Duoneb Neb) (11/24/17 06:00) Basic Metabolic Panel (Bmp) (11/25/17 06:00) Complete Blood Count With Diff (11/25/17 06:00) Resp Oxygen Michelet C Titrat 1-4 L (11/24/17 ) Methylprednisolone So Succ Inj (Solumedr (11/24/17 06:00) Inpatient Certification (11/24/17 ) Labs Laboratory Tests Test 11/24/17 04:15 11/24/17 05:01 White Blood Count 13.1 TH/MM3 Red Blood Count 4.91 MIL/MM3 Hemoglobin 14.7 GM/DL Hematocrit 44.0 % Mean Corpuscular Volume 89.7 FL Mean Corpuscular Hemoglobin 30.0 PG Mean Corpuscular Hemoglobin Concent 33.4 % Red Cell Distribution Width 12.5 % Platelet Count 221 TH/MM3 Mean Platelet Volume 8.1 FL Neutrophils (%) (Auto) 71.3 % Lymphocytes (%) (Auto) 16.8 % Monocytes (%) (Auto) 5.4 % Eosinophils (%) (Auto) 5.9 % Basophils (%) (Auto) 0.6 % Neutrophils # (Auto) 9.3 TH/MM3 Lymphocytes # (Auto) 2.2 TH/MM3 Monocytes # (Auto) 0.7 TH/MM3 Eosinophils # (Auto) 0.8 TH/MM3 Basophils # (Auto) 0.1 TH/MM3 CBC Comment AUTO DIFF Differential Comment AUTO DIFF CONFIRMED Platelet Estimate NORMAL Platelet Morphology Comment NORMAL Red Cell Morphology Comment NORMAL Blood Urea Nitrogen 8 MG/DL Creatinine 1.10 MG/DL Random Glucose 136 MG/DL Calcium Level 9.5 MG/DL Sodium Level 141 MEQ/L Potassium Level 3.4 MEQ/L Chloride Level 106 MEQ/L Carbon Dioxide Level 28.8 MEQ/L Anion Gap 6 MEQ/L Estimat Glomerular Filtration Rate 82 ML/MIN Blood Gas Puncture Site RT RADIAL Blood Gas Patient Temperature 98.6 Blood Gas HCO3 24 mmol/L Blood Gas Base Excess -0.6 mmol/L Blood Gas Oxygen Saturation 87 % Arterial Blood pH 7.41 Arterial Blood Partial Pressure CO2 38 mmHG Arterial Blood Partial Pressure O2 55 mmHG Arterial Blood Oxygen Content 16.6 Vol % Arterial Blood Carboxyhemoglobin 1.5 % Arterial Blood Methemoglobin 1.1 % Blood Gas Hemoglobin 13.6 G/DL Oxygen Delivery Device ROOM AIR Blood Gas Inspired Oxygen 21 % MDM Medical Record Reviewed: Yes Supervised Visit with ERICK: No Narrative Course I was asked by the trailer truck driver to evaluate Mr. Ojeda for his asthma exacerbation in the ICU and intubate patient if necessary. Patient was hypoxic with increased work of breathing, patient required intubation while in the ICU. After informed consent with patient, patient was intubated using an 8.0 ET tube. Patient tolerated procedure without difficulty. X-ray confirmed ET tube in position. Last Impressions Chest X-Ray 11/24/17 0408 Signed Impressions: Service Date/Time: Friday, November 24, 2017 04:22 - CONCLUSION: No acute disease. Juan Clinton Jr., MD Chest X-Ray 11/24/17 0000 Signed Impressions: Service Date/Time: Friday, November 24, 2017 22:03 - CONCLUSION: ET tube in good position. MD Dr. Jacob Roland will place orders for vent settings as well as for sedation Procedures Procedure Narrative After the risks and benefits were discussed the following procedure was performed: INTUBATION: The patient was put in optimal position for the procedure. Rapid sequence intubation was initiated by me using 20 milligrams of etomidate IV and 125 milligrams of succinylcholine IV. The patient was intubated with a 8.0 cuffed endotracheal tube. Tube placement was confirmed by visualization of the tube and balloon passing through the cords, capnometry and subsequent chest x-ray. Breath sounds were equal and well aerated bilaterally postintubation. No breath sounds over stomach. Patient tolerated procedure well. Diagnosis Primary Impression: Hypoxia Additional Impression: Asthma exacerbation Qualified Codes: J45.51 - Severe persistent asthma with (acute) exacerbation Aspen Flores DO November 25, 2017 03:32
[2017-11-25] MEDS: CHLORHEXIDINE GLUCONATE 2 % 1 PACK (2 CLOTHS)(taper/protocol) TOPICAL SCH (04:00)
[2017-11-25] MEDS: methylPREDNISolone SOD SUCC 125 MG/2 ML VIAL IV PUSH SCH ×4 (05:35→21:15)
--- NOTE | 2017-11-25 06:31 | HHI.CCPN ---
Subjective Remarks/Hospital Course This is a 22yM with history of poorly controlled asthma who presented with sudden onset shortness of breath. endoreses dry cough. denies chest pain. denies sick contacts. denies sputum production. denies fever, chills. denies n/v /c/d/abd pain. no other associated symptoms. states he does not have insurance and cannot pay for inhaled steroids or LABA meds. states he gets 1 inhaler before leaving the hospital and then when it runs out, uses prn albuterol instead. has been hospitalized at least once in the last year. multiple ER visits. has been out of any long-acting meds about 30 days now. admitted for asthma exacerbation, started on iv steroids, albuterol nebs, magnesium iv. worsening resp distress requiring face mask o2. critical care consulted for rapidly declining respiratory status. Subjective: 11/25 On Bipap 15/5 50% overnight but had increased WOB necessitating intubation. Difficult to sedate and achieve vent synchrony resulting in respiratory acidemia. . Now on propofol 20 mcg/kg/min, fentanyl 100 mcg, Versed 5 mg/hr, Nimbex. Neosynephrine 40 mcg/min. Multiple vent changes overnight and respiratory acidemia persists on ABG this morning. Objective Vital Signs Date Time Temp Pulse Resp B/P (MAP) Pulse Ox O2 Delivery O2 Flow Rate FiO2 11/25/17 05:15 110 18 105/52 (69) 100 11/25/17 04:40 50 11/25/17 04:00 98.8 11/24/17 08:00 Nasal Cannula 5.00 Intake and Output 11/25/17 11/25/17 11/26/17 08:00 16:00 00:00 Intake Total 1000 ml Balance 1000 ml Result Diagram: 11/24/17 0415 11/24/17 1458 Other Results Microbiology Date/Time Source Procedure Growth Status 11/24/17 23:01 Nasopharyngeal Respiratory Syncytial Virus Ag - Final NEGATIVE FOR RSV ANTIGEN... Complete Laboratory Tests Test 11/24/17 12:20 11/24/17 23:40 11/25/17 01:44 11/25/17 04:25 Blood Gas Puncture Site RT RADIAL RT RADIAL RT RADIAL RT RADIAL Blood Gas Patient Temperature 37.0 37.0 37.0 37.0 Blood Gas HCO3 18 mmol/L (22-26) 27 mmol/L (22-26) 28 mmol/L (22-26) 27 mmol/L (22-26) Blood Gas Base Excess -6.1 mmol/L (-2-2) -0.9 mmol/L (-2-2) -0.1 mmol/L (-2-2) 0.2 mmol/L (-2-2) Blood Gas Oxygen Saturation 92 % (90-100) 91 % (90-100) 94 % (90-100) 97 % ( 90-100) Arterial Blood pH 7.37 (7.380-7.420) 7.14 (7.380-7.420) 7.13 (7.380-7.420) 7.25 (7.380-7.420) Arterial Blood Partial Pressure CO2 32 mmHg (38-42) 84 mmHg (38-42) 89 mmHg (38-42) 63 mmHg (38-42) Arterial Blood Partial Pressure O2 67 mmHg (61-120) 84 mmHg (61-120) 98 mmHg (61-120) 114 mmHg (61-120) Arterial Blood Oxygen Content 18.8 Vol % (12.0-20.0) 19.1 Vol % (12.0-20.0) 19.3 Vol % (12.0-20.0) 18.4 Vol % (12.0-20.0) Arterial Blood Carboxyhemoglobin 1.1 % (0-4) 0.6 % (0-4) 0.8 % (0-4) 0.9 % (0-4) Arterial Blood Methemoglobin 1.0 % (0-2) 1.3 % (0-2) 1.5 % (0-2) 1.0 % (0-2) Blood Gas Hemoglobin 14.5 G/DL (12.0-16.0) 14.8 G/DL (12.0-16.0) 14.6 G/DL (12.0-16.0) 13.4 G/DL (12.0-16.0) Oxygen Delivery Device NASAL CANNULA VENTILATOR VENTILATOR VENTILATOR Blood Gas Liter Flow 5 L/M Blood Gas Ventilator Setting PC/AC IP 23/RR12/ PC/AC IP25/RR16/ PRVC/AC 16/600/5PEEP Blood Gas Inspired Oxygen 50 % 50 % 50 % Test 11/25/17 06:02 Blood Gas Puncture Site RT BRACHIAL Blood Gas Patient Temperature 37.0 Blood Gas HCO3 28 mmol/L (22-26) Blood Gas Base Excess 1.6 mmol/L (-2-2) Blood Gas Oxygen Saturation 96 % (90-100) Arterial Blood pH 7.28 (7.380-7.420) Arterial Blood Partial Pressure CO2 60 mmHg (38-42) Arterial Blood Partial Pressure O2 102 mmHg (61-120) Arterial Blood Oxygen Content 18.7 Vol % (12.0-20.0) Arterial Blood Carboxyhemoglobin 1.0 % (0-4) Arterial Blood Methemoglobin 1.2 % (0-2) Blood Gas Hemoglobin 13.8 G/DL (12.0-16.0) Oxygen Delivery Device VENTILATOR Blood Gas Ventilator Setting PRVC/AC 18/600/5PEEP Blood Gas Inspired Oxygen 50 % Imaging Last Impressions Chest X-Ray 11/24/17 0408 Signed Impressions: Service Date/Time: Friday, November 24, 2017 04:22 - CONCLUSION: No acute disease. Juan Clinton Jr., MD Objective Remarks GENERAL: Well-nourished, well-developed patient who is orotracheally intubated and has been sedated and placed on a paralytic. SKIN: Warm and dry, well perfused. HEAD: Atraumatic. Normocephalic. EYES: Pupils equal and round, 2mm and reactive bilaterally . No scleral icterus. No injection or drainage. ENT: No nasal bleeding or discharge. Mucous membranes pink and moist. NECK: Trachea midline. No JVD. CARDIOVASCULAR: Tachycardic, regular, sinus tach on the monitor with rate in the 120s. No wheezes rales or rhonchi. RESPIRATORY: Orotracheally intubated. Bilateral expiratory wheeze. Mild air trapping noted on ventilator waveforms due to autopeep, improved with increase PEEP to 8 GASTROINTESTINAL: Abdomen soft, non-tender, nondistended. Bowel sounds present. : Bui in place with light yellow urine output per MUSCULOSKELETAL: Extremities without clubbing, cyanosis, or edema. NEUROLOGICAL: Moving hands and lifting arms up slightly off the bed and vent dyssynchrony despite sedation and nimbex, resolved after Versed. A/P Assessment and Plan Assessment: 22-year-old male with severe acute asthma exacerbation and likely community-acquired viral tracheobronchitis. On nebs and IV and inhaled steroids. Increased WOB on Bipap and was intubated. I have added inhaled Spiriva. I have added additional IV magnesium as well as p.o. theophylline. In terms of respiratory failure, the patient is failing positive oxygen and will need noninvasive positive pressure ventilation. He remains critically ill without intervention with positive pressure ventilation, acutely decompensated to respiratory failure. I discussed his care at length with him and his mother. Specifically, I told him that he needs to find some method of obtaining chronic medicines to control his asthma as well as pulmonary outpatient follow-up. Active problems: NEURO: Sedation with propofol, fentanyl, Versed. Will add Versed pushes which should be administered as needed for tachycardia/hypertension or other evidence of awareness while on a paralytic. Continue Nimbex for now, but hopefully discontinue soon when respiratory condition improves. RESP: Status asthmaticus Acute hypoxemic and hypercapnic respiratory failure DuoNeb every 4 hours, albuterol every 2 hours as needed Solu-Medrol 60 mg IV every 6 hours Budesonide 0.5 nebs every 12 hours Spiriva 18 mcg inhaled daily Adjust vent to increase PEEP to 8 SBT when respiratory condition improves. CV: Hypotension, likely secondary to sedation and hypovolemia High insensible losses due to respiratory failure. LR bolus 1 L now and continue LR 100 L/h Phenylephrine 40 mcg/min, wean as tolerated GI: OG tube in place. Initiate tube feeds when respiratory status stabilized, preferably when paralytic off. FEN/RENAL: Acute hypokalemia resolved Bui in place. Monitor intake and output. Monitor electrolytes. Replace electrolytes as indicated per ICU electrolyte placement protocol Received magnesium 1 g IV 11/24 ID: RSV negative Follow-up blood and sputum culture Azithromycin 500 mg IV daily HEME: D dimer 0.23 ENDO: Acute hyperglycemia, likely secondary to steroids/stress reaction Monitor bedside glucose every 6 hours and administer low-dose insulin sliding scale as indicated. PROPH: SCD/ Lovenox 40 mg subcut daily for DVT prophylaxis. Famotidine 20 p.o. twice daily for stress ulcer prophylaxis. ACCESS: PIV x4 providing adequate access at this time. FULL CODE Mother updated at bedside in detail. This patient remains critically ill with one or more organ systems which are or may become a threat to life. I have spent in excess of 30 minutes discontinuously in the care and management of this patient. This time is exclusive of procedures, and includes, but is not limited to, evaluation of the patient, review of the medical record, discussions with family, consultants, nursing staff, or respiratory therapy, and documentation in the medical record. Courtney De Jesus MD November 25, 2017 06:31
[2017-11-25] MEDS: MIDAZOLAM 50 MG/NS 50 ML DRIP Premix IV PRN (06:33)
[2017-11-25] MEDS ORDERED: MIDAZOLAM HCL 5 MG/ML VIAL (1 ML) ONE (06:33)
[2017-11-25] MEDS ORDERED: MIDAZOLAM HCL 2 MG/2 ML VIAL IV PUSH PRN (07:00)
[2017-11-25] MEDS ORDERED: LACTATED RINGER'S 1000 ML INJ 1,000 ML IV ONE (07:00)
[2017-11-25] MEDS ORDERED: POTASSIUM CHLORIDE 25 MEQ EFFERVESCENT TAB PO PRN (07:15)
[2017-11-25] MEDS ORDERED: GLUCAGON 1 MG/ML VIAL OTHER PRN (07:15)
[2017-11-25] MEDS ORDERED: POTASSIUM PHOSPHATE MONOBASIC 500 MG TAB PO/TUBE PRN (07:15)
[2017-11-25] MEDS ORDERED: POTASSIUM PHOSPHATE INJ 30 MMOL in SODIUM CHLOR 0.9% 250 ML INJ 250 ML IV PRN (07:15)
[2017-11-25] MEDS ORDERED: SODIUM PHOSPHATE INJ 30 MMOL in SODIUM CHLOR 0.9% 250 ML INJ 240 ML IV PRN (07:15)
[2017-11-25] MEDS ORDERED: MAGNESIUM SULFATE INJ 4 GM in SODIUM CHLORIDE 0.9% INJ 92 ML IV PRN (07:15)
[2017-11-25] MEDS ORDERED: POTASSIUM CHLOR 20 MEQ PREMIX 100 ML IV PRN ×2 (07:15)
[2017-11-25] MEDS ORDERED: MAGNESIUM OXIDE 400 MG TAB PO PRN (07:15)
[2017-11-25] MEDS ORDERED: MAGNESIUM SULFATE INJ 2 GM in SODIUM CHLORIDE 0.9% INJ 96 ML IV PRN (07:15)
[2017-11-25] MEDS ORDERED: POTASSIUM CHLOR 40 MEQ PREMIX 100 ML IV PRN ×2 (07:15)
[2017-11-25] MEDS ORDERED: POTASSIUM PHOSPHATE MONOBASIC 500 MG TAB PO PRN (07:15)
[2017-11-25] MEDS ORDERED: DEXTROSE 50% IN WATER 50 ML VIAL(D50) IV PUSH PRN (07:15)
[2017-11-25 07:31] LABS: BASOPHIL # 0.1 TH/MM3 (0-0.2); BASOPHIL % 0.2 % (0.0-2.0); EOSINOPHIL % 0.1 % (0.0-4.0); HEMATOCRIT 40.5 % (39.0-51.0); HEMOGLOBIN 14.1 GM/DL (13.0-17.0); LYMPH % 4.1 % (9.0-44.0); LYMPHOCYTE # 1.3 TH/MM3 (1.0-4.8); MEAN CELL VOLUME 90.1 FL (80.0-100.0); MEAN CORPUSCULAR HEMOGLOBIN 31.5 PG (27.0-34.0); MEAN CORPUSCULAR HGB CONC 34.9 % (32.0-36.0); MEAN PLATELET VOLUME 8.6 FL (7.0-11.0); MONO % 6.6 % (0.0-8.0); MONOCYTE # 2.1 TH/MM3 (0-0.9); PLATELET COUNT 331 TH/MM3 (150-450); RED BLOOD COUNT 4.49 MIL/MM3 (4.50-5.90); RED CELL DISTRIBUTION WIDTH 13.4 % (11.6-17.2); WHITE BLOOD COUNT 31.5 TH/MM3 (4.0-11.0)
[2017-11-25 07:41] LABS: BICARBONATE 28.3 MEQ/L (21.0-32.0); CALCIUM 9.1 MG/DL (8.5-10.1); CREATININE 1.3 MG/DL (0.60-1.30)
[2017-11-25] MEDS: RESP: BUDESONIDE 0.5 MG/2 ML NEB NEB SCH ×2 (08:03→20:12)
[2017-11-25 08:15] LABS: BANDS 8 % (0-6); LYMPHOCYTES 2 % (9-44); MONOCYTES 7 % (0-8); NEUTROPHIL # MANUAL DIFF 28.7 TH/MM3 (1.8-7.7); POLYS (SEG NEUTROPHILS) 83 % (16-70)
[2017-11-25] MEDS: AZITHROMYCIN INJ 500 MG in SODIUM CHLOR 0.9% 250 ML INJ 250 ML IV SCH (08:31)
[2017-11-25] MEDS: FAMOTIDINE 20 MG TAB PO SCH ×2 (08:32→20:10)
[2017-11-25] MEDS: CHLORHEXIDINE 0.12% (ORAL KIT) 15 ML CUP MT SCH ×2 (08:35→19:48)
[2017-11-25] MEDS: LACTATED RINGER'S 1000 ML INJ 1,000 ML IV SCH ×3 (08:43→20:09)
[2017-11-25] MEDS: TIOTROPIUM BROMIDE 18 MCG INH INH SCH (09:00)
[2017-11-25] MEDS: SODIUM CHLORIDE 0.9% FLUSH 10 ML FLUSH IV FLUSH SCH ×2 (09:00→20:10)
[2017-11-25] MEDS: INSULIN ASPART SUPPLEMENTAL SCALE SQ SCH ×3 (10:23→19:48)
--- NOTE | 2017-11-25 12:03 | RADRPT ---
EXAM DATE/TIME: 11/25/2017 11:45 [facility] COMPARISON: CHEST SINGLE AP, November 24, 2017, 22:03. INDICATIONS : Respiratory failure MEDICAL HISTORY : Asthma SURGICAL HISTORY : ORIF right clavicle ENCOUNTER: Subsequent ACUITY: 2 days PAIN SCORE: Non-responsive. LOCATION: Bilateral chest FINDINGS: Stable ETT and NGT. No new focal pleural-parenchymal opacities. Cardiomediastinal contours are stable . Remainder of exam is unchanged. CONCLUSION: 1. Stable ETT and NGT. 2. No acute cardiopulmonary disease. Estevan Muller MD on November 25, 2017 at 12:00 Board Certified Radiologist. This report was verified electronically.
[2017-11-25] MEDS: ENOXAPARIN SODIUM 40 MG/0.4 ML SYRINGE SQ SCH (12:46)
[2017-11-25] MEDS: cefTRIAXone INJ 1,000 MG in SODIUM CHLORIDE 0.9% INJ 100 ML IV SCH (12:46)
[2017-11-25 13:53] LABS: BILIRUBIN, URINE NEG (NEG); BLOOD, URINE NEG (NEG); GLUCOSE,URINE NEG (NEG); KETONE, URINE NEG (NEG); NITRITE,URINE NEG (NEG); PH, URINE 5.5 (5.0-8.5); URINE COLOR YELLOW (YELLW/STRAW); URINE LEUKOCYTE ESTERASE NEG (NEG)
[2017-11-25 14:02] LABS: RBC, URINE 0-3 /hpf (0-3); WBC, URINE 0-2 /hpf (0-5)
--- NOTE | 2017-11-25 14:02 | EKG ---
Date Performed: 11/24/2017 Time Performed: 12:14:07 PTAGE: 22 years EKG: SINUS TACHYCARDIA ABNORMAL RHYTHM ECG NO PREVIOUS TRACING DOCTOR: Peter Luna Interpretating Date/Time 11/25/2017 13:59:57
[2017-11-25 14:03] LABS: AMORPHOUS SEDIMENT, URINE SMALL
[2017-11-25] MEDS: PROPOFOL 1000 MG/100 ML INJ 100 ML IV PRN (15:44)
[2017-11-25] MEDS: fentaNYL DRIP 250 ML IV PRN (16:06)
--- NOTE | 2017-11-25 19:20 | MB ---
cc: Alvin Esquivel MD, [place] W MD DATE: 11/25/2017 REASON FOR CONSULTATION: Status asthmaticus, is presently sedated, ventilated. History obtainable from the record. HISTORY OF PRESENT ILLNESS: The patient is 22 years of age, has known history of bronchial asthma with acute onset worsening shortness of breath, a dry cough without fever, chills or hemoptysis. The patient has become progressively worse, requiring intubation and mechanical ventilation. Seen by critical care, intubated, presently sedated on ventilatory support. PAST MEDICAL HISTORY: Bronchial asthma, had some form of surgery on his left clavicle. MEDICATIONS AT HOME: Albuterol p.r.n. by inhaler nebulizer. ALLERGIES: DEXTROMETHORPHAN . FAMILY HISTORY: Positive for asthma. SOCIAL HISTORY: The patient used to smoke per his chart. He stopped a month ago. 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 Drinks alcohol socially, marijuana daily. Lives with his mother. REVIEW OF SYSTEMS: A 12-point review of system as per HPI and past history, otherwise negative. Not obtainable from the patient at present. PHYSICAL EXAMINATION: VITAL SIGNS: Temperature 98, pulse 100, respiration 20, blood pressure 120/60. HEENT: Unremarkable. Eyes without icterus. NECK: Without adenopathy or thyroid enlargement. Central trachea. CHEST: Few scattered wheezes bilaterally. HEART: PMI distant. S1, S2 audible. No murmur, no rub. ABDOMEN: Lax. Bowel sounds are audible. EXTREMITIES: No clubbing, cyanosis or edema. LABORATORY DATA: White count 13,000, hemoglobin 14, hematocrit 40, platelets 331,000. Sodium 137, potassium 5.4, BUN 13, creatinine 1.3. ABG this a.m. pH 7.33, PCO2 of 53, pO2 of 123. D. dimer 0.23. IMPRESSION: Status asthmaticus presently on ventilatory support. PLAN: The patient is sedated and mechanically ventilated, which obviously will be continued until the patient's condition stabilizes then the weaning process initiated. Empiric antibiotic therapy has been initiated and appropriately so. His chest x-ray is without acute infiltrates. Bronchodilator therapy will be continued together with IV steroid therapy. We will follow the course along with you and depending on progress proceed further. I do thank you for asking me to partake in Mr. Emanuel's care. MD IRAM Pennington/ , 06:39 PM , 07:19 PM
[2017-11-26] VITALS (115 sets, daily range): BP systolic 81–141; BP diastolic 41–83; PULSE 51–100; RESP 13–40; TEMP 97.9–98.7; O2SAT 93–100
[2017-11-26] MEDS: cefTRIAXone INJ 1,000 MG in SODIUM CHLORIDE 0.9% INJ 100 ML IV SCH ×2 (00:25→13:40)
[2017-11-26] MEDS: PROPOFOL 1000 MG/100 ML INJ 100 ML IV PRN ×4 (00:27→20:11)
[2017-11-26] MEDS: INSULIN ASPART SUPPLEMENTAL SCALE SQ SCH ×4 (03:06→19:58)
[2017-11-26] MEDS: methylPREDNISolone SOD SUCC 125 MG/2 ML VIAL IV PUSH SCH ×3 (03:07→15:44)
[2017-11-26] MEDS: PHENYLEPHRINE INJ 40 MG in DEXTROSE 5% IN WATE 500 ML INJ 496 ML IV PRN ×6 (03:08→20:42)
[2017-11-26] MEDS: LACTATED RINGER'S 1000 ML INJ 1,000 ML IV SCH (03:10)
[2017-11-26] MEDS: CHLORHEXIDINE GLUCONATE 2 % 1 PACK (2 CLOTHS)(taper/protocol) TOPICAL SCH (03:12)
[2017-11-26] MEDS: RESP: ALBUTEROL 2.5 MG/IPRATROPIUM 0.5 MG NEB (SCH) NEB ×2 (03:57→07:39)
[2017-11-26] MEDS ORDERED: DEXMEDETOMIDINE INJ 200 MCG in SODIUM CHLORIDE 0.9% INJ 50 ML IV PRN (07:00)
--- NOTE | 2017-11-26 07:00 | HHI.CCPN ---
Subjective Remarks/Hospital Course This is a 22yM with history of poorly controlled asthma who presented with sudden onset shortness of breath. endoreses dry cough. denies chest pain. denies sick contacts. denies sputum production. denies fever, chills. denies n/v /c/d/abd pain. no other associated symptoms. states he does not have insurance and cannot pay for inhaled steroids or LABA meds. states he gets 1 inhaler before leaving the hospital and then when it runs out, uses prn albuterol instead. has been hospitalized at least once in the last year. multiple ER visits. has been out of any long-acting meds about 30 days now. admitted for asthma exacerbation, started on iv steroids, albuterol nebs, magnesium iv. worsening resp distress requiring face mask o2. critical care consulted for rapidly declining respiratory status. 11/25 On Bipap 15/5 50% overnight but had increased WOB necessitating intubation. Difficult to sedate and achieve vent synchrony resulting in respiratory acidemia. . Now on propofol 20 mcg/kg/min, fentanyl 100 mcg, Versed 5 mg/hr, Nimbex. Neosynephrine 40 mcg/min. Multiple vent changes overnight and respiratory acidemia persists on ABG this morning. Subjective: 11/26 Was able to tolerate discontinuation of Nimbex yesterday early afternoon. Sedated on propofol 10, fentanyl 50 mcg/hr, versed 3 mg/hr. Awakens to voice on current sedation, gets agitated when sedation reduced but is apneic on current sedation so will try Precedex to facilitate CPAP trials. Afebrile. Objective Vital Signs Date Time Temp Pulse Resp B/P (MAP) Pulse Ox O2 Delivery O2 Flow Rate FiO2 11/26/17 06:01 60 17 107/52 (70) 96 11/26/17 04:13 40 11/26/17 04:01 98.3 11/24/17 08:00 Nasal Cannula 5.00 Intake and Output 11/26/17 11/26/17 11/27/17 08:00 16:00 00:00 Intake Total 2259 ml Output Total 1450 ml Balance 809 ml Result Diagram: 11/25/17 0610 11/25/17 0610 Other Results Microbiology Date/Time Source Procedure Growth Status 11/24/17 23:01 Nasopharyngeal Respiratory Syncytial Virus Ag - Final NEGATIVE FOR RSV ANTIGEN... Complete Laboratory Tests Test 11/25/17 11:07 11/26/17 05:45 Blood Gas Puncture Site RT BRACHIAL RT RADIAL Blood Gas Patient Temperature 37.0 37.0 Blood Gas HCO3 27 mmol/L (22-26) 30 mmol/L (22-26) Blood Gas Base Excess 1.6 mmol/L (-2-2) 4.7 mmol/L (-2-2) Blood Gas Oxygen Saturation 97 % (90-100) 96 % (90-100) Arterial Blood pH 7.33 (7.380-7.420) 7.38 (7.380-7.420) Arterial Blood Partial Pressure CO2 53 mmHg (38-42) 51 mmHg (38-42) Arterial Blood Partial Pressure O2 123 mmHg (61-120) 108 mmHg (61-120) Arterial Blood Oxygen Content 17.3 Vol % (12.0-20.0) 16.6 Vol % (12.0-20.0) Arterial Blood Carboxyhemoglobin 1.2 % (0-4) 1.4 % (0-4) Arterial Blood Methemoglobin 1.2 % (0-2) 1.4 % (0-2) Blood Gas Hemoglobin 12.6 G/DL (12.0-16.0) 12.2 G/DL (12.0-16.0) Oxygen Delivery Device VENTILATOR VENTILATOR Blood Gas Ventilator Setting PRVC/AC PRVC/AC Blood Gas Inspired Oxygen 50 % 40 % Imaging Last Impressions Chest X-Ray 11/24/17 0408 Signed Impressions: Service Date/Time: Friday, November 24, 2017 04:22 - CONCLUSION: No acute disease. Juan Clinton Jr., MD Objective Remarks GENERAL: Well-nourished, well-developed patient who is orotracheally intubated. He is on sedation but opens his eyes to voice and follows commands, reaches for ETT. SKIN: Warm and dry, well perfused. HEAD: Atraumatic. Normocephalic. EYES: Pupils equal and round, 2mm and reactive bilaterally . No scleral icterus. No injection or drainage. ENT: No nasal bleeding or discharge. Mucous membranes pink and moist. Full kelly. NECK: Trachea midline. No JVD. CARDIOVASCULAR: rrr no mrg. . RESPIRATORY: Orotracheally intubated. Air movement is much improved but there is slight bilateral expiratory wheeze. No rales, not a lot of secretions with suctioning. GASTROINTESTINAL: Abdomen soft, non-tender, nondistended. Bowel sounds present. : Bui in place with light yellow urine output MUSCULOSKELETAL: Extremities without clubbing, cyanosis, or edema. NEUROLOGICAL: Eyes open, follows commands. A/P Assessment and Plan Active problems: NEURO: Sedation with propofol, fentanyl, Versed. Nimbex discontinued 11/25. Precedex while on CPAP. RESP: Status asthmaticus Acute hypoxemic and hypercapnic respiratory failure DuoNeb every 4 hours, albuterol every 2 hours as needed Solu-Medrol 60 mg IV every 6 hours Budesonide 0.5 nebs every 12 hours Spiriva 18 mcg inhaled daily PRVC, PEEP to 8 SBT today and will extubate if tolerated. CV: Hypotension, likely secondary to sedation and hypovolemia High insensible losses due to respiratory failure. LR bolus 1 L now and continued LR 100 L/h Phenylephrine 40 mcg/min, wean as tolerated GI: OG tube in place. Initiate tube feeds when respiratory status stabilized, preferably when paralytic off. Initiate tube feeds today if not able to extubate. FEN/RENAL: Acute hypokalemia resolved Bui in place. Monitor intake and output. Monitor electrolytes. Replace electrolytes as indicated per ICU electrolyte placement protocol Received magnesium 1 g IV 11/24 ID: RSV negative Follow-up blood and sputum culture which are currently pending. Azithromycin 500 mg IV daily and Rocephin 1gram IV q12 hours were started empirically to cover community acquired organisms given the severity of his exacerbation however CXR is clear and would be appropriate for short course if cultures are negative. HEME: D dimer 0.23 ENDO: Acute hyperglycemia, likely secondary to steroids/stress reaction Monitor bedside glucose every 6 hours and administer low-dose insulin sliding scale as indicated. PROPH: SCD/ Lovenox 40 mg subcut daily for DVT prophylaxis. Famotidine 20 p.o. twice daily for stress ulcer prophylaxis. ACCESS: PIV x4 providing adequate access at this time. FULL CODE Mother updated at bedside in detail. Level 3 followup. Courtney De Jesus MD November 26, 2017 07:00
[2017-11-26 07:08] LABS: AUTOMATED NEUTROPHIL # 26.3 TH/MM3 (1.8-7.7); HEMATOCRIT 34.9 % (39.0-51.0); HEMOGLOBIN 12.4 GM/DL (13.0-17.0); LYMPH % 3.8 % (9.0-44.0); LYMPHOCYTE # 1.1 TH/MM3 (1.0-4.8); MEAN CELL VOLUME 89.9 FL (80.0-100.0); MEAN CORPUSCULAR HEMOGLOBIN 31.9 PG (27.0-34.0); MEAN CORPUSCULAR HGB CONC 35.5 % (32.0-36.0); MEAN PLATELET VOLUME 8.8 FL (7.0-11.0); MONOCYTE # 1.4 TH/MM3 (0-0.9); NEUT % 91.2 % (16.0-70.0); PLATELET COUNT 283 TH/MM3 (150-450); RED BLOOD COUNT 3.88 MIL/MM3 (4.50-5.90); RED CELL DISTRIBUTION WIDTH 13.2 % (11.6-17.2); WHITE BLOOD COUNT 28.8 TH/MM3 (4.0-11.0)
[2017-11-26] MEDS: RESP: BUDESONIDE 0.5 MG/2 ML NEB NEB SCH ×2 (07:39→19:51)
[2017-11-26 07:42] LABS: ALKALINE PHOSPHATASE 52 U/L (45-117); ALT (GPT) 36 U/L (12-78); AST (GOT) 34 U/L (15-37); BICARBONATE 30.9 MEQ/L (21.0-32.0); BLOOD UREA NITROGEN 21 MG/DL (7-18); CALCIUM 9.4 MG/DL (8.5-10.1); CHLORIDE 103 MEQ/L (98-107); GLOMERULAR FILTRATION RATE 82 ML/MIN (>89); GLUCOSE,RANDOM 169 MG/DL (74-106); MAGNESIUM 2.8 MG/DL (1.5-2.5); SODIUM (NA) 138 MEQ/L (136-145); TOTAL BILIRUBIN ADULT 0.3 MG/DL (0.2-1.0)
[2017-11-26] MEDS: AZITHROMYCIN INJ 500 MG in SODIUM CHLOR 0.9% 250 ML INJ 250 ML IV SCH (07:57)
[2017-11-26] MEDS: FAMOTIDINE 20 MG TAB PO SCH ×2 (08:57→19:56)
[2017-11-26] MEDS: TIOTROPIUM BROMIDE 18 MCG INH INH SCH (08:57)
[2017-11-26] MEDS: SODIUM CHLORIDE 0.9% FLUSH 10 ML FLUSH IV FLUSH SCH ×2 (09:00→19:56)
[2017-11-26] MEDS: CHLORHEXIDINE 0.12% (ORAL KIT) 15 ML CUP MT SCH ×2 (09:04→19:57)
[2017-11-26] MEDS: RESP: ALBUTEROL 2.5 MG/3 ML NEB (PRN) NEB (10:08)
[2017-11-26] MEDS: RESP: ALBUTEROL 2.5 MG/3 ML NEB (SCH) NEB ×4 (12:32→23:25)
[2017-11-26] MEDS: RESP: IPRATROPIUM 0.5 MG/2.5 ML NEB NEB SCH ×4 (12:32→23:25)
[2017-11-26] MEDS: ENOXAPARIN SODIUM 40 MG/0.4 ML SYRINGE SQ SCH (13:40)
--- NOTE | 2017-11-26 21:39 | HHI.PR ---
Subjective Remarks sedated on the ventilator Objective Vital Signs Date Time Temp Pulse Resp B/P (MAP) Pulse Ox O2 Delivery O2 Flow Rate FiO2 18 20:42 51 102/42 520/18 20:31 54 18 102/43 (62) 98 5/20/18 20:16 54 33 101/46 (64) 98 5/20/18 20:01 98.1 60 18 115/57 (76) 99 52018 20:00 40 520/18 20:00 52 520/18 19:52 98 40 5/20/18 19:46 52 18 109/53 (71) 98 520/18 19:31 54 18 107/49 (68) 98 11/26/18 19:16 58 23 102/47 (65) 97 18 19:01 58 17 101/48 (65) 97 11/26/18 18:46 64 25 105/49 (67) 96 11/26/18 18:31 64 18 106/50 (68) 96 18 18:16 60 28 107/52 (70) 98 520/18 18:01 98.0 58 19 107/48 (67) 98 520/18 18:00 59 5/20/18 17:46 58 21 109/50 (69) 98 11/26/18 17:31 60 24 109/52 (71) 98 20/18 17:25 99 40 5/20/18 17:16 58 26 106/50 (68) 99 5/20/18 17:01 62 25 109/50 (69) 99 520/18 16:46 62 23 107/48 (67) 100 5/20/18 16:31 62 18 108/51 (70) 100 5/20/18 16:16 64 18 105/55 (72) 100 5/20/18 16:01 68 17 106/51 (69) 99 520/18 16:00 53 5/20/18 16:00 40 5/20/18 15:46 98.3 72 18 101/45 (63) 96 20/18 15:31 74 17 108/54 (72) 96 11/26/18 15:16 76 13 115/53 (73) 96 520/18 15:01 78 13 116/53 (74) 96 5/20/18 14:46 80 17 118/54 (75) 96 2018 14:31 72 18 115/55 (75) 97 18 14:16 68 18 121/55 (77) 96 18 14:05 97 40 20/18 14:01 60 21 118/57 (77) 98 18 14:00 51 18 13:46 58 17 124/63 (83) 99 18 13:31 56 18 123/59 (80) 99 2018 13:16 58 18 117/56 (76) 100 18 13:01 56 17 119/55 (76) 99 18 12:46 56 18 112/57 (75) 99 11/26/17 12:31 56 16 105/44 (64) 96 11/26/17 12:25 66 17 100/54 (69) 94 11/26/17 12:16 86 18 82/47 (59) 93 18 12:01 86 18 99/46 (63) 94 18 12:00 40 18 12:00 52 11/26/17 11:49 98.3 100 21 90/50 (63) 95 18 11:46 86 18 88/49 (62) 94 18 11:31 86 18 98/45 (62) 94 18 11:16 88 18 95/50 (65) 93 18 11:11 93 40 18 11:01 88 19 106/50 (68) 94 18 10:46 84 18 103/58 (73) 96 18 10:31 68 18 115/63 (80) 98 2018 10:16 68 25 136/65 (88) 100 18 10:15 96 40 18 10:01 54 18 137/79 (98) 100 5/18 10:00 59 5/18 09:46 54 19 139/83 (101) 100 518 09:31 56 19 130/82 (98) 99 518 09:16 97.9 56 18 124/72 (89) 98 518 09:10 61 95/56 52018 09:01 64 19 111/63 (79) 96 18 08:46 66 18 105/61 (76) 97 18 08:31 86 17 90/56 (67) 97 18 08:17 88 18 94/56 (69) 97 18 08:16 88 19 81/50 (60) 96 11/26/17 08:01 84 15 95/52 (66) 97 18 08:00 57 2018 08:00 40 2018 07:46 86 19 101/55 (70) 97 11/26/17 07:40 97 40 11/26/17 07:32 97 40 11/26/17 07:31 52 23 141/82 (101) 98 11/26/17 07:16 56 18 118/62 (80) 98 11/26/17 07:01 54 18 109/58 (75) 98 11/26/17 06:01 60 17 107/52 (70) 96 11/26/17 06:00 60 18 06:00 60 107/52 18 05:46 60 17 113/57 (75) 97 11/26/17 05:31 58 17 111/55 (73) 97 11/26/17 05:16 58 17 111/53 (72) 97 18 05:01 58 17 114/55 (74) 97 18 04:46 58 17 118/57 (77) 98 11/26/17 04:31 56 17 120/62 (81) 99 18 04:13 99 40 20/18 04:01 98.3 56 18 115/61 (79) 98 2018 04:00 53 2018 04:00 40 20/18 03:46 56 17 118/59 (78) 97 18 03:31 56 17 118/60 (79) 97 20/18 03:08 61 115/61 520/18 03:01 60 24 115/61 (79) 98 18 02:46 58 24 114/55 (74) 98 18 02:31 60 24 117/52 (73) 98 11/26/17 02:16 60 24 124/63 (83) 98 11/26/17 02:15 98 40 11/26/17 02:01 60 20 122/62 (82) 99 11/26/17 02:00 59 11/26/17 01:46 60 24 119/60 (79) 99 11/26/17 01:31 60 26 114/59 (77) 98 11/26/17 01:16 60 24 115/57 (76) 98 11/26/17 01:01 60 23 115/58 (77) 99 18 00:46 60 24 114/56 (75) 99 11/26/17 00:31 60 25 112/52 (72) 97 11/26/17 00:16 62 18 123/59 (80) 98 11/26/17 00:01 98.7 60 18 129/70 (89) 100 11/26/17 00:00 62 11/26/17 00:00 40 11/25/17 23:46 60 17 125/68 (87) 98 11/25/17 23:31 60 17 127/66 (86) 98 11/25/17 23:16 60 17 123/65 (84) 98 18 22:01 60 24 117/58 (77) 98 11/25/17 22:00 99 40 11/25/17 22:00 60 18 21:46 60 31 112/58 (76) 99 I/O 18 5//18 11/25/18 /18 11/26/17 11/26/17 07:00 15:00 23:00 07:00 15:00 23:00 Intake Total 1498 ml 3077 ml 2259 ml 52 ml 1746 ml Output Total 800 ml 300 ml 1450 ml 1880 ml Balance 698 ml 2777 ml 809 ml 52 ml -134 ml IV Total 1498 ml 3077 ml 2259 ml 52 ml 1746 ml Output Urine Total 800 ml 1350 ml 1700 ml Gastric Drainage Total 300 ml 100 ml 180 ml # Bowel Movements 0 0 Result Diagram: 11/26/17 0543 11/26/17 0543 Objective Remarks GENERAL: on the vent , sedated SKIN: Warm and dry. HEAD: Atraumatic. Normocephalic. EYES: Pupils equal and round. No scleral icterus. No injection or drainage. ENT: No nasal bleeding or discharge. Mucous membranes pink and moist. NECK: Trachea midline. No JVD. CARDIOVASCULAR: Regular rate and rhythm. RESPIRATORY: No accessory muscle use. Clear to auscultation. Breath sounds equal bilaterally. GASTROINTESTINAL: Abdomen soft, non-tender, nondistended. Hepatic and splenic margins not palpable. MUSCULOSKELETAL: Extremities without clubbing, cyanosis, or edema. No obvious deformities. NEUROLOGICAL: Awake and alert. No obvious cranial nerve deficits. Motor grossly within normal limits. Five out of 5 muscle strength in the arms and legs. Normal speech. PSYCHIATRIC: Appropriate mood and affect; insight and judgment normal. Assessment and Plan Assessment and Plan respiratory failure on the ventilator weaning not successful today PLAN vent. support wean as tolerated bronchodilator therapy Physician Attestation GENERAL: on the vent , sedated SKIN: Warm and dry. HEAD: Atraumatic. Normocephalic. EYES: Pupils equal and round. No scleral icterus. No injection or drainage. ENT: No nasal bleeding or discharge. Mucous membranes pink and moist. NECK: Trachea midline. No JVD. CARDIOVASCULAR: Regular rate and rhythm. RESPIRATORY: No accessory muscle use. Clear to auscultation. Breath sounds equal bilaterally. GASTROINTESTINAL: Abdomen soft, non-tender, nondistended. Hepatic and splenic margins not palpable. MUSCULOSKELETAL: Extremities without clubbing, cyanosis, or edema. No obvious deformities. NEUROLOGICAL: Awake and alert. No obvious cranial nerve deficits. Motor grossly within normal limits. Five out of 5 muscle strength in the arms and legs. Normal speech. PSYCHIATRIC: Appropriate mood and affect; insight and judgment normal. Alvin Esquivel MD November 26, 2017 21:39
[2017-11-27] VITALS (62 sets, daily range): BP systolic 92–138; BP diastolic 43–91; PULSE 52–106; RESP 14–45; TEMP 97.4–98.6; O2SAT 90–100
[2017-11-27] MEDS: methylPREDNISolone SOD SUCC 125 MG/2 ML VIAL IV PUSH SCH ×5 (00:08→20:08)
[2017-11-27] MEDS: LACTATED RINGER'S 1000 ML INJ 1,000 ML IV SCH ×3 (00:09→13:50)
[2017-11-27] MEDS: cefTRIAXone INJ 1,000 MG in SODIUM CHLORIDE 0.9% INJ 100 ML IV SCH ×2 (01:22→13:46)
[2017-11-27] MEDS: INSULIN ASPART SUPPLEMENTAL SCALE SQ SCH ×4 (02:00→20:00)
[2017-11-27] MEDS: RESP: IPRATROPIUM 0.5 MG/2.5 ML NEB NEB SCH ×4 (03:39→15:50)
[2017-11-27] MEDS: RESP: ALBUTEROL 2.5 MG/3 ML NEB (SCH) NEB ×4 (03:39→15:50)
[2017-11-27] MEDS: CHLORHEXIDINE GLUCONATE 2 % 1 PACK (2 CLOTHS)(taper/protocol) TOPICAL SCH (03:46)
[2017-11-27 05:15] LABS: AUTOMATED NEUTROPHIL # 25.3 TH/MM3 (1.8-7.7); BASOPHIL # 0.1 TH/MM3 (0-0.2); BASOPHIL % 0.2 % (0.0-2.0); EOSINOPHIL % 0.1 % (0.0-4.0); HEMATOCRIT 35.2 % (39.0-51.0); HEMOGLOBIN 12.2 GM/DL (13.0-17.0); LYMPH % 3.3 % (9.0-44.0); LYMPHOCYTE # 0.9 TH/MM3 (1.0-4.8); MEAN CORPUSCULAR HEMOGLOBIN 30.7 PG (27.0-34.0); MEAN CORPUSCULAR HGB CONC 34.5 % (32.0-36.0); MEAN PLATELET VOLUME 7.7 FL (7.0-11.0); MONO % 3.1 % (0.0-8.0); MONOCYTE # 0.8 TH/MM3 (0-0.9); NEUT % 93.3 % (16.0-70.0); PLATELET COUNT 263 TH/MM3 (150-450); RED BLOOD COUNT 3.96 MIL/MM3 (4.50-5.90); RED CELL DISTRIBUTION WIDTH 12.4 % (11.6-17.2); WHITE BLOOD COUNT 27.1 TH/MM3 (4.0-11.0)
[2017-11-27 05:26] LABS: CALCIUM 9.6 MG/DL (8.5-10.1)
[2017-11-27 05:27] LABS: BICARBONATE 27.2 MEQ/L (21.0-32.0); MAGNESIUM 2.8 MG/DL (1.5-2.5)
[2017-11-27 05:30] LABS: CREATININE 1.1 MG/DL (0.60-1.30)
[2017-11-27] MEDS: RESP: BUDESONIDE 0.5 MG/2 ML NEB NEB SCH ×2 (07:29→19:19)
[2017-11-27] MEDS: CHLORHEXIDINE 0.12% (ORAL KIT) 15 ML CUP MT SCH ×2 (08:00→20:00)
[2017-11-27] MEDS: AZITHROMYCIN INJ 500 MG in SODIUM CHLOR 0.9% 250 ML INJ 250 ML IV SCH (08:52)
[2017-11-27] MEDS: RESP: ALBUTEROL 2.5 MG/3 ML NEB (PRN) NEB (09:34)
[2017-11-27] MEDS: FAMOTIDINE 20 MG TAB PO SCH ×2 (10:52→20:08)
[2017-11-27] MEDS: SODIUM CHLORIDE 0.9% FLUSH 10 ML FLUSH IV FLUSH SCH ×2 (10:52→20:08)
--- NOTE | 2017-11-27 11:00 | HHI.PR ---
Subjective Remarks ALERT EXTUBATED ON O2 N/C Objective Vital Signs Date Time Temp Pulse Resp B/P (MAP) Pulse Ox O2 Delivery O2 Flow Rate FiO2 11/27/17 10:01 92 45 105/63 (77) 94 11/27/17 10:00 88 11/27/17 09:37 96 Nasal Cannula 6 11/27/17 09:01 70 20 103/62 (76) 96 11/27/17 09:00 66 11/27/17 08:01 97.6 76 20 107/66 (80) 96 11/27/17 08:00 76 11/27/17 08:00 40 11/27/17 07:39 96 40 11/27/17 07:01 104 19 112/66 (81) 95 11/27/17 06:30 95 40 11/27/17 06:17 106 20 117/60 (79) 96 11/27/17 06:15 40 11/27/17 06:10 96 40 11/27/17 06:02 104 14 126/91 (103) 100 11/27/17 06:00 95 11/27/17 05:55 98 40 11/27/17 05:47 102 17 121/64 (83) 98 11/27/17 05:45 105 117/60 11/27/17 05:32 58 17 121/73 (89) 11/27/17 05:17 52 18 116/57 (76) 11/27/17 05:02 52 17 114/58 (76) 11/27/17 04:32 98 19 138/69 (92) 11/27/17 04:17 56 23 118/57 (77) 99 11/27/17 04:05 97 40 11/27/17 04:02 98.0 52 25 120/62 (81) 97 11/27/17 04:00 55 11/27/17 04:00 40 11/27/17 03:47 52 25 119/63 (81) 97 11/27/17 03:32 52 34 116/62 (80) 97 11/27/17 03:17 54 35 121/59 (79) 97 11/27/17 03:02 54 32 115/61 (79) 96 11/27/17 02:47 56 30 118/57 (77) 96 11/27/17 02:32 62 33 123/63 (83) 95 5/21/18 02:02 64 18 112/66 (81) 97 5/21/18 02:00 93 5/21/18 01:47 58 29 118/57 (77) 97 5//18 01:39 97 40 5/21/18 01:32 68 31 117/59 (78) 96 5/21/18 01:17 62 19 111/56 (74) 97 5//18 01:02 66 22 114/59 (77) 98 5/21/18 00:47 62 17 116/54 (74) 98 5/21/18 00:32 64 24 103/53 (70) 98 5/21/18 00:17 60 25 109/49 (69) 98 5//18 00:02 98.6 58 26 103/48 (66) 98 5/21/18 00:00 40 5/21/18 00:00 60 5/20/18 23:47 64 36 109/55 (73) 98 5/20/18 23:32 58 40 105/47 (66) 99 5/20/18 23:17 60 31 108/44 (65) 96 5/20/18 23:02 60 35 110/51 (70) 97 5/20/18 22:32 56 35 102/41 (61) 98 5/20/18 22:17 54 35 102/43 (62) 98 5/20/18 22:09 97 40 5/20/18 22:01 56 36 105/41 (62) 97 5/20/18 22:00 56 5/20/18 21:46 58 37 104/41 (62) 96 5/20/18 21:31 56 36 106/44 (64) 97 5/20/18 21:22 54 35 103/46 (65) 98 5/20/18 21:16 54 35 102/41 (61) 98 5/20/18 21:01 52 30 105/41 (62) 98 5/20/18 20:42 51 102/42 5/20/18 20:31 54 18 102/43 (62) 98 5/20/18 20:16 54 33 101/46 (64) 98 5/20/18 20:01 98.1 60 18 115/57 (76) 99 5/20/18 20:00 40 5/20/18 20:00 52 5/20/18 19:52 98 40 5/20/18 19:46 52 18 109/53 (71) 98 520/18 19:31 54 18 107/49 (68) 98 5/20/18 19:16 58 23 102/47 (65) 97 5/20/18 19:01 58 17 101/48 (65) 97 /20/18 18:46 64 25 105/49 (67) 96 20/18 18:31 64 18 106/50 (68) 96 20/18 18:16 60 28 107/52 (70) 98 5/20/18 18:01 98.0 58 19 107/48 (67) 98 20/18 18:00 59 5/20/18 17:46 58 21 109/50 (69) 98 11/26/18 17:31 60 24 109/52 (71) 98 //18 17:25 99 40 20/18 17:16 58 26 106/50 (68) 99 11/26/18 17:01 62 25 109/50 (69) 99 20/18 16:46 62 23 107/48 (67) 100 11/26/18 16:31 62 18 108/51 (70) 100 11/26/18 16:16 64 18 105/55 (72) 100 11/26/18 16:01 68 17 106/51 (69) 99 11/26/18 16:00 53 18 16:00 40 11/26/18 15:46 98.3 72 18 101/45 (63) 96 18 15:31 74 17 108/54 (72) 96 11/26/18 15:16 76 13 115/53 (73) 96 20/18 15:01 78 13 116/53 (74) 96 20/18 14:46 80 17 118/54 (75) 96 20/18 14:31 72 18 115/55 (75) 97 20/18 14:16 68 18 121/55 (77) 96 20/18 14:05 97 40 5/20/18 14:01 60 21 118/57 (77) 98 18 14:00 51 520/18 13:46 58 17 124/63 (83) 99 5/20/18 13:31 56 18 123/59 (80) 99 11/26/17 13:16 58 18 117/56 (76) 100 11/26/17 13:01 56 17 119/55 (76) 99 11/26/17 12:46 56 18 112/57 (75) 99 11/26/17 12:31 56 16 105/44 (64) 96 11/26/17 12:25 66 17 100/54 (69) 94 11/26/17 12:16 86 18 82/47 (59) 93 11/26/17 12:01 86 18 99/46 (63) 94 11/26/17 12:00 40 11/26/17 12:00 52 11/26/17 11:49 98.3 100 21 90/50 (63) 95 11/26/17 11:46 86 18 88/49 (62) 94 11/26/17 11:31 86 18 98/45 (62) 94 11/26/17 11:16 88 18 95/50 (65) 93 11/26/17 11:11 93 40 11/26/17 11:01 88 19 106/50 (68) 94 I/O 11/26/17 11/26/17 11/26/17 11/27/17 11/27/17 11/27/17 07:00 15:00 23:00 07:00 15:00 23:00 Intake Total 2259 ml 52 ml 1746 ml 1513 ml Output Total 1450 ml 1880 ml 2000 ml Balance 809 ml 52 ml -134 ml -487 ml Intake Oral 0 ml IV Total 2259 ml 52 ml 1746 ml 1513 ml Output Urine Total 1350 ml 1700 ml 1800 ml Gastric Drainage Total 100 ml 180 ml 200 ml # Bowel Movements 0 0 Result Diagram: 11/27/17 0500 11/27/17 0500 Objective Remarks GENERAL: on the vent , sedated SKIN: Warm and dry. HEAD: Atraumatic. Normocephalic. EYES: Pupils equal and round. No scleral icterus. No injection or drainage. ENT: No nasal bleeding or discharge. Mucous membranes pink and moist. NECK: Trachea midline. No JVD. CARDIOVASCULAR: Regular rate and rhythm. RESPIRATORY: No accessory muscle use. Clear to auscultation. Breath sounds equal bilaterally. GASTROINTESTINAL: Abdomen soft, non-tender, nondistended. Hepatic and splenic margins not palpable. MUSCULOSKELETAL: Extremities without clubbing, cyanosis, or edema. No obvious deformities. NEUROLOGICAL: Awake and alert. No obvious cranial nerve deficits. Motor grossly within normal limits. Five out of 5 muscle strength in the arms and legs. Normal speech. PSYCHIATRIC: Appropriate mood and affect; insight and judgment normal. Assessment and Plan Assessment and Plan respiratory failure EXTUBATED ON O2 NC PLAN INCREASE ACTIVITY bronchodilator therapy Alvin Esquivel MD November 27, 2017 11:00
[2017-11-27] MEDS: ENOXAPARIN SODIUM 40 MG/0.4 ML SYRINGE SQ SCH (13:46)
[2017-11-27] MEDS: TIOTROPIUM BROMIDE 18 MCG INH INH SCH (14:06)
--- NOTE | 2017-11-27 17:19 | HHI.CCPN ---
Subjective Remarks/Hospital Course This is a 22yM with history of poorly controlled asthma who presented with sudden onset shortness of breath. endoreses dry cough. denies chest pain. denies sick contacts. denies sputum production. denies fever, chills. denies n/v /c/d/abd pain. no other associated symptoms. states he does not have insurance and cannot pay for inhaled steroids or LABA meds. states he gets 1 inhaler before leaving the hospital and then when it runs out, uses prn albuterol instead. has been hospitalized at least once in the last year. multiple ER visits. has been out of any long-acting meds about 30 days now. admitted for asthma exacerbation, started on iv steroids, albuterol nebs, magnesium iv. worsening resp distress requiring face mask o2. critical care consulted for rapidly declining respiratory status. 11/25 On Bipap 15/5 50% overnight but had increased WOB necessitating intubation. Difficult to sedate and achieve vent synchrony resulting in respiratory acidemia. . Now on propofol 20 mcg/kg/min, fentanyl 100 mcg, Versed 5 mg/hr, Nimbex. Neosynephrine 40 mcg/min. Multiple vent changes overnight and respiratory acidemia persists on ABG this morning. Subjective: 11/26 Was able to tolerate discontinuation of Nimbex yesterday early afternoon. Sedated on propofol 10, fentanyl 50 mcg/hr, versed 3 mg/hr. Awakens to voice on current sedation, gets agitated when sedation reduced but is apneic on current sedation so will try Precedex to facilitate CPAP trials. Afebrile. 11/27: Extubated this morning currently on nasal cannula 4 L/min. Still has some wheezing. Objective Vital Signs Date Time Temp Pulse Resp B/P (MAP) Pulse Ox O2 Delivery O2 Flow Rate FiO2 11/27/17 16:00 100 11/27/17 12:14 98 Nasal Cannula 6.00 11/27/17 12:01 97.5 32 104/56 (72) 11/27/17 08:00 40 Intake and Output 11/27/17 11/27/17 11/28/17 08:00 16:00 00:00 Intake Total 1513 ml Output Total 2000 ml Balance -487 ml Result Diagram: 11/27/17 0500 11/27/17 0500 Other Results Microbiology Date/Time Source Procedure Growth Status 11/25/17 05:49 Sputum Endotracheal Gram Stain - Final Complete 11/25/17 05:49 Sputum Endotracheal Sputum Culture - Final HEAVY GROWTH NORMAL RESPIRATORY SARA Complete 11/24/17 23:01 Nasopharyngeal Respiratory Syncytial Virus Ag - Final NEGATIVE FOR RSV ANTIGEN... Complete Imaging Last Impressions Chest X-Ray 11/24/17 040 Signed Impressions: Service Date/Time: Friday, November 24, 2017 04:22 - CONCLUSION: No acute disease. Juan Clinton Jr., MD Objective Remarks GENERAL: Well-nourished, well-developed patient laying in bed on 4 L nasal cannula with slight tachypnea. SKIN: Warm and dry, well perfused. HEAD: Atraumatic. Normocephalic. EYES: Pupils equal and round, 2mm and reactive bilaterally . No scleral icterus. No injection or drainage. ENT: No nasal bleeding or discharge. Mucous membranes pink and moist. Full kelly. NECK: Trachea midline. No JVD. CARDIOVASCULAR: rrr no mrg. . RESPIRATORY: Good air entry bilaterally, bilateral wheezing with slightly prolonged expiration. Scattered rhonchi. GASTROINTESTINAL: Abdomen soft, non-tender, nondistended. Bowel sounds present. : Bui in place with light yellow urine output MUSCULOSKELETAL: Extremities without clubbing, cyanosis, or edema. NEUROLOGICAL: Drowsy, easily arousable, moving all 4 extremities, nonfocal grossly. A/P Assessment and Plan Active problems: NEURO: Off all sedation. Follow neuro status. RESP: Status asthmaticus Acute hypoxemic and hypercapnic respiratory failure DuoNeb every 4 hours, albuterol every 2 hours as needed Solu-Medrol 60 mg IV every 6 hours Budesonide 0.5 nebs every 12 hours Spiriva 18 mcg inhaled daily Extubated to 4 L nasal cannula on 11/27. Tolerating well currently. CV: Hypotension, likely secondary to sedation and hypovolemia Off all pressors. Continue maintenance IV fluids GI: Advance p.o. diet as tolerated. FEN/RENAL: Acute hypokalemia resolved Bui in place. Monitor intake and output. Monitor electrolytes. Replace electrolytes as indicated per ICU electrolyte placement protocol Received magnesium 1 g IV 11/24 ID: RSV negative Follow-up blood and sputum culture which are currently pending. Azithromycin 500 mg IV daily and Rocephin 1gram IV q12 hours were started empirically to cover community acquired organisms given the severity of his exacerbation however CXR is clear and would be appropriate for short course if cultures are negative. HEME: D dimer 0.23 ENDO: Acute hyperglycemia, likely secondary to steroids/stress reaction Monitor bedside glucose every 6 hours and administer low-dose insulin sliding scale as indicated. PROPH: SCD/ Lovenox 40 mg subcut daily for DVT prophylaxis. Famotidine 20 p.o. twice daily for stress ulcer prophylaxis. ACCESS: PIV x4 providing adequate access at this time. FULL CODE Updated family at bedside and they voiced understanding and were agreeable with plan of care. Consult and transfer to hospitalist service in a.m., critical care signing off, please reconsult if needed. Diomedes Harley MD November 27, 2017 17:19
[2017-11-27] MEDS: RESP: ALBUTEROL 2.5 MG/IPRATROPIUM 0.5 MG NEB (SCH) NEB ×2 (19:19→22:37)
[2017-11-27] MEDS: ONDANSETRON HCL 4 MG/2 ML VIAL IV PUSH PRN (23:11)
[2017-11-28] VITALS (39 sets, daily range): BP systolic 90–127; BP diastolic 52–72; PULSE 64–110; RESP 15–25; TEMP 97.9–98.2; O2SAT 91–98
[2017-11-28] MEDS: ACETAMINOPHEN 325 MG TAB PO PRN ×3 (00:44→22:13)
[2017-11-28] MEDS: cefTRIAXone INJ 1,000 MG in SODIUM CHLORIDE 0.9% INJ 100 ML IV SCH (00:44)
[2017-11-28] MEDS: RESP: ALBUTEROL 2.5 MG/3 ML NEB (PRN) NEB (01:16)
[2017-11-28] MEDS: INSULIN ASPART SUPPLEMENTAL SCALE SQ SCH ×2 (02:00→08:00)
[2017-11-28] MEDS: CHLORHEXIDINE GLUCONATE 2 % 1 PACK (2 CLOTHS)(taper/protocol) TOPICAL SCH (04:00)
[2017-11-28] MEDS: methylPREDNISolone SOD SUCC 125 MG/2 ML VIAL IV PUSH SCH ×2 (04:21→08:21)
[2017-11-28] MEDS: LACTATED RINGER'S 1000 ML INJ 1,000 ML IV SCH ×2 (04:22→11:08)
[2017-11-28] MEDS: RESP: ALBUTEROL 2.5 MG/IPRATROPIUM 0.5 MG NEB (SCH) NEB ×6 (04:32→23:12)
--- NOTE | 2017-11-28 05:37 | RADRPT ---
EXAM DATE/TIME: 11/28/2017 05:23 [facility] COMPARISON: CHEST SINGLE AP, November 25, 2017, 11:45. INDICATIONS : Shortness of breath. MEDICAL HISTORY : Asthma. SURGICAL HISTORY : ORIF right clavicle. ENCOUNTER: Subsequent ACUITY: 4 - 6 days PAIN SCORE: Non-responsive. LOCATION: Bilateral chest FINDINGS: A single view of the chest demonstrates the lungs to be symmetrically aerated without evidence of mas s, infiltrate or effusion. The cardiomediastinal contours are unremarkable. The endotracheal tube an d nasogastric tube have been removed. A screw-plate fixation device again noted along the right clavi chet. CONCLUSION: 1. Interval extubation and removal of nasogastric tube. 2. The lungs are clear. Wilian Ritchie MD on November 28, 2017 at 5:34 Board Certified Radiologist. This report was verified electronically.
[2017-11-28] MEDS: RESP: BUDESONIDE 0.5 MG/2 ML NEB NEB SCH ×2 (07:12→20:03)
[2017-11-28] MEDS: CHLORHEXIDINE 0.12% (ORAL KIT) 15 ML CUP MT SCH ×2 (07:49→20:00)
[2017-11-28] MEDS: AZITHROMYCIN INJ 500 MG in SODIUM CHLOR 0.9% 250 ML INJ 250 ML IV SCH (08:06)
[2017-11-28] MEDS: TIOTROPIUM BROMIDE 18 MCG INH INH SCH (08:06)
[2017-11-28] MEDS: FAMOTIDINE 20 MG TAB PO SCH ×2 (08:06→20:22)
[2017-11-28] MEDS: SODIUM CHLORIDE 0.9% FLUSH 10 ML FLUSH IV FLUSH SCH ×2 (08:20→20:22)
[2017-11-28] MEDS ORDERED: BISACODYL EC 5 MG TABEC PO ONE (11:15)
--- NOTE | 2017-11-28 11:22 | HHI.PR ---
Subjective Remarks Patient seen and evaluated today in follow-up for respiratory failure secondary to asthma. Extubated yesterday. On O2 4 L and tolerating well. Patient would like to eat. Objective Vitals Vital Signs Date Time Temp Pulse Resp B/P (MAP) Pulse Ox O2 Delivery O2 Flow Rate FiO2 11/28/17 07:25 96 Nasal Cannula 4.00 11/28/17 06:01 74 15 107/56 (73) 97 11/28/17 06:00 76 11/28/17 05:01 76 17 102/56 (71) 95 11/28/17 04:32 96 Nasal Cannula 5.00 11/28/17 04:01 97.9 68 16 104/52 (69) 96 11/28/17 04:00 64 11/28/17 03:01 80 16 101/57 (72) 96 11/28/17 02:26 86 17 108/54 (72) 94 11/28/17 02:00 94 11/28/17 01:01 84 18 115/65 (82) 97 11/28/17 00:01 98.2 90 16 107/65 (79) 92 11/28/17 00:00 90 11/27/17 23:01 96 16 114/65 (81) 94 11/27/17 22:01 82 17 100/62 (75) 97 11/27/17 22:00 86 11/27/17 21:01 92 17 92/52 (65) 98 11/27/17 20:01 97.9 90 19 104/59 (74) 96 11/27/17 20:00 86 11/27/17 19:19 95 Nasal Cannula 4.00 11/27/17 18:01 86 33 105/53 (70) 99 11/27/17 18:00 90 11/27/17 17:01 106 20 116/54 (74) 93 11/27/17 16:01 97.4 106 21 115/66 (82) 96 11/27/17 16:00 100 11/27/17 15:01 82 20 108/55 (72) 96 11/27/17 14:01 96 31 94/43 (60) 93 11/27/17 14:00 94 11/27/17 13:01 102 27 110/63 (79) 90 11/27/17 12:14 98 Nasal Cannula 6.00 11/27/17 12:01 97.5 74 32 104/56 (72) 98 11/27/17 12:00 76 I/O 11/27/17 11/27/17 11/27/17 11/28/17 11/28/17 11/28/17 07:00 15:00 23:00 07:00 15:00 23:00 Intake Total 1513 ml 120 ml Output Total 2000 ml 2550 ml 1350 ml Balance -487 ml -2430 ml -1350 ml Intake Oral 0 ml 120 ml IV Total 1513 ml Output Urine Total 1800 ml 2500 ml 1350 ml Gastric Drainage Total 200 ml 50 ml # Bowel Movements 0 0 Result Diagram: 11/27/17 0500 11/27/17 0500 Imaging Last Impressions Chest X-Ray 11/28/17 0600 Signed Impressions: Service Date/Time: Tuesday, November 28, 2017 05:23 - CONCLUSION: 1. Interval extubation and removal of nasogastric tube. 2. The lungs are clear. Wilian Ritchie MD Objective Remarks GENERAL: This is a well-nourished, well-developed patient, in no apparent distress. CARDIOVASCULAR: Regular rate and rhythm without murmurs, gallops, or rubs. RESPIRATORY: Improved airflow with scattered wheezes GASTROINTESTINAL: Abdomen soft, non-tender, nondistended. Normal active bowel sounds MUSCULOSKELETAL: Extremities without clubbing, cyanosis, or edema. NEURO: Alert & Oriented x4 to person, place, time, situation. Moves all ext x4 Procedures Intubation, extubation A/P Problem List: (1) Acute asthma exacerbation ICD Code: J45.901 - Unspecified asthma with (acute) exacerbation Status: Acute Plan: Patient with acute hypoxemic respiratory failure due to uncontrolled severe and persistent chronic asthma Continue with p.o. steroid taper, p.o. antibiotics Encourage out of bed Continue O2 as needed, currently on 4 L Discussed with POLYSOMNOGRAPHIC TECHNOLOGISThand spring repairer helper and Plan Advance diet Advance activity DEDRA Bui Follow-up BM Discharge Planning Pending clinical improvement 2-3 days Home on oral medicines Wanda Mathews MD November 28, 2017 11:21
[2017-11-28] MEDS: predniSONE 20 MG TAB PO SCH ×2 (12:02→17:46)
[2017-11-28] MEDS: ENOXAPARIN SODIUM 40 MG/0.4 ML SYRINGE SQ SCH (12:02)
[2017-11-28 13:31] LABS: CHLORIDE 106 MEQ/L (98-107); SODIUM (NA) 140 MEQ/L (136-145)
[2017-11-28 13:35] LABS: BICARBONATE 28.8 MEQ/L (21.0-32.0); CALCIUM 9.5 MG/DL (8.5-10.1); GLUCOSE,RANDOM 161 MG/DL (74-106)
[2017-11-28 13:36] LABS: BLOOD UREA NITROGEN 26 MG/DL (7-18)
[2017-11-28 13:39] LABS: GLOMERULAR FILTRATION RATE 92 ML/MIN (>89)
--- NOTE | 2017-11-28 18:06 | HHI.PR ---
Subjective Remarks ALERT EXTUBATED ON O2 N/C Objective Vital Signs Date Time Temp Pulse Resp B/P (MAP) Pulse Ox O2 Delivery O2 Flow Rate FiO2 11/28/17 17:01 86 19 117/66 (83) 11/28/17 16:01 98.1 94 20 111/68 (82) 11/28/17 16:01 94 11/28/17 15:01 76 11/28/17 15:01 76 16 90/66 (74) 11/28/17 14:01 113/60 (77) 11/28/17 13:01 110 25 122/71 (88) 11/28/17 13:01 76 11/28/17 12:01 97.9 86 17 115/65 (82) 11/28/17 12:00 76 11/28/17 11:01 76 11/28/17 11:01 74 15 109/62 (78) 94 11/28/17 10:01 80 16 114/64 (81) 97 11/28/17 10:00 76 11/28/17 09:01 76 11/28/17 09:01 86 17 113/64 (80) 95 11/28/17 08:01 92 19 117/72 (87) 94 11/28/17 08:00 76 11/28/17 07:25 96 Nasal Cannula 4.00 11/28/17 07:01 97.9 76 16 103/58 (73) 98 11/28/17 06:01 74 15 107/56 (73) 97 11/28/17 06:00 76 11/28/17 05:01 76 17 102/56 (71) 95 11/28/17 04:32 96 Nasal Cannula 5.00 11/28/17 04:01 97.9 68 16 104/52 (69) 96 11/28/17 04:00 64 11/28/17 03:01 80 16 101/57 (72) 96 11/28/17 02:26 86 17 108/54 (72) 94 11/28/17 02:00 94 11/28/17 01:01 84 18 115/65 (82) 97 11/28/17 00:01 98.2 90 16 107/65 (79) 92 11/28/17 00:00 90 11/27/17 23:01 96 16 114/65 (81) 94 11/27/17 22:01 82 17 100/62 (75) 97 11/27/17 22:00 86 11/27/17 21:01 92 17 92/52 (65) 98 11/27/17 20:01 97.9 90 19 104/59 (74) 96 11/27/17 20:00 86 11/27/17 19:19 95 Nasal Cannula 4.00 I/O 11/27/17 11/27/17 11/27/17 11/28/17 11/28/17 11/28/17 07:00 15:00 23:00 07:00 15:00 23:00 Intake Total 1513 ml 120 ml Output Total 2000 ml 2550 ml 1350 ml Balance -487 ml -2430 ml -1350 ml Intake Oral 0 ml 120 ml IV Total 1513 ml Output Urine Total 1800 ml 2500 ml 1350 ml Gastric Drainage Total 200 ml 50 ml # Bowel Movements 0 0 Result Diagram: 11/27/17 0500 11/28/17 1235 Objective Remarks GENERAL: SKIN: Warm and dry. HEAD: Atraumatic. Normocephalic. EYES: Pupils equal and round. No scleral icterus. No injection or drainage. ENT: No nasal bleeding or discharge. Mucous membranes pink and moist. NECK: Trachea midline. No JVD. CARDIOVASCULAR: Regular rate and rhythm. RESPIRATORY: No accessory muscle use. Clear to auscultation. Breath sounds equal bilaterally. GASTROINTESTINAL: Abdomen soft, non-tender, nondistended. Hepatic and splenic margins not palpable. MUSCULOSKELETAL: Extremities without clubbing, cyanosis, or edema. No obvious deformities. NEUROLOGICAL: Awake and alert. No obvious cranial nerve deficits. Motor grossly within normal limits. Five out of 5 muscle strength in the arms and legs. Normal speech. PSYCHIATRIC: Appropriate mood and affect; insight and judgment normal. Assessment and Plan Assessment and Plan respiratory failure EXTUBATED ON O2 NC good appetite PLAN INCREASE ACTIVITY bronchodilator therapy Alvin Esquivel MD November 28, 2017 18:06
[2017-11-28 19:10] LABS: HEMOGLOBIN A1C 5.3 % (4.3-6.0)
[2017-11-28] MEDS: ONDANSETRON HCL 4 MG/2 ML VIAL IV PUSH PRN (19:26)
[2017-11-28] MEDS: CEFUROXIME AXETIL 500 MG TAB PO SCH (20:22)
[2017-11-29] VITALS (30 sets, daily range): BP systolic 104–131; BP diastolic 60–81; PULSE 68–114; RESP 9–23; TEMP 98.1–98.4; O2SAT 90–99
[2017-11-29] MEDS: CHLORHEXIDINE GLUCONATE 2 % 1 PACK (2 CLOTHS)(taper/protocol) TOPICAL SCH (00:13)
[2017-11-29] MEDS: RESP: ALBUTEROL 2.5 MG/IPRATROPIUM 0.5 MG NEB (SCH) NEB ×6 (04:13→23:54)
[2017-11-29 05:20] LABS: AUTOMATED NEUTROPHIL # 11.1 TH/MM3 (1.8-7.7); BASOPHIL % 0.2 % (0.0-2.0); EOSINOPHIL % 0.1 % (0.0-4.0); HEMATOCRIT 34.8 % (39.0-51.0); HEMOGLOBIN 11.9 GM/DL (13.0-17.0); LYMPH % 9.3 % (9.0-44.0); LYMPHOCYTE # 1.2 TH/MM3 (1.0-4.8); MEAN CELL VOLUME 89.7 FL (80.0-100.0); MEAN CORPUSCULAR HEMOGLOBIN 30.8 PG (27.0-34.0); MEAN CORPUSCULAR HGB CONC 34.3 % (32.0-36.0); MEAN PLATELET VOLUME 7.4 FL (7.0-11.0); MONOCYTE # 1.1 TH/MM3 (0-0.9); NEUT % 82.4 % (16.0-70.0); PLATELET COUNT 211 TH/MM3 (150-450); RED BLOOD COUNT 3.88 MIL/MM3 (4.50-5.90); RED CELL DISTRIBUTION WIDTH 12.1 % (11.6-17.2); WHITE BLOOD COUNT 13.4 TH/MM3 (4.0-11.0)
[2017-11-29] MEDS: RESP: BUDESONIDE 0.5 MG/2 ML NEB NEB SCH ×2 (07:14→20:47)
[2017-11-29] MEDS: CHLORHEXIDINE 0.12% (ORAL KIT) 15 ML CUP MT SCH (08:00)
[2017-11-29] MEDS: CEFUROXIME AXETIL 500 MG TAB PO SCH ×2 (08:37→21:15)
[2017-11-29] MEDS: predniSONE 20 MG TAB PO SCH ×3 (08:37→17:43)
[2017-11-29] MEDS: AZITHROMYCIN 250 MG TAB PO SCH (08:37)
[2017-11-29] MEDS: TIOTROPIUM BROMIDE 18 MCG INH INH SCH (08:37)
[2017-11-29] MEDS: FAMOTIDINE 20 MG TAB PO SCH ×2 (08:37→21:15)
[2017-11-29] MEDS: SODIUM CHLORIDE 0.9% FLUSH 10 ML FLUSH IV FLUSH SCH ×2 (09:00→21:00)
--- NOTE | 2017-11-29 12:25 | HHI.PR ---
Subjective Remarks Patient seen and evaluated in follow-up for hypercapnic hypoxemic respiratory failure. Doing well currently although poorly mobile. Respiratory status is improved. Patient with shallow breathing on initial evaluation with 90% O2 sats With deep breathing patient did recover to 94-95%. Care plan discussed with RADIO OPERATOR [employer] and PT and family at bedside Oral intake a bit better, positive bowel movement Objective Vitals Vital Signs Date Time Temp Pulse Resp B/P (MAP) Pulse Ox O2 Delivery O2 Flow Rate FiO2 11/29/17 10:01 92 16 109/64 (79) 93 11/29/17 10:00 83 11/29/17 09:01 90 15 117/68 (84) 93 11/29/17 08:01 78 9 115/66 (82) 90 11/29/17 08:00 101 11/29/17 07:15 96 Nasal Cannula 4.00 11/29/17 07:01 68 15 110/71 (84) 99 11/29/17 06:03 76 11/29/17 06:01 68 14 119/70 (86) 98 11/29/17 05:01 98.2 70 15 121/71 (88) 98 11/29/17 04:21 78 11/29/17 04:01 70 18 119/73 (88) 97 11/29/17 03:01 74 21 118/68 (85) 94 11/29/17 02:01 74 16 119/75 (90) 97 11/29/17 02:00 80 11/29/17 01:01 76 17 125/66 (85) 97 11/29/17 00:19 86 11/29/17 00:01 98.4 78 16 118/69 (85) 97 11/28/17 23:21 16 11/28/17 23:15 93 Nasal Cannula 4.00 11/28/17 23:12 91 Nasal Cannula 3.00 11/28/17 23:01 78 17 93/55 (68) 92 11/28/17 22:01 84 19 127/70 (89) 95 11/28/17 22:00 86 11/28/17 21:01 104 21 127/70 (89) 96 11/28/17 20:20 94 Nasal Cannula 3.00 11/28/17 20:03 96 Nasal Cannula 4.00 11/28/17 20:01 97.9 80 16 123/71 (88) 96 11/28/17 20:00 78 11/28/17 19:22 98 21 116/67 (83) 11/28/17 18:01 80 11/28/17 18:01 80 19 118/63 (81) 11/28/17 17:01 86 19 117/66 (83) 11/28/17 16:01 98.1 94 20 111/68 (82) 11/28/17 16:01 94 11/28/17 15:01 76 11/28/17 15:01 76 16 90/66 (74) 11/28/17 14:01 113/60 (77) 11/28/17 13:01 110 25 122/71 (88) 11/28/17 13:01 76 I/O 11/28/17 11/28/17 11/28/17 11/29/17 11/29/17 11/29/17 07:00 15:00 23:00 07:00 15:00 23:00 Intake Total 745 ml Output Total 1350 ml 798 ml 1100 ml Balance -1350 ml 745 ml -798 ml -1100 ml IV Total 745 ml Output Urine Total 1350 ml 798 ml 1100 ml # Bowel Movements 1 Result Diagram: 11/29/17 0445 11/28/17 1235 Objective Remarks GENERAL: This is a well-nourished, well-developed patient, in no apparent distress. CARDIOVASCULAR: Regular rate and rhythm without murmurs, gallops, or rubs. RESPIRATORY: Lungs clear bilaterally after nebulizer GASTROINTESTINAL: Abdomen soft, non-tender, nondistended. Normal active bowel sounds MUSCULOSKELETAL: Extremities without clubbing, cyanosis, or edema. NEURO: Alert & Oriented x4 to person, place, time, situation. Moves all ext x4 Procedures Intubation, extubation A/P Problem List: (1) Acute asthma exacerbation ICD Code: J45.901 - Unspecified asthma with (acute) exacerbation Status: Acute Plan: Patient with acute hypoxemic/hypercapnic respiratory failure due to uncontrolled severe and persistent chronic asthma Continue with p.o. steroid taper, p.o. antibiotics Encourage out of bed, PT consult pending Continue O2 as needed, currently on 4 L repeat ABG Leukocytosis improved Assessment and Plan Advance diet Advance activity DEDRA Bui Follow-up BM Discharge Planning Pending clinical improvement 2-3 days Home on oral medicines Wanda Mathews MD November 29, 2017 12:25
[2017-11-29] MEDS: ENOXAPARIN SODIUM 40 MG/0.4 ML SYRINGE SQ SCH (14:34)
[2017-11-30] VITALS (21 sets, daily range): BP systolic 122–140; BP diastolic 72–79; PULSE 71–131; RESP 11–24; TEMP 97.3–98.3; O2SAT 91–96
[2017-11-30] MEDS: RESP: ALBUTEROL 2.5 MG/IPRATROPIUM 0.5 MG NEB (SCH) NEB ×6 (03:57→23:19)
[2017-11-30] MEDS: RESP: BUDESONIDE 0.5 MG/2 ML NEB NEB SCH ×2 (07:53→19:39)
[2017-11-30] MEDS: AZITHROMYCIN 250 MG TAB PO SCH (08:33)
[2017-11-30] MEDS: CEFUROXIME AXETIL 500 MG TAB PO SCH ×2 (08:34→20:14)
[2017-11-30] MEDS: FAMOTIDINE 20 MG TAB PO SCH ×2 (08:34→20:14)
[2017-11-30] MEDS: predniSONE 20 MG TAB PO SCH ×3 (08:34→17:09)
[2017-11-30] MEDS: SODIUM CHLORIDE 0.9% FLUSH 10 ML FLUSH IV FLUSH SCH ×2 (08:59→20:14)
[2017-11-30] MEDS: TIOTROPIUM BROMIDE 18 MCG INH INH SCH (08:59)
--- NOTE | 2017-11-30 09:35 | HHI.PR ---
Subjective Remarks ALERT ON O2 N/C Objective Vital Signs Date Time Temp Pulse Resp B/P (MAP) Pulse Ox O2 Delivery O2 Flow Rate FiO2 11/30/17 08:00 98.3 72 17 136/75 (95) 94 11/30/17 08:00 80 11/30/17 07:57 96 Nasal Cannula 4.00 11/30/17 06:00 131 11/30/17 04:01 98.1 74 16 122/76 (91) 96 11/30/17 04:00 74 11/30/17 02:00 72 11/30/17 01:01 72 19 134/77 (96) 95 11/30/17 00:01 97.3 84 15 123/72 (89) 91 11/30/17 00:00 72 11/29/17 22:00 70 11/29/17 20:47 94 Nasal Cannula 4.00 11/29/17 20:00 98.2 91 20 131/81 (98) 94 11/29/17 20:00 91 11/29/17 18:00 92 11/29/17 17:01 98.1 78 18 128/71 (90) 92 11/29/17 16:00 99 11/29/17 14:01 94 13 111/66 (81) 96 11/29/17 14:00 91 11/29/17 13:01 98 16 118/63 (81) 90 11/29/17 12:01 114 23 116/63 (80) 11/29/17 12:00 89 11/29/17 11:01 98.4 84 17 104/60 (75) 93 11/29/17 10:01 92 16 109/64 (79) 93 11/29/17 10:00 83 I/O 11/29/17 11/29/17 11/29/17 11/30/17 11/30/17 11/30/17 06:59 14:59 22:59 06:59 14:59 22:59 Intake Total 960 ml 400 ml 320 ml Output Total 1100 ml 1300 ml 200 ml Balance -1100 ml -340 ml 200 ml 320 ml Intake Oral 960 ml 400 ml 320 ml Output Urine Total 1100 ml 1300 ml 200 ml # Voids 3 # Bowel Movements 0 Result Diagram: 11/29/17 0445 11/28/17 1235 Objective Remarks GENERAL: SKIN: Warm and dry. HEAD: Atraumatic. Normocephalic. EYES: Pupils equal and round. No scleral icterus. No injection or drainage. ENT: No nasal bleeding or discharge. Mucous membranes pink and moist. NECK: Trachea midline. No JVD. CARDIOVASCULAR: Regular rate and rhythm. RESPIRATORY: No accessory muscle use. Clear to auscultation. Breath sounds equal bilaterally. GASTROINTESTINAL: Abdomen soft, non-tender, nondistended. Hepatic and splenic margins not palpable. MUSCULOSKELETAL: Extremities without clubbing, cyanosis, or edema. No obvious deformities. NEUROLOGICAL: Awake and alert. No obvious cranial nerve deficits. Motor grossly within normal limits. Five out of 5 muscle strength in the arms and legs. Normal speech. PSYCHIATRIC: Appropriate mood and affect; insight and judgment normal. Assessment and Plan Assessment and Plan respiratory failure ON O2 NC good appetite PLAN INCREASE ACTIVITY bronchodilator therapy will sign off please call Alvin Patino MD November 30, 2017 09:35
[2017-11-30] MEDS: ENOXAPARIN SODIUM 40 MG/0.4 ML SYRINGE SQ SCH (13:46)
--- NOTE | 2017-11-30 17:30 | HHI.PR ---
Subjective Remarks Follow-up Severe and persistent acute on chronic asthma with acute hypoxemic/ hypercapnic respiratory failure November 30, 2017-patient seen and examined, continue to desats. Requiring high oxygen. Patient also reports some shortness of breath. Continued to have shallow breathing. Mom by the bedside Objective Vitals Vital Signs Date Time Temp Pulse Resp B/P (MAP) Pulse Ox O2 Delivery O2 Flow Rate FiO2 11/30/17 16:00 86 11/30/17 15:00 82 23 94 11/30/17 14:00 83 11/30/17 13:00 96 14 128/79 (95) 91 11/30/17 12:05 91 Nasal Cannula 4.00 11/30/17 12:00 101 11/30/17 12:00 84 18 92 11/30/17 10:00 71 11/30/17 08:00 98.3 72 17 136/75 (95) 94 11/30/17 08:00 80 11/30/17 07:57 96 Nasal Cannula 4.00 11/30/17 06:00 131 11/30/17 04:01 98.1 74 16 122/76 (91) 96 11/30/17 04:00 74 11/30/17 02:00 72 11/30/17 01:01 72 19 134/77 (96) 95 11/30/17 00:01 97.3 84 15 123/72 (89) 91 11/30/17 00:00 72 11/29/17 22:00 70 11/29/17 20:47 94 Nasal Cannula 4.00 11/29/17 20:00 98.2 91 20 131/81 (98) 94 11/29/17 20:00 91 11/29/17 18:00 92 I/O 11/29/17 11/29/17 11/29/17 11/30/17 11/30/17 11/30/17 07:00 15:00 23:00 07:00 15:00 23:00 Intake Total 960 ml 400 ml 320 ml Output Total 1100 ml 1300 ml 200 ml Balance -1100 ml -340 ml 200 ml 320 ml Intake Oral 960 ml 400 ml 320 ml Output Urine Total 1100 ml 1300 ml 200 ml # Voids 3 # Bowel Movements 0 Result Diagram: 11/29/17 0445 11/28/17 1235 Imaging Last Impressions Chest X-Ray 11/28/17 0600 Signed Impressions: Service Date/Time: Tuesday, November 28, 2017 05:23 - CONCLUSION: 1. Interval extubation and removal of nasogastric tube. 2. The lungs are clear. Wilian Ritchie MD Objective Remarks GENERAL: SKIN: Warm and dry. HEAD: Normocephalic. EYES: No scleral icterus. No injection or drainage. NECK: Supple, trachea midline. No JVD or lymphadenopathy. CARDIOVASCULAR: Regular rate and rhythm without murmurs, gallops, or rubs. RESPIRATORY: Breath sounds decrease bilaterally. No accessory muscle use. GASTROINTESTINAL: Abdomen soft, non-tender, nondistended. MUSCULOSKELETAL: No cyanosis, or edema. BACK: Nontender without obvious deformity. No CVA tenderness. Procedures Intubation, extubation A/P Problem List: (1) Acute asthma exacerbation ICD Code: J45.901 - Unspecified asthma with (acute) exacerbation Status: Acute Assessment and Plan 22-year-old man with Severe and persistent acute on chronic asthma with acute hypoxemic/hypercapnic respiratory failure Continue with p.o. steroid taper, p.o. antibiotic, Spiriva, bronchodilator Maintain oxygen saturation above 88% Appreciate input from pulmonary medicine Tobacco cessation strongly encouraged DVT prophylaxis: Bilateral SCDs Danilo Madera MD November 30, 2017 17:30
[2017-12-01] VITALS (13 sets, daily range): BP systolic 107–124; BP diastolic 58–84; PULSE 60–106; RESP 14–22; TEMP 97.8–98.2; O2SAT 93–98
[2017-12-01] MEDS: RESP: ALBUTEROL 2.5 MG/IPRATROPIUM 0.5 MG NEB (SCH) NEB ×5 (03:35→19:44)
[2017-12-01] MEDS: SODIUM CHLORIDE 0.9% FLUSH 10 ML FLUSH IV FLUSH SCH ×2 (09:41→19:54)
[2017-12-01] MEDS: FAMOTIDINE 20 MG TAB PO SCH ×2 (09:41→19:53)
[2017-12-01] MEDS: CEFUROXIME AXETIL 500 MG TAB PO SCH ×2 (09:41→19:53)
[2017-12-01] MEDS: predniSONE 20 MG TAB PO SCH ×3 (09:41→19:07)
[2017-12-01] MEDS: AZITHROMYCIN 250 MG TAB PO SCH (09:45)
[2017-12-01] MEDS: RESP: BUDESONIDE 0.5 MG/2 ML NEB NEB SCH ×2 (10:33→19:44)
[2017-12-01] MEDS: TIOTROPIUM BROMIDE 18 MCG INH INH SCH (11:31)
--- NOTE | 2017-12-01 12:29 | HHI.PR ---
Subjective Remarks Follow-up Severe and persistent acute on chronic asthma with acute hypoxemic/ hypercapnic respiratory failure November 30, 2017-patient seen and examined, continue to desats. Requiring high oxygen. Patient also reports some shortness of breath. Continued to have shallow breathing. Mom by the bedside December 01, 2017-patient seen and examined, currently down on 3 L nasal cannula and reports improvement of shortness of breath. Patient was able to ambulate with physical therapy without any significant respiratory issues. Dad by the bedside. States he would like to be discharged home today. Objective Vitals Vital Signs Date Time Temp Pulse Resp B/P (MAP) Pulse Ox O2 Delivery O2 Flow Rate FiO2 12/01/17 10:34 94 Nasal Cannula 3.50 12/01/17 04:00 97.8 62 16 108/74 (85) 98 12/01/17 04:00 62 12/01/17 00:00 80 12/01/17 00:00 98.2 80 18 107/58 (74) 94 11/30/17 20:00 91 11/30/17 19:41 94 Nasal Cannula 4.00 11/30/17 19:38 98.0 88 24 140/78 (98) 94 11/30/17 18:00 79 11/30/17 17:00 97.9 74 11 127/77 (94) 92 11/30/17 16:00 86 11/30/17 15:00 82 23 94 11/30/17 14:00 83 11/30/17 13:00 96 14 128/79 (95) 91 I/O 11/30/17 11/30/17 11/30/17 12/01/17 12/01/17 12/01/17 07:00 15:00 23:00 07:00 15:00 23:00 Intake Total 320 ml 680 ml 640 ml 240 ml Balance 320 ml 680 ml 640 ml 240 ml Intake Oral 320 ml 680 ml 640 ml 240 ml # Voids 3 3 2 2 # Bowel Movements 0 1 0 Result Diagram: 11/29/17 0445 11/28/17 1235 Imaging Last Impressions Chest X-Ray 11/28/17 0600 Signed Impressions: Service Date/Time: Tuesday, November 28, 2017 05:23 - CONCLUSION: 1. Interval extubation and removal of nasogastric tube. 2. The lungs are clear. Wilian Ritchie MD Objective Remarks GENERAL: NAD SKIN: Warm and dry. HEAD: Normocephalic. EYES: No scleral icterus. No injection or drainage. NECK: Supple, trachea midline. No JVD or lymphadenopathy. CARDIOVASCULAR: Regular rate and rhythm without murmurs, gallops, or rubs. RESPIRATORY: Breath sounds decrease bilaterally. No accessory muscle use. GASTROINTESTINAL: Abdomen soft, non-tender, nondistended. MUSCULOSKELETAL: No cyanosis, or edema. BACK: Nontender without obvious deformity. No CVA tenderness. Procedures Intubation, extubation A/P Problem List: (1) Acute asthma exacerbation ICD Code: J45.901 - Unspecified asthma with (acute) exacerbation Status: Acute Assessment and Plan 22-year-old man with Severe and persistent acute on chronic asthma with acute hypoxemic/hypercapnic respiratory failure Continue with p.o. steroid taper, p.o. antibiotic, Spiriva, bronchodilator Maintain oxygen saturation above 88%, patient currently on nasal cannula 3 L Appreciate input from pulmonary medicine Tobacco cessation strongly encouraged Perform walk test today December 01, 2017 DVT prophylaxis: Bilateral SCDs Danilo Madera MD December 01, 2017 12:29
[2017-12-01] MEDS: ENOXAPARIN SODIUM 40 MG/0.4 ML SYRINGE SQ SCH (15:19)
[2017-12-01] MEDS: RESP: ALBUTEROL 2.5 MG/3 ML NEB (PRN) NEB (23:37)
[2017-12-02] VITALS (7 sets, daily range): BP systolic 104–124; BP diastolic 59–72; PULSE 63–124; RESP 14–17; TEMP 97.4–98.3; O2SAT 94–98
[2017-12-02] MEDS: RESP: ALBUTEROL 2.5 MG/3 ML NEB (PRN) NEB ×3 (03:02→11:45)
[2017-12-02] MEDS: RESP: BUDESONIDE 0.5 MG/2 ML NEB NEB SCH (07:55)
[2017-12-02] MEDS: TIOTROPIUM BROMIDE 18 MCG INH INH SCH (08:32)
[2017-12-02] MEDS: SODIUM CHLORIDE 0.9% FLUSH 10 ML FLUSH IV FLUSH SCH (08:34)
[2017-12-02] MEDS: predniSONE 20 MG TAB PO SCH (08:34)
[2017-12-02] MEDS: CEFUROXIME AXETIL 500 MG TAB PO SCH (08:34)
[2017-12-02] MEDS: AZITHROMYCIN 250 MG TAB PO SCH (08:35)
[2017-12-02] MEDS: FAMOTIDINE 20 MG TAB PO SCH (08:35)
--- NOTE | 2017-12-02 10:17 | HHI.PR ---
Subjective Remarks Follow-up Severe and persistent acute on chronic asthma with acute hypoxemic/ hypercapnic respiratory failure November 30, 2017-patient seen and examined, continue to desats. Requiring high oxygen. Patient also reports some shortness of breath. Continued to have shallow breathing. Mom by the bedside December 01, 2017-patient seen and examined, currently down on 3 L nasal cannula and reports improvement of shortness of breath. Patient was able to ambulate with physical therapy without any significant respiratory issues. Dad by the bedside. States he would like to be discharged home today. December 03, 2027-patient seen and examined, now down to 1 L nasal cannula and states he is feeling much better. Objective Vitals Vital Signs Date Time Temp Pulse Resp B/P (MAP) Pulse Ox O2 Delivery O2 Flow Rate FiO2 12/02/17 08:00 97.4 124 124/66 (85) 12/02/17 07:50 98 Nasal Cannula 3.00 12/02/17 06:00 63 12/02/17 04:00 84 12/02/17 04:00 97.8 84 16 104/59 (74) 98 12/02/17 00:00 92 12/02/17 00:00 98.3 92 14 120/72 (88) 94 12/01/17 22:00 94 12/01/17 20:00 102 12/01/17 20:00 98.2 93 22 112/78 (89) 93 12/01/17 19:44 95 Nasal Cannula 3.00 12/01/17 18:00 82 12/01/17 16:15 98.2 88 22 117/74 (88) 96 12/01/17 16:00 86 12/01/17 14:00 106 12/01/17 13:38 3.00 12/01/17 12:00 86 12/01/17 12:00 97.8 104 14 120/74 (89) 93 12/01/17 10:34 94 Nasal Cannula 3.50 I/O 12/01/17 12/01/17 12/01/17 12/02/17 12/02/17 12/02/17 07:00 15:00 23:00 07:00 15:00 23:00 Intake Total 240 ml 600 ml 600 ml 600 ml Output Total 400 ml Balance 240 ml 600 ml 200 ml 600 ml Intake Oral 240 ml 600 ml 600 ml 600 ml Output Urine Total 400 ml # Voids 2 4 2 # Bowel Movements 0 2 0 Result Diagram: 11/29/17 0445 11/28/17 1235 Objective Remarks GENERAL: NAD SKIN: Warm and dry. HEAD: Normocephalic. EYES: No scleral icterus. No injection or drainage. NECK: Supple, trachea midline. No JVD or lymphadenopathy. CARDIOVASCULAR: Regular rate and rhythm without murmurs, gallops, or rubs. RESPIRATORY: Breath sounds decrease bilaterally. No accessory muscle use. GASTROINTESTINAL: Abdomen soft, non-tender, nondistended. MUSCULOSKELETAL: No cyanosis, or edema. BACK: Nontender without obvious deformity. No CVA tenderness. Procedures Intubation, extubation A/P Problem List: (1) Acute asthma exacerbation ICD Code: J45.901 - Unspecified asthma with (acute) exacerbation Status: Acute Assessment and Plan 22-year-old man with Severe and persistent acute on chronic asthma with acute hypoxemic/hypercapnic respiratory failure Continue with p.o. steroid taper, p.o. antibiotic, Spiriva, bronchodilator Maintain oxygen saturation above 88%, patient currently on nasal cannula 2 L, wean off oxygen Appreciate input from pulmonary medicine Tobacco cessation strongly encouraged Perform walk test today December 02, 2017 DVT prophylaxis: Bilateral SCDs Danilo Madera MD December 02, 2017 10:17
[2017-12-02] MEDS ORDERED: ALBUAER3 INH (11:33)
[2017-12-02] MEDS ORDERED: PRED10PA PO (11:33)
[2017-12-02] MEDS ORDERED: SPIRCAP INH (11:33)
[2017-12-02] MEDS ORDERED: SYMB80AE INH (11:33)
--- NOTE | 2017-12-02 11:36 | HHI.DS ---
Discharge Summary Admission Date November 24, 2017 at 05:53 Discharge Date: December 02, 2017 Admitting Diagnosis Hypoxia, asthma exacerbation (1) Acute asthma exacerbation ICD Code: J45.901 - Unspecified asthma with (acute) exacerbation Status: Acute Procedures Intubation, extubation Brief History - From Admission This patient is a 22-year-old gentleman with asthma. He has had at least 6 hospital evaluations related to asthma exacerbations in the hospital in the last 12 months. He has never been intubated but has come to the hospital with increased work of breathing with poor response to his home albuterol nebulizers. Here he has gotten steroids and nebulizers and has felt better. He has significant hypoxemia on exam. He has denied any sick contacts or recent travel. At home he does not take steroids. He does take pro-air as well as albuterol nebs as needed. He has had some improvement here in the hospital and is recommended for further evaluation treatment due to acute hypoxemic respiratory failure secondary to asthma exacerbation. CBC/BMP: 11/29/17 0445 11/28/17 1235 Significant Findings Laboratory Tests Test 11/29/17 13:51 Blood Gas Base Excess 2.4 mmol/L (-2-2) Arterial Blood pH 7.50 (7.380-7.420) Arterial Blood Partial Pressure CO2 33 mmHg (38-42) Imaging Last Impressions Chest X-Ray 11/28/17 0600 Signed Impressions: Service Date/Time: Tuesday, November 28, 2017 05:23 - CONCLUSION: 1. Interval extubation and removal of nasogastric tube. 2. The lungs are clear. Wilian Ritchie MD PE at Discharge GENERAL: NAD SKIN: Warm and dry. HEAD: Normocephalic. EYES: No scleral icterus. No injection or drainage. NECK: Supple, trachea midline. No JVD or lymphadenopathy. CARDIOVASCULAR: Regular rate and rhythm without murmurs, gallops, or rubs. RESPIRATORY: Breath sounds decrease bilaterally. No accessory muscle use. GASTROINTESTINAL: Abdomen soft, non-tender, nondistended. MUSCULOSKELETAL: No cyanosis, or edema. BACK: Nontender without obvious deformity. No CVA tenderness. Hospital Course Patient initially admitted under the care of critical care medicine, and internal acute hypoxic and hypercapnic respiratory failure along with severe asthma exacerbation requiring intubation. Patient was subsequently extubated the following day. He was treated steroid, bronchodilators, antibiotic will consultation to pulmonary medicine. His skin was subsequently transferred to hospitalist. Patient had multiple episodes of desaturation. He continued to require high oxygen however prior to discharge he woke this was performed and patient sat was above 92% on room air. DVT and GI prophylaxis were provided. Prior to discharge patient's conditions improve and vitals remained stable. Pt Condition on Discharge: Good Discharge Disposition: Discharge Home Discharge Time: <= 30 minutes Discharge Instructions DIET: Follow Instructions for: As Tolerated, No Restrictions Activities you can perform: Regular-No Restrictions Follow up Referrals: PCP Follow-up - 1 Week Pulmonology New Medications: Albuterol 8.5 GM Inh (Proair Hfa 8.5 GM Inh) 90 Mcg/Act Aer 2 PUFF INH Q4-6H PRN for SHORTNESS OF BREATH, #1 INHALER 3 Refills 108 mcg/actuation Budesonide-Formoterol Inh (Symbicort Inh) 80-4.5 Mcg/Act Aero 2 PUFF INH Q12HR for Asthma Management, #1 INHALER 0 Refills Prednisone (21) 10 mg tab Dose Pack (Prednisone (21) 10 mg tab Dose Pack) 10 Mg Pack 10 MG PO DIRECTED for Inflammation, #1 DSPK 0 Refills Tiotropium Inh (Spiriva Handihaler) 18 Mcg Cap 18 MCG INH DAILY for Breathing Treatment, #30 CAP 1 capsule = 18 mcg Continued Medications: Albuterol 8.5 GM Inh (Proair Hfa 8.5 GM Inh) 90 Mcg/Act Aer 2 PUFF INH Q4-6H PRN for SHORTNESS OF BREATH, #1 INHALER 0 Refills 108 mcg/actuation Albuterol Neb (Albuterol Neb) 2.5 Mg/3 Ml Neb 2.5 MG NEB Q4HR NEB for Breathing Treatment, #60 NEBULE 0 Refills While awake Danilo Madera MD December 02, 2017 11:36
== END 2017-12-02 13:19 | disposition home or self-care (01) | DRG 208 ==
LOC: PHED 04:03 → PHEDA 05:53 → UNDOADMOB 05:53 → PHEDA 05:53 → PHICU 08:01
PROVIDERS: ADMIT Hospitalist; ATTEND Hospitalist
PROC: 5A1945Z Respiratory Ventilation, 24-96 Consecutive Hours (ICD-10-PCS; principal; 2017-11-24)
PROC: 0BH17EZ Insertion of Endotracheal Airway into Trachea, Via Natural or Artificial Opening (ICD-10-PCS; 2017-11-24)
PROC: 5A09357 Assistance with Respiratory Ventilation, Less than 24 Consecutive Hours, Continuous Positive Airway Pressure (ICD-10-PCS; 2017-11-24)
DX: J96.01 Acute respiratory failure with hypoxia (principal); I95.89 Other hypotension; J45.52 Severe persistent asthma with status asthmaticus; E87.2 Acidosis; K21.9 Gastro-esophageal reflux disease without esophagitis; R00.0 Tachycardia, unspecified; J20.8 Acute bronchitis due to other specified organisms; J96.02 Acute respiratory failure with hypercapnia; I95.2 Hypotension due to drugs; T42.75XA Adverse effect of unspecified antiepileptic and sedative-hypnotic drugs, initial encounter; E86.1 Hypovolemia; E87.6 Hypokalemia; T38.0X5A Adverse effect of glucocorticoids and synthetic analogues, initial encounter; R73.9 Hyperglycemia, unspecified; D72.829 Elevated white blood cell count, unspecified; F12.90 Cannabis use, unspecified, uncomplicated; Z82.5 Family history of asthma and other chronic lower respiratory diseases; Z87.891 Personal history of nicotine dependence
CPT/HCPCS: 31500; 36600; 71045; 76937; 80048; 80053; 81001; 82805; 82948; 83036; 83735; 85007; 85025; 85027; 85379; 87040; 87070; 87205; 87420; 87641; 93005; 94002; 94003; 94150; 94618; 94640; 94664; 94799; 96365; 96375; J0456; J0696; J1120; J1650; J1815; J2060; J2250; J2370; J2405; J2930; J3010; J3475; J7030; J7050; J7060; J7120; J7512; J7613; J7626; J7644